=== PATIENT | male | born 1950 | race Caucasian/White ===

== ENCOUNTER → 2017-12-04 | Outpatient (CLI) | payer MEDICARE, OTHER | LOC: RAD 07:25 | PROVIDERS: ATTEND Family Medicine | DX: R07.9 Chest pain, unspecified (principal) | CPT/HCPCS: 93306 ==

== ENCOUNTER → 2018-01-10 | Day surgery (SDC) | payer MEDICARE, OTHER ==
[2018-01-09 11:22] LABS: BASOPHILS # (AUTO) 0.1 (0.0-0.1); BASOPHILS % 0.6 % (0.0-1.0); EOSINOPHILS # (AUTO) 0.1 (0.0-0.4); EOSINOPHILS % 1.6 % (0.0-6.0); HEMOGLOBIN 10.8 g/dL (14.0-18.0); LYMPHOCYTES # (AUTO) 1.1 (1.0-3.2); LYMPHOCYTES % 11.7 % (18.0-39.1); MEAN CORPUSCULAR HEMOGLOBIN 30.3 pg (28-32); MEAN CORPUSCULAR HGB CONC 33.8 g/dL (31-35); MEAN CORPUSCULAR VOLUME 89.9 fL (81-99); MONOCYTES # (AUTO) 0.8 (0.2-0.8); MONOCYTES % 8.5 % (4.4-11.3); NEUTROPHILS # (AUTO) 6.9 (2.1-6.9); PLATELET COUNT 217 x10e3/uL (140-360); RED BLOOD COUNT 3.56 x10e6/uL (4.3-5.7); RED CELL DISTRIBUTION WIDTH 11.9 % (11.7-14.4)
[~2018-01-10] MED LIST: AMIODARONE HCL200 MG PO; AMLODIPINE BESY10 MG PO; AMLODIPINE BESYL5 MG PO; ATORVASTATIN CA20 MG PO; BUMETANIDE1 MG PO; DIGOXIN125 MCG PO; ELIQUIS PO; FUROSEMIDE40 MG PO; GLIMEPIRIDE2 MG PO; HUMALOG100 UNIT/1 SQ; HYDRALAZINE HCL25 MG PO; LANTUS 3ML100 UNITS/ SC; LIDOCAINE HCL 2% LOCAL INJ 5 ML SDV VIAL INJ ONE; LISINOPRIL2.5 MG PO; METOPROLOL TART25 MG PO; MIDAZOLAM HCL 2 MG/2 ML VIAL ONE; NOVOLOG100 UNIT/1 SC; OMEPRAZOLE40 MG PO; PROPOFOL IV EMULSION 10 MG/ML 50 ML VIAL ONE; SPIRONOLACTONE25 MG PO; VESICARE5 MG PO; VITAMIN D22000 UNIT PO
[2018-01-10 11:41] VITALS: BP 120/53
--- NOTE | 2018-01-10 12:44 | Operative Report ---
DATE OF PROCEDURE: January 10, 2018 REFERRING PHYSICIAN: Dr. Re Bauer. PROCEDURE PERFORMED: Esophagogastroduodenoscopy with biopsies and colonoscopy with polypectomy. INDICATIONS FOR ESOPHAGOGASTRODUODENOSCOPY: History of intermittent bouts of nausea and vomiting, black stools. INDICATIONS FOR COLONOSCOPY: Colorectal cancer screening, positive fecal occult blood. MEDICATION: Patient was done under MAC. Please see anesthesiologist's note. PROCEDURE: With patient in left lateral decubitus position, flexible fiberoptic Olympus gastroscope was introduced into the esophagus under direct visualization without any difficulty. There was a minute tongue of velvety red mucosa noted to extend proximally from the GE junction that was biopsied to rule out Lundberg's. The scope was then advanced with ease into the stomach and the mucosa overlying the antrum and the body revealed some patchy erythema and low-grade to moderate edema and biopsies were obtained, sent to stain for H. pylori. Pylorus was of normal contour and shape. It was intubated with ease and the scope was advanced all the way to the second portion of the duodenum. The scope was then withdrawn slowly. Mucosa overlying the proximal second portion and the duodenal bulb appeared to be within normal limits. The scope was then withdrawn back into the stomach and retroflexed. Mucosa overlying the fundus and the cardia appeared to be within normal limits. The scope was then straightened out. It was subsequently withdrawn. Patient tolerated the procedure well. IMPRESSION 1. Mild distal esophagitis. 2. Rule out Lundberg's esophagus. 3. Gastritis biopsied. Biopsies sent to stain for Helicobacter pylori. PLAN: Follow up histology. Increased omeprazole to 40 mg 1 p.o. a.c. b.i.d. PROCEDURE FOR COLONOSCOPY: The patient was then turned around. After adequate lubrication of the anal canal, a flexible fiberoptic Olympus colonoscope was inserted into the rectum with ease and advanced all the way to the cecum. It was then withdrawn slowly. Mucosa overlying the cecum, ascending colon, and transverse colon appeared to be within normal limits. One polyp was hot biopsied from the descending colon. Some minimal diverticulosis was noted in the distal descending and the sigmoid colon. One polyp was snared from the sigmoid colon. The rectum appeared to be within normal limits. The scope was then retroflexed into the distal rectum and small internal hemorrhoids were noted, none of which was actively bleeding. The scope was then straightened out. The scope was subsequently withdrawn. Patient tolerated the procedure well. IMPRESSION 1. Descending colon polyp hot biopsied. 2. Diverticulosis, minimal. 3. Sigmoid colon polyp snared. 4. Internal hemorrhoids, none actively bleeding. PLAN: Follow up histology. Initiate high-fiber, low-fat diet. Initiate high-fiber supplement. Patient will need a followup colonoscopy in 3 to 5 years. Job#: [id number] VAS cc:DR RE BAUER
== END | disposition home or self-care (01) ==
LOC: OR 08:23
PROVIDERS: ATTEND Internal Medicine Gastroenterology
DX: Z12.11 Encounter for screening for malignant neoplasm of colon (principal); D12.5 Benign neoplasm of sigmoid colon; R11.2 Nausea with vomiting, unspecified; R05 Cough; K92.1 Melena; E78.5 Hyperlipidemia, unspecified; I10 Essential (primary) hypertension; I25.10 Atherosclerotic heart disease of native coronary artery without angina pectoris; Z95.2 Presence of prosthetic heart valve; K20.9 Esophagitis, unspecified; K63.5 Polyp of colon; K57.30 Diverticulosis of large intestine without perforation or abscess without bleeding; K64.8 Other hemorrhoids; E11.9 Type 2 diabetes mellitus without complications; K29.50 Unspecified chronic gastritis without bleeding
CPT/HCPCS: 36415 ×2; 43239; 45384; 45385; 82948; 85025; 88305; 88312; 93005; J2001; J2250; 45378

== ENCOUNTER 2018-06-30 12:45 | Inpatient (IN) | payer MEDICARE, OTHER ==
[~2018-06-30] VITALS: Ht 175.3 cm; Wt 99.5 kg
[~2018-06-30 12:45] MED LIST changes: -LIDOCAINE HCL 2% LOCAL INJ 5 ML SDV VIAL INJ ONE; -MIDAZOLAM HCL 2 MG/2 ML VIAL ONE; -PROPOFOL IV EMULSION 10 MG/ML 50 ML VIAL ONE
--- OUTSIDE RECORDS SUMMARY | 2018-06-30 12:48 | XMS REPORT | Clinical Summary ---
Author Author [facility] Organization [facility] Address Unknown Phone Unavailable Care Team Providers Care Lamps Tester And Inspector Name Role Phone Thom Finn MD PCP Allergies No Known Allergies Medications End Date Status Medication Sig Dispensed Refills Start Date Active aspirin (ECOTRIN) 81 MG Take 81 mg by 0 enteric coated tablet mouth daily. 07/04/2017 amIODarone (PACERONE) 200 Take 1 tablet 30 tablet 0 201 MG tablet (200 mg 8 total) by mouth daily for 30 days. 07/04/2017 amLODIPine (NORVASC) 5 mg Take 1 tablet 30 tablet 0 tablet (5 mg total) 8 by mouth daily for 30 days. 07/03/2017 apixaban (ELIQUIS) 2.5 mg Take 1 tablet 60 tablet 0 tablet (2.5 mg 8 total) by mouth 2 (two) times a day for 30 days. 07/03/2017 atorvastatin (LIPITOR) 40 Take 1 tablet 30 tablet 0 MG tablet (40 mg total) 8 by mouth nightly for 30 days. 07/04/2017 digOXIN (LANOXIN) 125 mcg Take 1 tablet 30 tablet 0 tablet (125 mcg 8 total) by mouth daily for 30 days. 07/09/2017 ergocalciferol (VITAMIN Take 1 4 capsule 0 D2) 50,000 unit capsule capsule 8 (50,000 Units total) by mouth once a week for 30 days. 07/03/2017 ferrous sulfate 325 (65 Take 1 tablet 60 tablet 0 FE) MG tablet (325 mg 8 total) by mouth 2 (two) times a day with meals for 30 days. 07/04/2017 furosemide (LASIX) 40 mg Take 1 tablet 30 tablet 0 tablet (40 mg total) 8 by mouth daily for 30 days. 07/03/2017 hydrALAZINE (APRESOLINE) Take 1 tablet 90 tablet 0 25 MG tablet (25 mg total) 8 by mouth every 8 (eight) hours for 30 days. 07/03/2017 insulin GLARGINE (LANTUS) Inject 20 6 mL 0 100 unit/mL injection Units under 8 (vial) the skin nightly for 30 days. 07/03/2017 insulin lispro (HumaLOG) Inject 10 10 mL 12 100 unit/mL injection Units under 8 the skin daily before dinner for 30 days. 07/04/2017 insulin lispro (HumaLOG) Inject 14 10 mL 12 100 unit/mL injection Units under 8 the skin daily before lunch for 30 days. 07/04/2017 insulin lispro (HumaLOG) Inject 16 10 mL 12 100 unit/mL injection Units under 8 the skin daily with breakfast for 30 days. 07/04/2017 lisinopril Take 1 tablet 30 tablet 0 (PRINIVIL,ZESTRIL) 5 mg (5 mg total) 8 tablet by mouth daily for 30 days. 07/03/2017 metoprolol tartrate Take 1 tablet 60 tablet 0 (LOPRESSOR) 25 mg tablet (25 mg total) 8 by mouth 2 (two) times a day for 30 days. 07/03/2017 spironolactone Take 1 tablet 60 tablet 0 (ALDACTONE) 25 MG tablet (25 mg total) 8 by mouth 2 (two) times a day for 30 days. 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 Last Filed Vital Signs Not on file Plan of Treatment Health Maintenance Due Date Last Done Comments DIABETIC RETINAL EYE EXAM 1950 DIABETIC FOOT EXAM 1958 URINE MICROALBUMIN 1958 COLON CANCER SCREENING 1998 SHINGLES VACCINES (1 of 1998 2) PNEUMOCOCCAL 2013 POLYSACCHARIDE VACCINE AGE 65 AND OVER PNEUMOCOCCAL-13 2013 INFLUENZA VACCINE 12/13/2017 Implants Device Identifier Shelf Expiration Date Model / Serial / Lot Implanted Type [place] Manufactur [place] 6500F / / Lead Pace David Mycrdl Unipol Tmpry Cardiovasc N/A: N/A MEDTR[employer] Streamline - [id number] [facility] [place] - Implanted: 05/03/2017 (Quantity not Implants CARDIAC on file) SRGRY 06/23/2020 E100 23A 00 / [id number] / [id number] Valve Aortc Stntd Tiss Annls W/ Cardiovasc N/A: N/A ST TISHA Linx Ac Tech 23mm Epic - [id number] [facility] STRUCTURAL Implanted: 05/03/2017 (Quantity not Implants HEART on file) 6500F / / Lead Pace David Mycrdl Unipol Tmpry Cardiovasc N/A: N/A [employer] Streamline - [id number] [facility] [place] - Implanted: 05/03/2017 (Quantity not Implants CARDIAC on file) SRGRY 6500F / / Lead Pace David Mycrdl Unipol Tmpry Cardiovasc N/A: N/A [employer] Streamline - [id number] [facility] [place] - Implanted: 05/03/2017 (Quantity not Implants CARDIAC on file) SRGRY [id number] / / Clip Ligtng Weck Hemoclip Plus W/ Medical N/A: N/A TELEFLEX Tape Ti Lg - [id number] Clips for MEDICAL Implanted: 05/03/2017 (Quantity not Internal on file) Use [id number] / / Clip Ligtng [place] Hemoclip Plus W/ Medical N/A: N/A TELEFLEX Tape Ti Med - [id number] Clips for MEDICAL Implanted: 05/03/2017 (Quantity not Internal on file) Use 03/11/2022 [id number] / / [id number] [place] Perph Vasclr Ptfe 1.2x10cm Vascular N/A: N/A BARD 1.65mm - [id number] Graft PERIPHERAL Implanted: 05/03/2017 (Quantity not VASCULAR on file) 01/09/2022 [id number] / / [id number] [place] Perph Vasclr Ptfe 1.2x10cm Vascular N/A: N/A BARD 1.65mm - [id number] Graft PERIPHERAL Implanted: 05/03/2017 (Quantity not VASCULAR on file) 10/09/2021 [id number] / / [id number] [place] Perph Vasclr Ptfe 1.2x10cm Vascular N/A: N/A BARD 1.65mm - [id number] Graft PERIPHERAL Implanted: 05/03/2017 (Quantity not VASCULAR on file) Procedures Comments Procedure Name Priority Date/Time Associated Diagnosis TRANSFUSE PLATELETS Routine 01/17/2018 5:46 PM CDT after 06/29/2017 Results * Transfuse platelets (01/17/2018 5:46 PM CDT) after 06/29/2017 Insurance Payer Benefit Subscriber ID Type Phone Address Plan / Group MEDICARE MEDICARE xxxxxxxxxx Medicare [place], [place] PART A AND B BANKERS LIFE AND CASUALTY BANKERS xxxxxxxxx Commercial LIFE AND CASUALTY Advance Directives Patient has advance care planning documents on file. For more information, mason saravia contact: Farhat Scott [address] [place] [address]
[2018-06-30 13:33] LABS: BASOPHILS % 0.2 % (0.0-1.0); HEMATOCRIT 42.2 % (38.2-49.6); HEMOGLOBIN 15.2 g/dL (14.0-18.0); LYMPHOCYTES # (AUTO) 0.1 (1.0-3.2); LYMPHOCYTES % 1.1 % (18.0-39.1); MEAN CORPUSCULAR HEMOGLOBIN 30.9 pg (28-32); MEAN CORPUSCULAR VOLUME 85.8 fL (81-99); MONOCYTES # (AUTO) 0.4 (0.2-0.8); MONOCYTES % 3.5 % (4.4-11.3); NEUTROPHILS # (AUTO) 11.2 (2.1-6.9); NEUTROPHILS % 94.5 % (38.7-80.0); PLATELET COUNT 168 x10e3/uL (140-360); RED BLOOD COUNT 4.92 x10e6/uL (4.3-5.7); RED CELL DISTRIBUTION WIDTH 12.7 % (11.7-14.4)
[2018-06-30 13:51] LABS: INR 0.95; PROTHROMBIN TIME 13.5 seconds (11.9-14.5)
[2018-06-30 13:52] LABS: PARTIAL THROMBOPLASTIN TIME 28.3 seconds (23.8-35.5)
[2018-06-30] MEDS: SODIUM CHLORIDE 0.9% 1000ML 1,000 ML IV SCH ×3 (14:00→18:04)
[2018-06-30 14:01] LABS: ALBUMIN 3.8 g/dL (3.5-5.0); ALBUMIN/GLOBULIN RATIO 1.2 (0.8-2.0); ANION GAP 19.7 mmol/L (8-16); CALCIUM 9.3 mg/dL (8.4-10.2); CREATININE, SERUM 2.06 mg/dL (0.72-1.25); POTASSIUM 4.7 mmol/L (3.5-5.1)
[2018-06-30 14:07] LABS: CREATINE KINASE MB 0.3 ng/mL (0-5.0)
--- NOTE | 2018-06-30 14:09 | NUR ---
[facility] FROM LAB CALLED TO REPORT CRITICAL BLOOD GLUCOSE 475 MG/DL. INFORMED DR. ANDERSON AND THOM, RN PRIMARY NURSE.
[2018-06-30] MEDS ORDERED: ACETAMINOPHEN 325 MG TAB PO ONE (14:30)
--- NOTE | 2018-06-30 14:41 | Diagnostic Imaging Report ---
EXAMINATION: CHEST SINGLE (PORTABLE) INDICATION: ^FEVER ^[id number] ^1330 COMPARISON: None FINDINGS: AP view TUBES and LINES: None. LUNGS: Lungs are well inflated. Lungs are clear. There is no evidence of pneumonia or pulmonary edema. PLEURA: No pleural effusion or pneumothorax. HEART AND MEDIASTINUM: The cardiomediastinal silhouette is unremarkable.. BONES AND SOFT TISSUES: Intact median sternotomy wires. Soft tissues are unremarkable. UPPER ABDOMEN: No free air under the diaphragm. IMPRESSION: No acute thoracic abnormality. Signed by: Dr. Clair Mead M.D. on 06/30/2018 2:38 PM
[2018-06-30] MEDS ORDERED: METOPROLOL TART25 MG PO (14:47)
[2018-06-30] MEDS ORDERED: OMEPRAZOLE40 MG PO (14:47)
[2018-06-30] MEDS ORDERED: FERROUS SULFAT325 MG PO (14:47)
[2018-06-30] MEDS ORDERED: BUMETANIDE1 MG PO (14:47)
[2018-06-30] MEDS ORDERED: ELIQUS PO (14:47)
[2018-06-30] MEDS ORDERED: LIPITOR20 MG PO (14:47)
[2018-06-30] MEDS ORDERED: BENZONATATE100 MG PO (14:47)
[2018-06-30] MEDS ORDERED: PREDNISONE10 MG PO (14:47)
[2018-06-30] MEDS ORDERED: LASIX40 MG PO (14:47)
[2018-06-30 14:55] LABS: CLARITY,URINE CLEAR (CLEAR); COLOR,URINE YELLOW (YELLOW); LEUKOCYTE ESTERASE ,URINE NEGATIVE (NEGATIVE); NITRITE,URINE NEGATIVE (NEGATIVE); PROTEIN,URINE DIPSTICK NEGATIVE (NEGATIVE)
[2018-06-30 14:56] LABS: BILIRUBIN,URINE NEGATIVE (NEGATIVE); KETONES,URINE 1+ (NEGATIVE); URINE UROBILINOGEN 0.2 mg/dL (0.2 - 1)
[2018-06-30] MEDS ORDERED: SPIRONOLACTONE25 MG PO (14:59)
[2018-06-30] MEDS ORDERED: VESICARE5 MG PO (14:59)
[2018-06-30] MEDS ORDERED: AMIODARONE HCL200 MG PO (14:59)
[2018-06-30 15:07] LABS: EPITHELIAL CELLS,URINE FEW /LPF; RBC,URINE 0-5 /HPF (0-5); WBC,URINE (MAN) 0-5 /HPF (0-5)
[2018-06-30 15:13] LABS: BAND NEUTROPHILS % (MANUAL) 3 %; LYMPHOCYTES % (MANUAL) 3 % (19-48); MONOCYTES % (MANUAL) 5 % (3.4-9.0); NEUTROPHILS % (MANUAL) 89 % (40-74)
[2018-06-30 15:15] LABS: PLATELET ESTIMATE ADEQUATE; PLATELET MORPHOLOGY COMMENT NORMAL
[2018-06-30] MEDS ORDERED: INSULIN REGULAR, HUMAN 100 UNIT/1 ML 3ML VIAL IV ONE (15:15)
[2018-06-30 15:17] LABS: ANISOCYTOSIS SLIGHT; RBC MORPHOLOGY COMMENT NORMAL
--- NOTE | 2018-06-30 15:28 | Diagnostic Imaging Report ---
ADDENDUM #[address]. Vidhi Mcdonald's report were reviewed and signed by Dr. Ramya Mack, neuroradiology faculty, on 06/30/2018 at 1829 hours. Signed by: Dr. Ramya Mack M.D. on 06/30/2018 6:29 PM ORIGINAL REPORT Head CT without contrast History: Altered mental status Comparison studies: None Technique: Axial images were obtained from the skull base to the vertex. Coronal and sagittal reconstructions obtained from the axial data. Dose modulation, iterative reconstruction, and/or weight based adjustment of the mA/kV was utilized to reduce the radiation dose to as low as reasonably achievable. Findings: Scalp/skull: No abnormalities. No fractures, blastic or lytic lesions. Extra-axial spaces: No masses. No fluid collections. Brain sulci: Mildly enlarged. Ventricles: Mild compensatory dilatation. No hydrocephalus. Parenchyma: Chronic lacunar infarct in the left frontal bello radiata and right thalamus. Confluent hypodensities in the supratentorial white matter are small vessel ischemic changes. No masses, hemorrhage, acute or chronic cortical vascular insults. Sellar/suprasellar region: No abnormalities Craniocervical junction: Patent foramen magnum. No Chiari one malformation. Incidental: * Moderate calcified atherosclerotic plaque in the bilateral carotid siphons, V4 segment of the left vertebral artery and in the basilar artery. * The lumen of the middle and distal segments of the basilar artery are mildly hyperdense (image 36, coronal series; image 9, axial series). IMPRESSION: 1. No mass, hemorrhage or acute vascular territorial insult. 2. Mildly hyperdense basilar artery lumen could be due to artifact, calcification or possibly thrombus. If clinically concerned, a CTA of the head and neck could further evaluate patency. 3. Moderate supratentorial microvascular ischemic changes with moderate generalized volume loss. Preliminary report dictated by Dr. Vidhi Mcdonald, Neuroradiology Fellow. A final report by the attending radiologist will follow. Signed by: Vidhi Mcdonald MD on 06/30/2018 3:24 PM
--- NOTE | 2018-06-30 15:37 | NUR ---
BLADDER SCANNED 30 MINS AFTER VOIDING. FIRST 360, 2ND 82, 3RD WAS ZERO. REPEAT WITH SIMILAR.
[2018-06-30] MEDS ORDERED: SODIUM CHLORIDE 0.9% 1000ML 1,000 ML IV STA (17:16)
[2018-06-30] MEDS: CEFTRIAXONE SOD 1 GM/NS 50 ML 50 ML IV SCH (17:20)
[2018-06-30] MEDS ORDERED: SODIUM CHLORIDE 0.9% 1000ML 1,000 ML IV ONE (17:30)
[2018-06-30] MEDS ORDERED: ONDANSETRON HCL INJ 2MG/ML 2ML 2 MG/ML VIAL IV PRN (17:30)
[2018-06-30] MEDS ORDERED: DEXTROSE 50% SYRINGE 50 ML IV PRN (17:30)
--- OUTSIDE RECORDS SUMMARY | 2018-06-30 17:44 | XMS REPORT ---
Author Author [facility] Address Unknown Phone Unavailable Care Team Providers Care Building Cleaning Supervisor Name Role Phone Haim ANDERSON Unavailable Unavailable Problems This patient has no known problems. Allergies, Adverse Reactions, Alerts This patient has no known allergies or adverse reactions. Medications This patient has no known medications. Results Test Description Test Time Test Comments Text Results Atomic Results Result Comments CT BRAIN WO 2018-06-30 15:15:00 [place] [address] Patient Name: CRISTHIAN CALIX MR #: [id number] : 1950 Age/Sex: 68/M Req #: [id number] Adm Physician: Ordered by: KADE ANDERSON MD Report #: [id number] Location: ER Room/Bed: Procedure: [id number] CT/CT BRAIN WO Exam Date: Exam Time: REPORT STATUS: Signed Head CT without contrast History: Altered mental status Comparison studies: None Technique: Axial images were obtained from the skull base to the vertex. Coronal and sagittal reconstructions obtained from the axial data. Dose modulation, iterative reconstruction, and/or weight based adjustment of the mA/kV was utilized to reduce the radiation dose to as low as reasonably achievable. Findings: Scalp/skull: No abnormalities. No fractures, blastic or lytic lesions. Extra-axial spaces: No masses. No fluid collections. Brain sulci: Mildly enlarged. Ventricles: Mild compensatory dilatation. No hydrocephalus. Parenchyma: Chronic lacunar infarct in the left frontal bello radiata and right thalamus. Confluent hypodensities in the supratentorial white matter are small vessel ischemic changes. No masses, hemorrhage, acute or chronic cortical vascular insults. Sellar/suprasellar region: No abnormalities Craniocervical junction: Patent foramen magnum. No Chiari one malformation. Incidental: * Moderate calcified atherosclerotic plaque in the bilateral carotid siphons, V4 segment of the left vertebral artery and in the basilar artery. * The lumen of the middle and distal segments of the basilar artery are mildly hyperdense (image 36, coronal series; image 9, axial series). IMPRESSION: 1. No mass, hemorrhage or acute vascular territorial insult. 2. Mildly hyperdense basilar artery lumen could be due to artifact, calcification or possibly thrombus. If clinically concerned, a CTA of the head and neck could further evaluate patency. 3. Moderate supratentorial microvascular ischemic changes with moderate generalized volume loss. Preliminary report dictated by Dr. Vidhi Mcdonald, Neuroradiology Fellow. A final report by the attending radiologist will follow. Signed by: Vidhi Mcdonald MD on 06/30/2018 3:24 PM Dictated By: VIDHI MCDONALD MD 1524 Transcribed By: PILI on 06/30/18 1524 COPY TO: KADE ANDERSON MD CHEST SINGLE (PORTABLE) 2018-06-30 14:38:00 [place] [address] Patient Name: CRISTHIAN CALIX MR #: [id number] : 1950 Age/Sex: 68/M Req #: [id number] Adm Physician: Ordered by: KADE ANDERSON MD Report #: [id number] Location: ER Room/Bed: Procedure: [id number] DX/CHEST SINGLE (PORTABLE) Exam Date: 06/30/18 Exam Time: 1330 REPORT STATUS: Signed EXAMINATION: CHEST SINGLE (PORTABLE) IN DICATION: FEVER [id number] 1330 COMPARISON: None FINDINGS: AP view TUBES and LINES: None. LUNGS: Lungs are well inflated. Lungs are clear. There is no evidence of pneumonia or pulmonary edema. PLEURA: No pleural effusion or pneumothorax. HEART AND MEDIASTINUM: The cardiomediastinal silhouette is unremarkable.. BONES AND SOFT TISSUES: Intact median sternotomy wires. Soft tissues are unremarkable. UPPER ABDOMEN: No free air under the diaphragm. IMPRESSION: No acute thoracic abnormality. Signed by: Dr. Robin Buchanan M.D. on 06/30/2018 2:38 PM Dictated By: ROBIN BUCHANAN MD 1438 Transcribed By: PILI on 06/30/18 1438 COPY TO: KADE ANDERSON MD
--- OUTSIDE RECORDS SUMMARY | 2018-06-30 17:44 | XMS REPORT | Clinical Summary ---
Author Author [facility] Organization [facility] Address Unknown Phone Unavailable Care Team Providers Care Sports Broadcasting Internship Name Role Phone Thom Finn MD PCP [...] Tmpry Cardiovasc N/A: N/A [employer] Streamline - [id number] [facility] [place] - Implanted: 05/03/2017 (Quantity not Implants CARDIAC on file) SRGRY 06/23/2020 E100 23A 00 / [id number] / [id number] Valve Aortc Stntd Tiss Annls W/ Cardiovasc N/A: N/A ST TISHA Linx Ac Tech 23mm Epic - [id number] [facility] STRUCTURAL Implanted: 05/03/2017 (Quantity not Implants HEART on file) [id number] / / Lead Pace David Mycrdl Unipol Tmpry Cardiovasc N/A: N/A [employer] Streamline - [id number] [facility] [place] - Implanted: 05/03/2017 (Quantity not Implants CARDIAC on file) SRGRY [id number] / / Lead Pace David Mycrdl Unipol Tmpry Cardiovasc N/A: N/A [employer] Streamline - [id number] [facility] [place] - Implanted: 05/03/2017 (Quantity not Implants CARDIAC on file) SRGRY [id number] / / Clip Ligtng Weck Hemoclip Plus W/ Medical N/A: N/A TELEFLEX Tape Ti Lg - [id number] Clips for MEDICAL Implanted: 05/03/2017 (Quantity not Internal on file) Use [id number] / / Clip Ligtng Al[place] Hemoclip Plus W/ Medical N/A: N/A TELEFLEX Tape Ti Med - [id number] Clips for MEDICAL Implanted: 05/03/2017 (Quantity not Internal on file) Use 03/11/2022 [id number] / / [id number] [place] Perph Vasclr Ptfe 1.2x10cm Vascular N/A: N/A BARD 1.65mm - [id number] Graft PERIPHERAL Implanted: 05/03/2017 (Quantity not VASCULAR on file) 01/09/2022 [id number] / / [id number] [place] Perph Vasclr Ptfe 1.2x10cm Vascular N/A: N/A BARD 1.65mm - [id number] Graft PERIPHERAL Implanted: 05/03/2017 (Quantity not VASCULAR on file) 10/09/2021 [id number] / / [id number] [place] Perph Vasclr Ptfe 1.2x10cm Vascular N/A: N/A BARD 1.65mm - [id number] Graft PERIPHERAL Implanted: 05/03/2017 (Quantity not VASCULAR on file) Procedures Comments Procedure Name Priority Date/Time Associated Diagnosis TRANSFUSE PLATELETS Routine 01/17/2018 5:46 PM CDT after 06/29/2017 Results * Transfuse platelets (01/17/2018 5:46 PM CDT) after 06/29/2017 Insurance Payer Benefit Subscriber ID Type Phone Address Plan / Group MEDICARE MEDICARE xxxxxxxxxx Medicare [place], [place] PART A AND B BANKERS LIFE AND CASUALTY BANKERS xxxxxxxxx Commercial LIFE AND CASUALTY Advance Directives Patient has advance care planning documents on file. For more information, mason saravia contact: Farhat Scott [address] [place] [address]
[2018-06-30] MEDS ORDERED: INSULIN LISPRO 100 UNIT/1 ML 3ML VIAL SQ ONE (18:00)
--- NOTE | 2018-06-30 18:00 | NUR ---
RT notified of need for ABG.
[2018-06-30] MEDS: ACETAMINOPHEN 1000 MG/100 ML IV PRN (18:28)
[2018-06-30] MEDS: AZITHROMYCIN 500MG/NS 250 ML 250 ML IV SCH (18:40)
[2018-06-30 18:42] LABS: ABG PH 7.43 (7.31-7.41)
[2018-06-30 18:43] LABS: ABG HCO3 22 mmol/L (23-28); ABG PCO2 33 mmHg (41-51); ABG PO2 77 mmHg (80-105)
--- NOTE | 2018-06-30 18:50 | Diagnostic Imaging Report ---
EXAMINATION: CHEST 2 VIEWS INDICATION: ^COUGH, FEVER COMPARISON: Chest radiograph 06/30/2018 FINDINGS: PA and lateral views TUBES and LINES: None. LUNGS: Lungs are well inflated. Since prior exam there has been interval development of bilateral interstitial edema. Reticular nodular opacities in the left retrocardiac region. PLEURA: No pleural effusion or pneumothorax. HEART AND MEDIASTINUM: Stable cardiomegaly. BONES AND SOFT TISSUES: Intact median sternotomy wires. Soft tissues are unremarkable. UPPER ABDOMEN: No free air under the diaphragm. IMPRESSION: Interval development of bilateral interstitial edema. On lateral view, there are reticular nodular opacities may reflect superimposed infection. Signed by: Dr. Clair Mead M.D. on 06/30/2018 6:47 PM
--- NOTE | 2018-06-30 19:10 | NUR ---
RECIEVED REPORT FROM VANDANA CERVANTES DAY SHIFT NURSE.
--- NOTE | 2018-06-30 19:10 | NUR ---
Walking rounds with Afsaneh Vance RN.
[2018-06-30] MEDS ORDERED: FUROSEMIDE INJ 10 MG/ML 4 ML VIAL IV ONE (19:30)
[2018-06-30 22:19] VITALS: BP 96/55
--- NOTE | 2018-06-30 22:19 | NUR ---
patient recieved to room 287 via stretcher. bp 96/55 hr 89 temp 100.1 rr 20. patient awake, alert and oriented x 3. patient slow to respond to questions. 02 sats 97% on /nc. patient voids per urinal without difficulty. Telemetry #22 shows NSR at this time. NS infusing at 100cc hr to the right ac. skin assessed, there's a very small red area noted to sacrum. patient states, " I may scratched myself in that area. " Bruised areas noted to bilateral upper extremities. deformity/weakness noted to left arm due to on the job injury at age 16. admit assessment/history obtained. bed low, side rails up x 3 and call lan placed within reach. remains at the bedside. patient/ instructed to call for assistance when needed.
--- NOTE | 2018-06-30 22:50 | NUR ---
cardiac marker drawn and sent to lab at this time.
[2018-06-30] MEDS: INSULIN LISPRO 100 UNIT/1 ML 3ML VIAL SQ SCH (23:13)
--- NOTE | 2018-06-30 23:13 | NUR ---
blood sugar 321. 16 units humalog given per sliding scale to left arm. patient given a hs snack at this time.
[2018-06-30 23:44] LABS: CREATINE KINASE MB 0.2 ng/mL (0-5.0)
[2018-07-01] MEDS: ACETAMINOPHEN 1000 MG/100 ML IV PRN (03:45)
--- NOTE | 2018-07-01 03:45 | NUR ---
patient medicated with tylenol iv 1000mg for temp 101.7 at this time.
[2018-07-01 04:00] VITALS: BP 140/64
[2018-07-01 05:57] LABS: BASOPHILS % 0.2 % (0.0-1.0); HEMATOCRIT 34.2 % (38.2-49.6); LYMPHOCYTES # (AUTO) 0.2 (1.0-3.2); LYMPHOCYTES % 1.8 % (18.0-39.1); MEAN CORPUSCULAR HEMOGLOBIN 30.8 pg (28-32); MEAN CORPUSCULAR HGB CONC 35.1 g/dL (31-35); MEAN CORPUSCULAR VOLUME 87.7 fL (81-99); MONOCYTES # (AUTO) 0.6 (0.2-0.8); NEUTROPHILS # (AUTO) 9.5 (2.1-6.9); NEUTROPHILS % 91.4 % (38.7-80.0); PLATELET COUNT 116 x10e3/uL (140-360); RED CELL DISTRIBUTION WIDTH 12.9 % (11.7-14.4)
[2018-07-01] MEDS ORDERED: SODIUM CHLORIDE 0.9% 1000ML 1,000 ML ONE (06:16)
[2018-07-01 06:24] LABS: ALBUMIN 2.7 g/dL (3.5-5.0); ALBUMIN/GLOBULIN RATIO 1.2 (0.8-2.0); ANION GAP 14.7 mmol/L (8-16); CREATININE, SERUM 1.85 mg/dL (0.72-1.25); POTASSIUM 3.7 mmol/L (3.5-5.1)
--- NOTE | 2018-07-01 06:25 | NUR ---
here to see patient this am. blood sugar 310. lantus 15 units sq given at this time. ivf continue to infuse at 100cc hr for 12 more hours and vancomycin 1 gm iv given x 1 dose per orders.
[2018-07-01] MEDS: SODIUM CHLORIDE 0.9% 1000ML 1,000 ML IV SCH (06:30)
[2018-07-01] MEDS ORDERED: VANCOMYCIN 1GM/NS 250 ML 250 ML IV ONE (06:30)
[2018-07-01] MEDS: INSULIN GLARGINE 100 UNITS/ML VIAL SQ SCH ×2 (06:33→17:13)
[2018-07-01 08:00] VITALS: BP 103/55
--- NOTE | 2018-07-01 08:47 | History and Physical ---
CHIEF COMPLAINT: This patient comes in with acute mental status changes. HISTORY OF PRESENTING ILLNESS: This is Mr. Steven Medrano with a history of coronary artery disease, congestive heart failure, and atrial fibrillation, was in his usual state of health until about 2 days prior to admission, the patient had upper respiratory symptoms and went in to see the nurse practitioner. The patient was given antibiotics and the patient yesterday started to have confusion and change in mental status. The patient had waxing and waning symptoms. The patient came into emergency room with acute mental status changes. He was found naked in bed and also in the sofa and not aware of his surroundings. The patient was started on antibiotics yesterday and IV fluids and comes in with diagnosis of acute encephalopathy, diabetic hyperosmolar nonketotic state, dehydration, and leukocytosis. PAST MEDICAL HISTORY: History of coronary artery disease, history of congestive heart failure, history of chronic paroxysmal atrial fibrillation, history of hypertension, history of reflux esophagitis, history of CABG, and history of incontinence. MEDICATIONS: Medicines he takes at home are; 1. Amiodarone 200 mg one day. 2. Atorvastatin 80 mg daily. 3. Benzonatate 100 mg 3 times a day, which was recently started. 4. Bumex 1 mg daily. 5. Ferrous sulfate 325 mg daily. 6. Lasix 40 mg daily. 7. Metoprolol 25 mg daily. 8. Omeprazole 40 mg daily. 9. Prednisone, which was recently started., 10. VESIcare 5 mg daily. 11. Aldactone 25 mg twice a day. 12. The patient also takes Eliquis for anticoagulation. PAST SURGICAL HISTORY: History of CABG and history of TAVR. REVIEW OF SYSTEMS: Negative for chest pain. No shortness of breath. No nausea, vomiting, or diarrhea. Positive for coughing and congestion. Positive for flushing. Positive for acute mental status changes. No diplopia. No blurry vision. SOCIAL HISTORY: No EtOH. No IV drug abuse. Lives with . ALLERGIES: NO KNOWN DRUG ALLERGIES NOTED. PHYSICAL EXAMINATION GENERAL: Patient is alert and oriented x3 as of now. The patient can respond to verbal stimuli and is a bit slow on responding, otherwise normal. HEENT: Normocephalic, atraumatic. Patient appears flushed in his face. CVS: S1 and S2 regular at this time with ejection systolic murmur. ABDOMEN: Nontender, nondistended. EXTREMITIES: No clubbing, no cyanosis, no edema. Left upper extremity with chronic changes and orthopedic changes. LABS: Initial laboratory values show white count of 11,000, trended down to 10.4, hemoglobin of 15.2 and hematocrit of 42.2 and are 12 and 34.2 today. Neutrophil count positive for left shift at 94.5 and 91.5. Coags are normal. Chemistries: First glucose was 475, sodium 132, BUN of 43, creatinine of 2.06. CK and CK-MB all within normal limits. Toxicology digoxin level was normal. Urine showed glucose and negative for leukocyte esterase and also for bacteria. MICROBIOLOGY: Pending throat culture. Pending blood culture. IMAGING: Chest x-ray, interval development of bilateral interstitial edema. Initial chest x-ray shows no acute thoracic abnormalities. Jaskaran CT shows no mass or hemorrhage. Mildly hyperdense basilar artery lumen, could be an artifact. Moderate supratentorial microvascular changes. ASSESSMENT AND PLAN: 1. Acute encephalopathy, probably metabolic in nature, also rule out septic encephalopathy. Currently, the patient is on Rocephin and azithromycin. We will continue this and follow up blood cultures. The patient will be started on insulin sliding scale and I will also start him on Lantus 15 units twice a day for controlling metabolic derangement. We will continue monitoring his blood pressures. Fluid resuscitation will be continued gently. I will follow also his volume status and stop as needed. 2. Uncontrolled diabetes with hyperosmolarity, again on insulin and fluids. 3. Hypertension. Continue with antihypertensive. 4. History of paroxysmal atrial fibrillation. Continue on Eliquis 2.5 mg twice a day and amiodarone 200 mg. 5. History of coronary artery disease, status post coronary artery bypass graft. We will continue on statins and also continue on beta-blockade and has Aldactone. 6. Acute kidney injury. We will continue monitoring it and the patient has baseline CKD. Creatinine runs above 1.4. Further recommendations per clinical course. Patient is stable, but prognosis remains guarded. We will keep a close eye on his electrolytes and further recommendations per clinical course. Also, the patient will be given 1 gram of vancomycin at this time. Job#: [id number] NATTY
[2018-07-01] MEDS: INSULIN LISPRO 100 UNIT/1 ML 3ML VIAL SQ SCH ×4 (08:57→21:00)
[2018-07-01] MEDS: AMIODARONE HCL 200 MG TAB PO SCH (08:58)
[2018-07-01] MEDS: SPIRONOLACTONE 25 MG TAB PO SCH ×2 (08:58→17:13)
[2018-07-01] MEDS: BUMETANIDE 1 MG TAB PO SCH (08:58)
[2018-07-01] MEDS: FERROUS SULFATE 325 MG TAB PO SCH (08:59)
[2018-07-01] MEDS: APIXAB 2.5 MG TABLET PO SCH (08:59)
[2018-07-01] MEDS: FUROSEMIDE 40 MG TAB PO SCH (08:59)
[2018-07-01] MEDS: PANTOPRAZOLE SOD 40 MG TABEC PO SCH ×2 (08:59→17:14)
[2018-07-01] MEDS: ATORVASTATIN 20 MG TAB PO SCH (08:59)
[2018-07-01] MEDS: SOLIFENACIN SUCCINATE 5 MG TAB PO SCH (08:59)
[2018-07-01] MEDS: METOPROLOL TARTRATE 25 MG TAB PO SCH ×2 (09:00→17:14)
[2018-07-01 09:33] LABS: BAND NEUTROPHILS % (MANUAL) 8 %; LYMPHOCYTES % (MANUAL) 5 % (19-48); MONOCYTES % (MANUAL) 6 % (3.4-9.0); NEUTROPHILS % (MANUAL) 81 % (40-74); PLATELET ESTIMATE ADEQUATE; PLATELET MORPHOLOGY COMMENT NORMAL; RBC MORPHOLOGY COMMENT NORMAL
--- NOTE | 2018-07-01 10:04 | NUR ---
Notified Dr. Elizabeth at this time of sodium level of 124 and received new orders for demeclocycline 300mg BID first dose now. Addendum: 07/01/18 at 1820 by Evelia Stapleton RN wrong chart
[2018-07-01 12:00] VITALS: BP 104/58
--- NOTE | 2018-07-01 14:21 | NUR ---
Notified Dr. Finn of positive blood culture for gram positive cocci and received new orders for vancomycin 1g q24 hrs start 07/02/18. vanco trough with third dose.
[2018-07-01 16:00] VITALS: BP 109/53
[2018-07-01] MEDS: CEFTRIAXONE SOD 1 GM/NS 50 ML 50 ML IV SCH (16:51)
[2018-07-01] MEDS: AZITHROMYCIN 500MG/NS 250 ML 250 ML IV SCH (17:14)
--- NOTE | 2018-07-01 19:00 | NUR ---
patient recieved awake, alert, lying quietly in bed. no c/o pain noted. ivf continue to infuse without difficulty. scd's bilateral legs in place. respirations even and unlabored. 02/2l/nc in use. pm assessment complete. noted at the bedside. patient/ instructed to call for assistance when needed.
[2018-07-01 20:00] VITALS: BP 107/58
[2018-07-02] VITALS (8 sets, daily range): BP systolic 95–130; BP diastolic 53–69
[2018-07-02] MEDS: SODIUM CHLORIDE 0.9% 1000ML 1,000 ML IV SCH (00:16)
[2018-07-02 06:04] LABS: BASOPHILS % 0.3 % (0.0-1.0); EOSINOPHILS # (AUTO) 0.1 (0.0-0.4); HEMATOCRIT 32.1 % (38.2-49.6); HEMOGLOBIN 11.1 g/dL (14.0-18.0); LYMPHOCYTES # (AUTO) 0.5 (1.0-3.2); LYMPHOCYTES % 6.5 % (18.0-39.1); MEAN CORPUSCULAR HEMOGLOBIN 30.7 pg (28-32); MEAN CORPUSCULAR HGB CONC 34.6 g/dL (31-35); MEAN CORPUSCULAR VOLUME 88.7 fL (81-99); MONOCYTES # (AUTO) 0.7 (0.2-0.8); NEUTROPHILS # (AUTO) 5.8 (2.1-6.9); NEUTROPHILS % 81.6 % (38.7-80.0); PLATELET COUNT 97 x10e3/uL (140-360); RED BLOOD COUNT 3.62 x10e6/uL (4.3-5.7); RED CELL DISTRIBUTION WIDTH 12.7 % (11.7-14.4)
[2018-07-02] MEDS: VANCOMYCIN 1GM/NS 250 ML 250 ML IV SCH (06:12)
--- NOTE | 2018-07-02 07:15 | NUR ---
PATIENT IN BED RESTING WITH NO RESPIRATORY DISTRESS. O2 IN PLACE VIA N/C. DENIED PAIN AT THIS TIME. BED IN OWER POSITION, CALL LIGHT AT REACH.
--- NOTE | 2018-07-02 07:18 | Progress Note ---
DATE: Patient is here for acute encephalopathy. Currently, the patient's mental status is better. Very coherent. Alert and oriented times 3. No chest pain. No shortness of breath. Patient is eating and has no altered mental status. PHYSICAL EXAMINATION VITAL SIGNS: Temperature is 98.9, T-max is 100.9 yesterday at 2000, , respirations of 18, blood pressure is 115/69, pulse oximetry of 96%. HEENT: Normocephalic and atraumatic. The patient appears a little flushed. CV: S1 and S2 normal. Regular rate and rhythm. ABDOMEN: Nontender and nondistended. EXTREMITIES: No clubbing. No cyanosis. No edema. MEDICATIONS: Currently: 1. Vancomycin q.24 h. 2. Insulin sliding scale. 3. The patient is on pantoprazole 40 mg. 4. Azithromycin. 5. Rocephin. 6. The patient's other CV medications include atorvastatin, Bumex, amiodarone, and furosemide. LABORATORY VALUES: From today, hemoglobin is 11.2, hematocrit of 32.1, neutrophil count is still trending down, but slow with the left shift. Chemistry: BUN of 40, creatinine of 1.85 and glucose of 283. The patient's toxicology is digoxin is 0.71. Vancomycin trough will be done today. MICROBIOLOGY: Gram stain and blood culture grew gram-positive growth detected, and still pending on culture workup. ASSESSMENT 1. Sepsis: Plan is to continue the patient on Rocephin, Zithromax and vancomycin until cultures come back. 2. Acute encephalopathy: Probably metabolic and septic. 3. Uncontrolled diabetes: Start on fluids. 4. Hyperosmotic: Continue with fluids. 5. History of paroxysmal atrial fibrillation: Continue Eliquis. 6. History of coronary artery disease: Continue on his cardiovascular medications. 7. Kidney injury: Creatinine is better at 1.8. Will recheck his creatinine today. Further recommendations per clinical course. The patient is stable. Will keep an eye on his electrolytes and also his fever and cultures still pending. Job#: [id number] DE
[2018-07-02] MEDS: INSULIN GLARGINE 100 UNITS/ML VIAL SQ SCH ×2 (07:30→16:30)
[2018-07-02] MEDS: INSULIN LISPRO 100 UNIT/1 ML 3ML VIAL SQ SCH ×4 (07:30→20:20)
[2018-07-02] MEDS: FAMOTIDINE 20 MG TAB PO SCH ×2 (08:05→16:30)
[2018-07-02] MEDS: ACETAMINOPHEN 325 MG TAB PO PRN (08:10)
[2018-07-02] MEDS: SPIRONOLACTONE 25 MG TAB PO SCH ×2 (09:30→17:41)
[2018-07-02] MEDS: FUROSEMIDE 40 MG TAB PO SCH (09:32)
[2018-07-02] MEDS: FERROUS SULFATE 325 MG TAB PO SCH (09:32)
[2018-07-02] MEDS: AMIODARONE HCL 200 MG TAB PO SCH (09:32)
[2018-07-02] MEDS: APIXAB 2.5 MG TABLET PO SCH (09:32)
[2018-07-02] MEDS: ATORVASTATIN 20 MG TAB PO SCH (09:32)
[2018-07-02] MEDS: BUMETANIDE 1 MG TAB PO SCH (09:32)
[2018-07-02] MEDS: SOLIFENACIN SUCCINATE 5 MG TAB PO SCH (09:33)
[2018-07-02] MEDS: METOPROLOL TARTRATE 25 MG TAB PO SCH ×2 (09:33→17:00)
[2018-07-02] MEDS: PANTOPRAZOLE SOD 40 MG TABEC PO SCH ×2 (09:33→17:42)
--- NOTE | 2018-07-02 11:20 | NUR ---
CALL PLACED TO MD REGARDING ABNORMAL LAB RESULT, AWAITING CALL BACK
--- NOTE | 2018-07-02 13:17 | NUR ---
CALL BACK RECEIVED FROM , NOTIFIED OF ABNORMAL LAB RESULT, NO NEW ORDER RECEIVED.
--- NOTE | 2018-07-02 15:49 | NUR ---
PATIENT SITTING UP IN BED TALKING TO FAMILY MEMBER. BED IN LOWER POSITION, CALL LIGHT AT REACH.
[2018-07-02] MEDS: CEFTRIAXONE SOD 1 GM/NS 50 ML 50 ML IV SCH (17:41)
[2018-07-02] MEDS: AZITHROMYCIN 500MG/NS 250 ML 250 ML IV SCH (18:10)
--- NOTE | 2018-07-02 18:53 | NUR ---
patient recieved awake, alert, sitting up in chair. no c/o pain noted. pm assessment complete. noted at the bedside. patient instructed to call for assistance when needed.
--- NOTE | 2018-07-02 20:30 | NUR ---
patient assisted with shower. iv to right ac out. clean dry dressing applied to site. left ac #18 gauge remains. remains at patient side.
[2018-07-03] VITALS (7 sets, daily range): BP systolic 93–125; BP diastolic 53–74
[2018-07-03 06:03] LABS: BASOPHILS % 0.2 % (0.0-1.0); EOSINOPHILS # (AUTO) 0.1 (0.0-0.4); EOSINOPHILS % 1.1 % (0.0-6.0); HEMATOCRIT 32.4 % (38.2-49.6); HEMOGLOBIN 11.3 g/dL (14.0-18.0); LYMPHOCYTES # (AUTO) 0.7 (1.0-3.2); LYMPHOCYTES % 10.8 % (18.0-39.1); MEAN CORPUSCULAR HEMOGLOBIN 30.3 pg (28-32); MEAN CORPUSCULAR HGB CONC 34.9 g/dL (31-35); MEAN CORPUSCULAR VOLUME 86.9 fL (81-99); MONOCYTES # (AUTO) 0.7 (0.2-0.8); MONOCYTES % 10.3 % (4.4-11.3); NEUTROPHILS # (AUTO) 4.9 (2.1-6.9); NEUTROPHILS % 77.3 % (38.7-80.0); PLATELET COUNT 113 x10e3/uL (140-360); RED BLOOD COUNT 3.73 x10e6/uL (4.3-5.7); RED CELL DISTRIBUTION WIDTH 12.5 % (11.7-14.4)
[2018-07-03 06:28] LABS: ANION GAP 13.4 mmol/L (8-16); CALCIUM 8.2 mg/dL (8.4-10.2); CREATININE, SERUM 1.23 mg/dL (0.72-1.25); POTASSIUM 3.4 mmol/L (3.5-5.1)
--- NOTE | 2018-07-03 06:38 | NUR ---
here to see patient. made aware of 3.4 k+ level. kcl 40 meq po ordered x 1.
--- NOTE | 2018-07-03 07:10 | NUR ---
PATIENT IN BED RESTING WITH EYES CLOSED, NO RESPIRATORY DISTRESS OBSERVED. BED IN LOWER POSITION AND LOCKED, CALL LIGHT AT REACH.
[2018-07-03] MEDS ORDERED: POTASSIUM CHLORIDE 20 MEQ TAB CR PO NR (07:15)
[2018-07-03 07:22] LABS: ANISOCYTOSIS SLIGHT; BAND NEUTROPHILS % (MANUAL) 1 %; EOSINOPHILS % (MANUAL) 1 % (0-7); HYPOCHROMASIA SLIGHT; LYMPHOCYTES % (MANUAL) 11 % (19-48); MONOCYTES % (MANUAL) 10 % (3.4-9.0); NEUTROPHILS % (MANUAL) 75 % (40-74); PLATELET ESTIMATE SLIGHTLY DECREASED; PLATELET MORPHOLOGY COMMENT FEW GIANT; RBC MORPHOLOGY COMMENT NORMAL
[2018-07-03] MEDS: INSULIN GLARGINE 100 UNITS/ML VIAL SQ SCH ×2 (07:30→16:30)
[2018-07-03] MEDS: INSULIN LISPRO 100 UNIT/1 ML 3ML VIAL SQ SCH ×4 (07:30→21:00)
--- NOTE | 2018-07-03 07:40 | Progress Note ---
DATE: SUBJECTIVE: Cjklaol-qlyu-chn male comes in with septic encephalopathy. Currently the patient's mental status is stable. He is alert and oriented x3, talkative. No complaints. Slept well. PHYSICAL EXAMINATION: VITAL SIGNS: Temperature is 97.5, pulse of 66, respiration of 17, blood pressure is 93/53, pulse oximetry of 94% on room air. HEENT: Normocephalic, atraumatic. Pupils are reactive to light and accommodation. CVS: S1 and S2 normal. Regular rate and rhythm. ABDOMEN: Nontender, nondistended. EXTREMITIES: No clubbing, no cyanosis, and/or no edema. Left extremity with orthopedic deformities. LABORATORY VALUES: Today's white count is 6.29, hemoglobin of 11.3, hematocrit of 32.4, left shift has gone, neutrophil count is 77.3. Chemistries show a sodium of 137, potassium was 3.4, BUN was 29, creatinine of 1.23, and glucose is 182.3, calcium was 8.2. Toxicology, pending vancomycin trough. Coags are also normal. ASSESSMENT: 1. Septic encephalopathy. 2. Acute sepsis secondary to infection. 3. Hypertension. 4. Coronary artery disease. 5. History of congestive heart failure, chronic, systolic. 6. History of hyperlipidemia. 7. Debility. PLAN: To continue with physical therapy. Microbiology shows Staph aureus on growth, still pending sensitivity. Will continue with vancomycin, Rocephin, and Zithromax at this time. Further recommendations per clinical course. Will continue to monitor the patient as soon as the sensitivity is available. Patient may be discharged to home depending on the sensitivity. Will continue all of his home medications and his cardiovascular examination. Further recommendations per clinical course. Job#: [id number]
[2018-07-03] MEDS: VANCOMYCIN 1GM/NS 250 ML 250 ML IV SCH (07:50)
[2018-07-03] MEDS: FAMOTIDINE 20 MG TAB PO SCH ×2 (07:51→16:30)
--- NOTE | 2018-07-03 08:35 | NUR ---
IMM LETTER GIVEN WITH EXPLANATION. ORIGINAL SIGNED AND PLACED IN CHART; COPY OF ORIGINAL DOCUMENT GIVEN TO PATIENT AT BEDSIDE AND PLACED IN CARE TRANSITION FOLDER. CONTACT INFORMATION GIVEN TO PATIENT FOR ANY NEEDS OR CONCERNS. NO FURTHER QUESTIONS. Addendum: 07/03/18 at 0839 by Amairani Govea CM LATE ENTRY
[2018-07-03] MEDS: ACETAMINOPHEN 325 MG TAB PO PRN (08:49)
[2018-07-03] MEDS: AMIODARONE HCL 200 MG TAB PO SCH (09:09)
[2018-07-03] MEDS: FUROSEMIDE 40 MG TAB PO SCH (09:09)
[2018-07-03] MEDS: BUMETANIDE 1 MG TAB PO SCH (09:09)
[2018-07-03] MEDS: SPIRONOLACTONE 25 MG TAB PO SCH ×2 (09:09→17:53)
[2018-07-03] MEDS: METOPROLOL TARTRATE 25 MG TAB PO SCH ×2 (09:09→17:53)
[2018-07-03] MEDS: FERROUS SULFATE 325 MG TAB PO SCH (09:09)
[2018-07-03] MEDS: ATORVASTATIN 40 MG TAB PO SCH (09:09)
[2018-07-03] MEDS: APIXAB 2.5 MG TABLET PO SCH (09:09)
[2018-07-03] MEDS: PANTOPRAZOLE SOD 40 MG TABEC PO SCH ×2 (09:10→17:53)
[2018-07-03] MEDS: SOLIFENACIN SUCCINATE 5 MG TAB PO SCH (09:10)
--- NOTE | 2018-07-03 13:49 | NUR ---
PATIENT AMBULATING IN HALLWAY WITH PHYSICAL THERAPY, NO COMPLAIN VOICED. WILL CONTINUE TO MONITOR.
[2018-07-03] MEDS: CEFTRIAXONE SOD 1 GM/NS 50 ML 50 ML IV SCH (17:54)
[2018-07-03] MEDS: AZITHROMYCIN 500MG/NS 250 ML 250 ML IV SCH (18:21)
[2018-07-03] MEDS ORDERED: POTASSIUM CHLORIDE 20 MEQ TAB CR PO ONE (18:50)
--- NOTE | 2018-07-03 19:10 | NUR ---
patient recieved awake, alert, lying quietly in bed. no c/o pain noted. patient medicated with kcl 40 meq po for k+ 3.4 as ordered. pm assessment complete. remains at the bedside. patient/ instructed to call for assistance when needed.
[2018-07-04] VITALS: BP 121/61
[2018-07-04 04:20] VITALS: BP 102/53
--- NOTE | 2018-07-04 05:45 | NUR ---
new iv #22 gauge placed to left hand x 1 stick. iv to left ac d/c' due to redness at site.
[2018-07-04 05:53] LABS: ANION GAP 13.1 mmol/L (8-16); CALCIUM 8.4 mg/dL (8.4-10.2); CREATININE, SERUM 1.3 mg/dL (0.72-1.25); POTASSIUM 4.1 mmol/L (3.5-5.1)
[2018-07-04] MEDS: VANCOMYCIN 1GM/NS 250 ML 250 ML IV SCH (05:54)
[2018-07-04 07:25] VITALS: BP 115/68
--- NOTE | 2018-07-04 07:25 | NUR ---
pt up in bed no ditress noted ,denies pain,tele in place nsr
[2018-07-04] MEDS: INSULIN LISPRO 100 UNIT/1 ML 3ML VIAL SQ SCH (08:00)
[2018-07-04] MEDS: INSULIN GLARGINE 100 UNITS/ML VIAL SQ SCH (08:00)
[2018-07-04 08:19] VITALS: BP 115/68
[2018-07-04] MEDS: APIXAB 2.5 MG TABLET PO SCH (08:41)
[2018-07-04] MEDS: SPIRONOLACTONE 25 MG TAB PO SCH (08:41)
[2018-07-04] MEDS: FERROUS SULFATE 325 MG TAB PO SCH (08:41)
[2018-07-04] MEDS: BUMETANIDE 1 MG TAB PO SCH (08:41)
[2018-07-04] MEDS: AMIODARONE HCL 200 MG TAB PO SCH (08:41)
[2018-07-04] MEDS: ATORVASTATIN 40 MG TAB PO SCH (08:41)
[2018-07-04] MEDS: FAMOTIDINE 20 MG TAB PO SCH (08:41)
[2018-07-04] MEDS: FUROSEMIDE 40 MG TAB PO SCH (08:41)
[2018-07-04] MEDS: SOLIFENACIN SUCCINATE 5 MG TAB PO SCH (08:42)
[2018-07-04] MEDS: PANTOPRAZOLE SOD 40 MG TABEC PO SCH (08:42)
[2018-07-04] MEDS: METOPROLOL TARTRATE 25 MG TAB PO SCH (08:42)
[2018-07-04] MEDS ORDERED: LEVAQUIN500 MG PO (09:17)
--- NOTE | 2018-07-04 09:39 | NUR ---
DISCHARGED INSTRUCTIONS GIVEN COPY ON CHART AWAITING RIDE
--- NOTE | 2018-07-04 10:43 | Progress Note ---
DATE: SUBJECTIVE: The patient is a 68-year-old male. The patient is currently afebrile, doing well, no temperature changes. The patient is walking and eating well. No chest pain, shortness of breath, nausea, vomiting, or diarrhea. OBJECTIVE: VITAL SIGNS: Temperature is 97.3, pulse is 66, respirations are 17, blood pressure is 102/53, and pulse oximetry 98%. HEENT: Normocephalic and atraumatic. Pupils are reactive to light and accommodation. CVS: S1 and S2 normal. Regular rate and rhythm. ABDOMEN: Nontender and nondistended. EXTREMITIES: No clubbing, no cyanosis, and no edema. LABORATORY VALUES: Sodium is 134 today, potassium is 4.1, BUN of 28, and creatinine is 1.30, which is baseline for him. Glucose has been trending a little high. Hematology; white count is 6.29, hemoglobin is 11.3, hematocrit 32.4, neutrophil count is normalized, no left shift present. Toxicology, vancomycin is 7.6. Coags are within normal limits. ASSESSMENT: 1. Septic encephalopathy. 2. Sepsis. 3. Hypertension. 4. Coronary artery disease. 5. Hyperlipidemia. 6. Uncontrolled diabetes mellitus. PLAN: 1. Plan is to send him home on Levaquin. The patient's blood culture grew Staphylococcus aureus, sensitive to vancomycin and also sensitive to Levaquin. The patient will be sent home on Levaquin 500 mg for 10 days. Adequate hydration has been ordered for the patient. 2. Further recommendations and clinical course, we will continue seeing the patient in the outpatient setting. The patient's acute kidney injury has also stabilized to his chronic level. MD DIOGENES Donnelly/MODL /[id number]
--- NOTE | 2018-07-04 11:00 | NUR ---
PT DISCHARGED HOME IV DCD WITHOUT REDNESS OR SELLING,PRESCRIPTIONS AND INSTRUCTION GIVEN COPY ON CHART,TRANSPORTED TO AUTO VIA W/C
== END 2018-07-04 10:00 | disposition home or self-care (01) | DRG 871 ==
LOC: ER 12:45 → ERHOLD 17:25 → MED/SURG3 22:19
PROVIDERS: ADMIT Family Medicine; ATTEND Family Medicine
DX: A41.9 Sepsis, unspecified organism (principal); E11.00 Type 2 diabetes mellitus with hyperosmolarity without nonketotic hyperglycemic-hyperosmolar coma (NKHHC); G93.41 Metabolic encephalopathy; I50.22 Chronic systolic (congestive) heart failure; N17.9 Acute kidney failure, unspecified; I25.10 Atherosclerotic heart disease of native coronary artery without angina pectoris; Z95.1 Presence of aortocoronary bypass graft; I11.0 Hypertensive heart disease with heart failure; E86.0 Dehydration; E11.65 Type 2 diabetes mellitus with hyperglycemia; K21.0 Gastro-esophageal reflux disease with esophagitis; Z79.01 Long term (current) use of anticoagulants; Z95.2 Presence of prosthetic heart valve; R53.81 Other malaise; Z79.52 Long term (current) use of systemic steroids; Z87.891 Personal history of nicotine dependence
CPT/HCPCS: 36415; 36600; 70450; 71045; 71046; 80048; 80053; 80162; 80202; 81001; 82140; 82550; 82553; 82805; 82948; 83518; 83605; 83735; 83880; 84484; 85025; 85610; 85730; 87040; 87070; 87071; 87086; 87186; 87205; 87400; 93005; 96361; 99285; J0456; J0696; J1815; J1940; J3370; J7030

== ENCOUNTER 2018-07-10 08:15 | Inpatient (IN) | payer MEDICARE, OTHER ==
[~2018-07-10] VITALS: Ht 175.3 cm; Wt 99.3 kg
[~2018-07-10 08:15] MED LIST changes: +BENZONATATE100 MG PO; +ELIQUS PO; +FERROUS SULFAT325 MG PO; +LASIX40 MG PO; +LEVAQUIN500 MG PO; +LIPITOR20 MG PO; +PREDNISONE10 MG PO
--- OUTSIDE RECORDS SUMMARY | 2018-07-10 08:18 | XMS REPORT | Clinical Summary ---
Author Author [facility] Address Unknown Phone Unavailable Care Team Providers Care Steamfitter Name Role Phone Thom Finn MD PCP Allergies No Known Allergies Medications End Date Status Medication Sig Dispensed Refills Start Date Active aspirin (ECOTRIN) 81 MG Take 81 mg by 0 enteric coated tablet mouth daily. 07/09/2017 ergocalciferol (VITAMIN Take 1 4 capsule 0 D2) 50,000 unit capsule capsule 8 (50,000 Units total) by mouth once a week for 30 days. Active Problems Problem Noted [...] 1958 COLON CANCER SCREENING 1998 SHINGLES VACCINES (#1) 1998 65+ PNEUMOCOCCAL VACCINE 2013 (1 of 2 - PCV13) PNEUMOCOCCAL 2013 POLYSACCHARIDE VACCINE AGE 65 AND OVER INFLUENZA VACCINE 12/13/2017 Implants Device Identifier Shelf Expiration Date Model / Serial / Lot Implanted Type Area Manufactur er 6500F / / Lead Pace David Mycrdl Unipol Tmpry Cardiovasc N/A: N/A [employer] Streamline - [id number] ular [place] - Implanted: 05/03/2017 (Quantity not Implants CARDIAC on file) SRGRY 06/23/2020 E100 23A 00 / [id number] / [id number] Valve Aortc Stntd Tiss Annls W/ Cardiovasc N/A: N/A ST TISHA Linx Ac Tech 23mm Epic - [id number] ular STRUCTURAL Implanted: 05/03/2017 (Quantity not Implants HEART on file) 6500F / / Lead Pace David Mycrdl Unipol Tmpry Cardiovasc N/A: N/A [employer] Streamline - [id number] ular [place] - Implanted: 05/03/2017 (Quantity not Implants CARDIAC on file) SRGRY 6500F / / Lead Pace David Mycrdl Unipol Tmpry Cardiovasc N/A: N/A [employer] Streamline - [id number] ular [place] - Implanted: 05/03/2017 (Quantity not Implants CARDIAC on file) SRGRY [id number] / / Clip Ligtng Weck Hemoclip Plus W/ Medical N/A: N/A TELEFLEX Tape Ti Lg - [id number] Clips for MEDICAL Implanted: 05/03/2017 (Quantity not Internal on file) Use [id number] / / Clip Ligtng Weck Hemoclip Plus W/ Medical N/A: N/A TELEFLEX Tape Ti Med - [id number] Clips for MEDICAL Implanted: 05/03/2017 (Quantity not Internal on file) Use 03/11/2022 [id number] / / [id number] [place] Perph Vasclr Ptfe 1.2x10cm Vascular N/A: N/A BARD 1.65mm - [id number] Graft PERIPHERAL Implanted: 05/03/2017 (Quantity not VASCULAR on file) 01/09/2022 [id number] / / [id number] [place] Perph Vasclr Ptfe 1.2x10cm Vascular N/A: N/A BARD 1.65mm - [id number] Graft PERIPHERAL Implanted: 05/03/2017 (Quantity not VASCULAR on file) 10/09/2021 [id number] / / [id number] [facility] Vasclr Ptfe 1.2x10cm Vascular N/A: N/A BARD 1.65mm - [id number] Graft PERIPHERAL Implanted: 05/03/2017 (Quantity not VASCULAR on file) Procedures Comments Procedure Name Priority Date/Time Associated Diagnosis TRANSFUSE PLATELETS Routine 01/17/2018 5:46 PM CDT after 07/09/2017 Results * Transfuse platelets (01/17/2018 5:46 PM CDT) after 07/09/2017 Insurance Payer Benefit Subscriber ID Type Phone Address Plan / Group MEDICARE MEDICARE xxxxxxxxxx Medicare [place], [place] PART A AND B BANKERS LIFE AND CASUALTY BANKERS xxxxxxxxx Commercial LIFE AND CASUALTY Advance Directives Patient has advance care planning documents on file. For more information, mason saravia contact: Farhat Scott [address] [place] [address]
--- NOTE | 2018-07-10 08:25 | NUR ---
DR. MCKAY AT BEDSIDE FOR PATIENT EVAL AT THIS TIME.
[2018-07-10] MEDS ORDERED: SODIUM CHLORIDE 0.9% 1000ML 1,000 ML IV STA (08:30)
--- NOTE | 2018-07-10 08:40 | NUR ---
RADIOLOGY AT BEDSIDE FOR PORTABLE CXR AT THIS TIME/
[2018-07-10 08:55] LABS: BASOPHILS % 0.2 % (0.0-1.0); HEMATOCRIT 35.9 % (38.2-49.6); HEMOGLOBIN 12.7 g/dL (14.0-18.0); LYMPHOCYTES # (AUTO) 0.2 (1.0-3.2); LYMPHOCYTES % 0.9 % (18.0-39.1); MEAN CORPUSCULAR HEMOGLOBIN 30.8 pg (28-32); MEAN CORPUSCULAR HGB CONC 35.4 g/dL (31-35); MEAN CORPUSCULAR VOLUME 87.1 fL (81-99); MONOCYTES # (AUTO) 0.9 (0.2-0.8); NEUTROPHILS # (AUTO) 22.2 (2.1-6.9); NEUTROPHILS % 94.3 % (38.7-80.0); PLATELET COUNT 241 x10e3/uL (140-360); RED BLOOD COUNT 4.12 x10e6/uL (4.3-5.7)
[2018-07-10 09:01] LABS: INR 1.05; PROTHROMBIN TIME 14.6 seconds (11.9-14.5)
[2018-07-10 09:02] LABS: PARTIAL THROMBOPLASTIN TIME 33.6 seconds (23.8-35.5)
--- NOTE | 2018-07-10 09:04 | Diagnostic Imaging Report ---
Examination: Single AP view of the chest. COMPARISON: 06/30/2018 INDICATION: Weakness, altered mental status DISCUSSION: The lungs are well-inflated. Interval resolution of interstitial opacities relative to 06/30/2018. No new consolidation or effusion. Stable cardiomediastinal contour with median sternotomy wires and postsurgical mediastinal changes. No acute osseous abnormality. IMPRESSION: Interval resolution of interstitial edema relative to 06/30/2018. Signed by: Dr. Kofi Faust M.D. on 07/10/2018 9:00 AM
[2018-07-10 09:10] LABS: ALBUMIN/GLOBULIN RATIO 0.8 (0.8-2.0); ANION GAP 16.1 mmol/L (8-16); CALCIUM 9.5 mg/dL (8.4-10.2); CREATININE, SERUM 1.97 mg/dL (0.72-1.25); POTASSIUM 4.1 mmol/L (3.5-5.1)
[2018-07-10 09:37] LABS: CREATINE KINASE MB 1.5 ng/mL (0-4.3)
[2018-07-10] MEDS: VANCOMYCIN 1GM/NS 250 ML 250 ML IV SCH ×2 (10:40→20:43)
[2018-07-10 10:41] LABS: CLARITY,URINE SL CLOUDY (CLEAR); COLOR,URINE YELLOW (YELLOW)
[2018-07-10 10:42] LABS: BILIRUBIN,URINE NEGATIVE (NEGATIVE); KETONES,URINE 1+ (NEGATIVE); LEUKOCYTE ESTERASE ,URINE NEGATIVE (NEGATIVE); NITRITE,URINE NEGATIVE (NEGATIVE); PROTEIN,URINE DIPSTICK 1+ (NEGATIVE); URINE UROBILINOGEN 0.2 mg/dL (0.2 - 1)
[2018-07-10 10:53] LABS: EPITHELIAL CELLS,URINE RARE /LPF
[2018-07-10] MEDS ORDERED: ONDANSETRON HCL INJ 2MG/ML 2ML 2 MG/ML VIAL IV PRN (11:00)
[2018-07-10] MEDS ORDERED: DEXTROSE 50% SYRINGE 50 ML IV PRN (11:00)
--- OUTSIDE RECORDS SUMMARY | 2018-07-10 11:06 | XMS REPORT | Clinical Summary ---
Author Author [facility] Address Unknown Phone Unavailable Care Team Providers Care Welfare Administrator Name Role Phone Thom Finn MD PCP [...] Tmpry Cardiovasc N/A: N/A [employer] Streamline - [id number] ular [place] - Implanted: 05/03/2017 (Quantity not Implants CARDIAC on file) SRGRY 06/23/2020 E100 23A 00 / [id number] / [id number] Valve Aortc Stntd Tiss Annls W/ Cardiovasc N/A: N/A ST TISHA Linx Ac Tech 23mm Epic - [id number] ular STRUCTURAL Implanted: 05/03/2017 (Quantity not Implants HEART on file) 6500F / / Lead Pace David Mycrdl Unipol Tmpry Cardiovasc N/A: N/A [employer] Streamline - [id number] ular [place] - Implanted: 05/03/2017 (Quantity not Implants CARDIAC on file) SRGRY 6500F / / Lead Pace David Mycrdl Unipol Tmpry Cardiovasc N/A: N/A [employer] Streamline - [id number] ular [place] - Implanted: 05/03/2017 (Quantity not Implants CARDIAC on file) SRGRY [id number] / / Clip Ligtng Weck Hemoclip Plus W/ Medical N/A: N/A TELEFLEX Tape Ti Lg - [id number] Clips for MEDICAL Implanted: 05/03/2017 (Quantity not Internal on file) Use [id number] / / Clip Ligtng Weck Hemoclip Plus W/ Medical N/A: N/A TELEFLEX Tape Ti Med - [id number] Clips for MEDICAL Implanted: 05/03/2017 (Quantity not Internal on file) Use 03/11/2022 [id number] / / [id number] [place] Perph Vasclr Ptfe 1.2x10cm Vascular N/A: N/A BARD 1.65mm - [id number] Graft PERIPHERAL Implanted: 05/03/2017 (Quantity not VASCULAR on file) 01/09/2022 [id number] / / [id number] [place] Perph Vasclr Ptfe 1.2x10cm Vascular N/A: N/A BARD 1.65mm - [id number] Graft PERIPHERAL Implanted: 05/03/2017 (Quantity not VASCULAR on file) 10/09/2021 [id number] / / [id number] [facility] [facility] Vasclr Ptfe 1.2x10cm Vascular N/A: N/A BARD 1.65mm - [id number] Graft PERIPHERAL Implanted: 05/03/2017 (Quantity not VASCULAR on file) Procedures Comments Procedure Name Priority Date/Time Associated Diagnosis TRANSFUSE PLATELETS Routine 01/17/2018 5:46 PM CDT after 07/09/2017 Results * Transfuse platelets (01/17/2018 5:46 PM CDT) after 07/09/2017 Insurance Payer Benefit Subscriber ID Type Phone Address Plan / Group MEDICARE MEDICARE xxxxxxxxxx Medicare [place], [place] PART A AND B BANKERS LIFE AND CASUALTY BANKERS xxxxxxxxx Commercial LIFE AND CASUALTY Advance Directives Patient has advance care planning documents on file. For more information, mason saravia contact: Farhat Scott [address] [place] [address]
[2018-07-10] MEDS: INSULIN LISPRO 100 UNIT/1 ML 3ML VIAL SQ SCH ×3 (11:16→20:44)
[2018-07-10] MEDS: SODIUM CHLORIDE 0.9% 1000ML 1,000 ML IV SCH ×2 (11:18→12:15)
[2018-07-10] MEDS: CEFEPIME 1GM/NS 0.9% 50 ML 50 ML IV SCH ×2 (11:20→21:54)
[2018-07-10 15:15] VITALS: BP 172/67
--- NOTE | 2018-07-10 15:30 | NUR ---
RECD PT FROM ER VIA BED,AAOX3,O2 2L NC IN PLACE ,DENIES PAIN,HOB ELEVATED,CALL IVORY IN REACH,IV INFUSING TO RT AC 20 GAUGE,SKIN INTACT,
[2018-07-10 15:50] VITALS: BP 172/67
--- NOTE | 2018-07-10 18:06 | NUR ---
PT UP IN BED DENIES PAIN,O2 2L NC IN PLACE.
--- NOTE | 2018-07-10 19:30 | NUR ---
patient received awake, alert, lying quietly in bed. no c/o pain noted. ivf continue to infuse without difficulty. pm assessment complete. noted at the bedside. bed alarm on for safety, side rails up x 3, call lan placed within reach. patient/ instructed to call for assistance when needed.
[2018-07-10 20:00] VITALS: BP 97/54
[2018-07-11] VITALS (9 sets, daily range): BP systolic 99–131; BP diastolic 51–65
[2018-07-11] MEDS: SODIUM CHLORIDE 0.9% 1000ML 1,000 ML IV SCH ×3 (00:29→18:54)
[2018-07-11] MEDS: CEFEPIME 1GM/NS 0.9% 50 ML 50 ML IV SCH ×3 (05:17→21:56)
[2018-07-11 06:38] LABS: BASOPHILS % 0.1 % (0.0-1.0); EOSINOPHILS % 0.1 % (0.0-6.0); HEMATOCRIT 27.3 % (38.2-49.6); HEMOGLOBIN 9.3 g/dL (14.0-18.0); LYMPHOCYTES # (AUTO) 0.5 (1.0-3.2); LYMPHOCYTES % 3.4 % (18.0-39.1); MEAN CORPUSCULAR HEMOGLOBIN 30.7 pg (28-32); MEAN CORPUSCULAR HGB CONC 34.1 g/dL (31-35); MEAN CORPUSCULAR VOLUME 90.1 fL (81-99); MONOCYTES % 6.9 % (4.4-11.3); NEUTROPHILS # (AUTO) 12.8 (2.1-6.9); NEUTROPHILS % 87.8 % (38.7-80.0); PLATELET COUNT 137 x10e3/uL (140-360); RED BLOOD COUNT 3.03 x10e6/uL (4.3-5.7); RED CELL DISTRIBUTION WIDTH 13.1 % (11.7-14.4)
[2018-07-11 07:03] LABS: ANION GAP 11.8 mmol/L (8-16); BLOOD UREA NITROGEN 25 mg/dL (7-26); BUN/CREATININE RATIO 22 (6-25); CALCIUM 7.9 mg/dL (8.4-10.2); CARBON DIOXIDE 20 mmol/L (22-29); CHLORIDE 107 mmol/L (98-107); CREATININE, SERUM 1.13 mg/dL (0.72-1.25); EST GLOMERULAR FILTRATION RATE > 60 ML/MIN (60-); GLUCOSE 202 mg/dL (74-118); POTASSIUM 3.8 mmol/L (3.5-5.1); SODIUM 135 mmol/L (136-145)
--- NOTE | 2018-07-11 07:13 | NUR ---
PATIENT IN BED WITH HEAD OF BED ELEVATED TALKING TO MD, NO COMPLAIN VOICED. ALL PERSONAL ITEMS CLOSED TO PATIENT, CALL LIGHT AT REACH.
[2018-07-11] MEDS: INSULIN LISPRO 100 UNIT/1 ML 3ML VIAL SQ SCH ×4 (07:30→20:45)
[2018-07-11] MEDS ORDERED: APIXABAN 2.5 MG PO SCH (09:00)
[2018-07-11] MEDS ORDERED: ATORVASTATIN 20 MG TAB PO SCH (09:00)
[2018-07-11] MEDS: VANCOMYCIN 1GM/NS 250 ML 250 ML IV SCH ×2 (09:17→21:26)
[2018-07-11] MEDS: FERROUS SULFATE 325 MG TAB PO SCH (09:17)
[2018-07-11] MEDS: AMIODARONE HCL 200 MG TAB PO SCH (09:17)
--- NOTE | 2018-07-11 10:50 | NUR ---
CASE MANAGEMENT INITIAL ASSESSMENT Director Of Radiology to bedside to discuss plan of care with patient/family. CM/SW role and care transitions discussed. Anticipated discharge plan discussed along with duration of care. CM/SW discussed patients right to make decisions in care. CM/SW work hours given. Patient lives: IN 1 STORY HOME W Admit/Transfer: ER Hospital/ER visits since last admit: ADMIT 06/30/2018. DC'D 07/04/2018 POA/Emergency contact: GAURAV / [phone] Current/Previous Home Health: NONE PCP/Follow-up Care: DR. BAUER Current/Previous DME: NONE Medications (referring to index hospitalization or the first time you were in the hospital) a. Were changes made in your medications when you were in the hospital on [date of index hospitalization]? Yes b. Did you understand the changes? Yes c. Were you able to obtain your new medications right away? Yes d. Were you able to take your medications like the doctor wanted you to? Yes e. Did the hospital give you an accurate, easy to understand list of medications when you left? 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 SIGNED BY . COPY TO CHART AND COPY TO PT. Goal for discharge: RETURN HOME CM/SW left business card at the bedside with contact information. Name and number was also written on the patients whiteboard. Patient verbalized understanding of discussion. CM will follow-up with ongoing discharge and transition of care needs.
--- NOTE | 2018-07-11 11:53 | NUR ---
PATIENT ASSISTED WITH BED BATH, LINENS CHANGED. BED IN LOWER POSITION, CALL LIGHT AT REACH.
--- NOTE | 2018-07-11 14:03 | History and Physical ---
HISTORY OF PRESENT ILLNESS: The patient is a 68-year-old male, who was recently discharged from the hospital status post sepsis on Levaquin after susceptibilities were obtained. The patient went home and was seen by me about two days prior to this admission. The patient was feeling well one week post admission, was not complaining of any fever or febrile illness or chest pain or shortness of breath, but yesterday, the patient came to the clinic with a febrile illness, the patient was having a fever of 101 and was slightly disoriented with some shortness of breath. The patient came in and was admitted for recurrence of sepsis. PAST MEDICAL HISTORY: History of coronary artery disease, history of paroxysmal atrial fibrillation, history of congestive heart failure, history of hypertension, history of incontinence, history of reflux esophagitis, and history of coronary artery disease status post CABG. MEDICATIONS: Medications at home are amiodarone 200 mg once a day, atorvastatin 80 mg once a day, Bumex 1 mg daily, Lasix 40 mg daily, metoprolol 25 mg daily and aldactone 25 mg daily. The patient also takes Eliquis 2.5 mg twice a day and VESIcare 5 mg daily. PAST SURGICAL HISTORY: History of CABG. REVIEW OF SYSTEMS: Negative for chest pain. Positive for some shortness of breath. No nausea, vomiting, or diarrhea. No cough and no congestion. Positive for changes in mental status. No nausea, vomiting, diarrhea and no constipation. No rectal bleeding. No hematochezia. No hematemesis either. No blurry vision. No diplopia. No paresthesias. No hyperesthesias. SOCIAL HISTORY: Lives with . No EtOH. No IV drug abuse. 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 ALLERGIES: NO KNOWN DRUG ALLERGIES NOTED. PHYSICAL EXAMINATION: GENERAL: The patient is alert and oriented right now. Better mental status and cognitive status than yesterday. VITAL SIGNS: T-max 100.5 yesterday at 1550, the patient's temperature today is 98.3, pulse of 78, respirations of 18, blood pressure is 99/61, pulse oximetry of 95% on 2 L of nasal cannula. HEENT: Normocephalic, atraumatic. Pupils are reactive to light and accommodation. CVS: S1, S2. Normal rate and rhythm, was tachycardic yesterday. ABDOMEN: Soft, nontender, nondistended. EXTREMITIES: No clubbing, no cyanosis, no edema. The patient's left extremities exhibit some orthopedic changes, status post surgeries. NEUROLOGIC: Alert and oriented at this time. Mood and affect are normal. Speech is normal. Cranial nerves are normal. No cerebellar and no motor or sensory deficits noted. IMAGING STUDIES: Chest x-ray shows interval resolution of interstitial edema related to 06/30/2018. LABORATORY VALUES: The patient's laboratory values show white count of 23,000, today's is pending; hemoglobin of 12.7; hematocrit of 35.9; platelet count is 241; neutrophil count 94.3. The patient's chemistries show a sodium of 131, potassium of 4.1, BUN of 36, creatinine of 1.97, glucose of 401, and total bilirubin was 1.8. Microbiology report shows gram-positive cocci in clusters and blood culture otherwise is pending. ASSESSMENT: 1. Gram-positive sepsis, source unknown at this time. 2. Recurrent sepsis. 3. Acute kidney injury. 4. Acute mental status changes. 5. Hypertension. 6. Hyperlipidemia. 7. Coronary artery disease. 8. Diabetes mellitus, uncontrolled. PLAN: Plan is to restart all his medications. The patient has been put on insulin sliding scale. We will start the patient also on some Lantus 8 units twice a day and continue to monitor. The patient's blood cultures will be followed. The patient's last blood culture showed Staphylococcus aureus sensitive to Levaquin and the patient was sent home on Levaquin. The patient's last blood culture also showed vancomycin sensitivity and also Maxipime sensitivity. The patient is currently on Maxipime and vancomycin. We will continue to monitor the patient and also vancomycin trough will be done every third dose. Further recommendations per clinical course. We will continue to monitor the patient and possibly do a CT of the abdomen in lieu of finding the source of sepsis. MD DIOGENES Donnelly/MODL /[id number]
--- NOTE | 2018-07-11 15:06 | NUR ---
CM SPOKE TO PATIENT AT BEDSIDE REGARDING IMM LETTER. IMM LETTER GIVEN WITH EXPLANATION BASED ON ANTICIPATED DISCHARGE DATE WITHIN 48 HOURS. ORIGINAL SIGNED BY PATIENT. COPY OF ORIGINAL PLACED IN CHART; COPY OF ORIGINAL DOCUMENT GIVEN TO PATIENT AT BEDSIDE AND PLACED IN CARE TRANSITION FOLDER. CM CONTACT INFORMATION GIVEN TO PATIENT FOR ANY NEEDS OR CONCERNS. PATIENT WITH NO FURTHER QUESTIONS.
--- NOTE | 2018-07-11 15:52 | NUR ---
PATIENT ASSISTED TO BED SIDE COMMODE AND BACK TO BED. HAD A LARGE BM, BED IN LOWER POSITION, CALL LIGHT AT REACH.
[2018-07-11] MEDS: APIXAB 2.5 MG TABLET PO SCH (17:33)
--- NOTE | 2018-07-11 19:05 | NUR ---
SHIFT REPORT RECEIVED BY DAY NURSE. PATIENT DENIES NEEDS AT THIS TIME. CALL LIGHT WITHIN REACH AND INSTRUCTED TO CALL FOR ASSISTANCE. PATIENT VERBALIZED UNDERSTANDING.
[2018-07-11] MEDS: ATORVASTATIN 20 MG TAB PO SCH (21:26)
[2018-07-12] VITALS (8 sets, daily range): BP systolic 118–140; BP diastolic 59–85
[2018-07-12] MEDS: SODIUM CHLORIDE 0.9% 1000ML 1,000 ML IV SCH ×2 (01:19→17:27)
[2018-07-12] MEDS: CEFEPIME 1GM/NS 0.9% 50 ML 50 ML IV SCH ×3 (05:07→22:09)
[2018-07-12 05:30] LABS: BASOPHILS % 0.2 % (0.0-1.0); EOSINOPHILS # (AUTO) 0.1 (0.0-0.4); EOSINOPHILS % 0.5 % (0.0-6.0); HEMATOCRIT 28.3 % (38.2-49.6); HEMOGLOBIN 9.5 g/dL (14.0-18.0); LYMPHOCYTES # (AUTO) 0.6 (1.0-3.2); LYMPHOCYTES % 4.6 % (18.0-39.1); MEAN CORPUSCULAR HEMOGLOBIN 30.2 pg (28-32); MEAN CORPUSCULAR HGB CONC 33.6 g/dL (31-35); MEAN CORPUSCULAR VOLUME 89.8 fL (81-99); MONOCYTES # (AUTO) 0.9 (0.2-0.8); MONOCYTES % 7.5 % (4.4-11.3); NEUTROPHILS # (AUTO) 10.4 (2.1-6.9); NEUTROPHILS % 86.3 % (38.7-80.0); PLATELET COUNT 131 x10e3/uL (140-360); RED BLOOD COUNT 3.15 x10e6/uL (4.3-5.7)
[2018-07-12 06:08] LABS: BLOOD UREA NITROGEN 25 mg/dL (7-26); BUN/CREATININE RATIO 25 (6-25); CARBON DIOXIDE 21 mmol/L (22-29); CHLORIDE 104 mmol/L (98-107); CREATININE, SERUM 1.02 mg/dL (0.72-1.25); EST GLOMERULAR FILTRATION RATE > 60 ML/MIN (60-); GLUCOSE 256 mg/dL (74-118); SODIUM 130 mmol/L (136-145)
[2018-07-12] MEDS ORDERED: DIATRIZOATE MEGL/DIATRIZOA SOD 30 ML BTL PO ONE (07:27)
[2018-07-12] MEDS: INSULIN LISPRO 100 UNIT/1 ML 3ML VIAL SQ SCH ×4 (07:30→21:50)
--- NOTE | 2018-07-12 08:06 | NUR ---
PATIENT IN BED RESTING WITH EYES CLOSED, NO RESPIRATORY DISTRESS OBSERVED. ALL PERSONAL ITEMS CLOSE TO PATIENT. BED IN LOWER POSITION, CALL LIGHT AT REACH.
[2018-07-12] MEDS: VANCOMYCIN 1GM/NS 250 ML 250 ML IV SCH ×2 (09:49→21:19)
[2018-07-12] MEDS: AMIODARONE HCL 200 MG TAB PO SCH (09:49)
[2018-07-12] MEDS: FERROUS SULFATE 325 MG TAB PO SCH (09:49)
[2018-07-12] MEDS ORDERED: SODIUM CHLORIDE 0.9% 50ML 50 ML ONE (09:55)
[2018-07-12] MEDS ORDERED: IOPAMIDOL 370 MG/ML 200 ML INFUS..BTL INJ ONE (09:55)
--- NOTE | 2018-07-12 10:07 | Diagnostic Imaging Report ---
EXAM: CT Abdomen and Pelvis WITH contrast INDICATION: Bowel incontinence. COMPARISON: None. TECHNIQUE: Abdomen and pelvis were scanned utilizing a multidetector helical scanner from the lung base to the pubic symphysis after administration of IV contrast. Coronal and sagittal reformations were obtained. Routine protocol was performed. Scan was performed when during portal venous phase. Dose modulation, iterative reconstruction, and/or weight based adjustment of the mA/kV was utilized to reduce the radiation dose to as low as reasonably achievable. IV CONTRAST: 100 cc of Isovue 370. ORAL CONTRAST: Gastrografin COMPLICATIONS: None RADIATION DOSE: Total DLP: 768.6 mGy*cm Estimated effective dose: (DLP x 0.015 x size factor) mSv CTDIvol has been reviewed. It is below the limits set by the Radiation Protocol Committee (RPC). FINDINGS: LINES and TUBES: None. LOWER THORAX: Motion artifact limits evaluation. Small bilateral pleural effusions. There is smooth intralobular septal thickening. Patchy dependent atelectasis. Coronary atherosclerosis. HEPATOBILIARY: Mild diffuse fatty liver. Subcentimeter right hepatic lobe hypodensity is too small to characterize, but likely represents a cyst. No evidence of focal lesion. No biliary ductal dilation. GALLBLADDER: Mild wall thickening of the gallbladder fundus. SPLEEN: No splenomegaly. PANCREAS: No focal masses or ductal dilatation. ADRENALS: Indeterminant left adrenal nodules measuring 1.9 cm (series 2, image 24; 33 HU) and 1.6 cm (image 29; 65 HU). KIDNEYS/URETERS: Kidneys enhance symmetrically. No evidence of hydronephrosis, solid mass, or stone. Left renal cyst. Subcentimeter right renal hypodensity is too small to characterize, but likely represents a cyst. GI TRACT: No evidence of wall thickening or distension. Appendix is normal. PELVIC ORGANS/BLADDER: Unremarkable. LYMPH NODES: No lymphadenopathy. VESSELS: There are moderate to extensive atherosclerotic calcifications in the aorta and branch vessels. PERITONEUM / RETROPERITONEUM: No free air. Small amount of free fluid in the pelvis. BONES AND SOFT TISSUES: No acute osseous findings. No suspicious lytic or blastic lesions. Status post median sternotomy. CONCLUSION: Small volume ascites within the pelvis. Mild fatty liver. Small bilateral pleural effusions with findings of pulmonary interstitial edema at the lung bases. Indeterminant left adrenal nodules. Adrenal protocol CT or MRI is suggested for further evaluation. Mild wall thickening within the gallbladder fundus, which could represent adenomyomatosis, stone, or polyp. Right upper quadrant abdominal ultrasound is suggested for further evaluation. Signed by: Dr. Kevon Hitchcock MD on 07/12/2018 10:04 AM
--- NOTE | 2018-07-12 10:37 | Progress Note ---
DATE: SUBJECTIVE: The patient had come in with sepsis and Staphylococcus aureus has been identified. The patient is currently afebrile, feeling better, eating, fluids running at 125 mL an hour, and kidney functions have normalized. OBJECTIVE: VITAL SIGNS: Temperature is 99.4, T-max is 99.7, pulse of 84, respiration of 20, blood pressure is 132/60, pulse ox of 92% on room air. HEENT: Normocephalic, atraumatic. Pupils are reactive to light and accommodation. CVS: S1, S2 normal. Regular rate and rhythm. ABDOMEN: Slight suprapubic tenderness and also left lower quadrant tenderness. EXTREMITIES: No clubbing, no cyanosis, no edema. The patient has a midline scar. INTEGUMENTARY SYSTEM: Normal. LABORATORY VALUES: The patient's white count is 12,000, down from 23,000, hemoglobin of 9.5, hematocrit of 28.3, platelet count is 131, neutrophil count is still elevated at 10.4. The patient's chemistries show sodium of 130, potassium of 4.0, BUN of 25, creatinine of 1.02. Glucose is running high at 256. MEDICATIONS: The patient is on cefepime, atorvastatin, vancomycin, insulin protocol, apixaban, Eliquis at 2.5 mg twice a day, ferrous sulfate 325 mg, amiodarone 200 mg, and ondansetron 4 mg as needed. The patient's other reports include an echocardiogram, which shows LVH, moderate MR, and aortic valve replacement as noted. ASSESSMENT: 1. Sepsis, gram-positive cocci. The patient is currently doing better. Fluid resuscitation has been done and the patient is on IV antibiotics. The patient is on vancomycin and cefepime. 2. Hypertension, resolved. We will restart his hypertensive medications. 3. History of coronary artery disease status post coronary artery bypass graft with left ventricular hypertrophy. Restart medications. 4. History of atrial fibrillation and also history of coronary artery bypass graft. Continue with his apixaban and also his amiodarone. Further recommendation per clinical course. PLAN: 1. Plan is to cut his fluids back to TKO. 2. Restart his antihypertensive medications and also order physical therapy for rehabilitation. Further recommendation per clinical course. We will continue to monitor the patient. The patient also has a CT scan of the abdomen ordered without contrast to rule out any abdominal pathology leading on to the constant septic sepsis. MD DIOGENES Donnelly/MODL /[id number]
[2018-07-12] MEDS ORDERED: ALBUTEROL/IPRATROPIUM 3 ML NEB NEB PRN (11:15)
--- NOTE | 2018-07-12 12:36 | NUR ---
PATIENT ASSISTED WITH DIAPER CHANGE. REPOSITIONED IN BED. CALL LIGHT AT REACH.
[2018-07-12] MEDS: APIXAB 2.5 MG TABLET PO SCH (17:27)
--- NOTE | 2018-07-12 19:00 | NUR ---
SHIFT REPORT RECEIVED BY DAY NURSE. PATIENT DENIES NEEDS AT THIS TIME. CALL LIGHT WITHIN REACH AND INSTRUCTED TO CALL FOR ASSISTANCE. PATIENT VERBALIZED UNDERSTANDING.
--- NOTE | 2018-07-12 19:08 | NUR ---
utrition Screen Note RD Recommendation for Physician: -Continue ADA diet as ordered -RD provided diabetic diet education on 07/12 Plan of Care: RD following, monitoring for tolerance and adequacy, diet education Nutrition reason for involvement: Diagnosis Primary Diagnose(s): sepsis PMH: HTN, CAD, Afib, DM Ht: 69in Wt: 219lb BMI: 32.3kg/m2 IBW: 160lb RD Assessment: (07/12) Chart reviewed. Labs and meds reviewed. 68yo M, who was admitted for sepsis. BG 200-300+. 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 Pt denied chewing/swallowing problems and nausea/vomiting. RN recorded 50-100% meal intake since admission. RD provided diet education per request. Will continue to monitor and follow. Current Diet: ADA diet Malnutrition Evaluation (date of eval) The patient does not meet criteria for a specified degree of malnutrition at this time. Will re-evaluate at follow-up as appropriate. Diet Education Needs Assessment: Diet education indicated, pt and were agreeable with plan. Learner(s): pt and Time spent: 20mins Barriers: No barriers identified. Cultural/Language Modifications: No cultural/language modifications noted. Pt and speak Burmese. Readiness: Acceptance Method: Handouts, explanation Topics: Carbohydrate counting handouts, Reading the nutrition label, meal planning tips, exercise tips, servings/portion sizes Understanding/Compliance: Expect good understanding/compliance from pt. Will benefit from reinforcement. All questions have been answered. Nutrition Care Level: low Signed: Vicki Mckeon, MS, RD, LD
[2018-07-12] MEDS: ATORVASTATIN 20 MG TAB PO SCH (21:19)
[2018-07-13] VITALS (7 sets, daily range): BP systolic 118–138; BP diastolic 58–68
[2018-07-13] MEDS: GUAIFENESIN 200 MG/10 ML UDC PO PRN ×2 (01:07→15:55)
[2018-07-13 05:40] LABS: BASOPHILS % 0.2 % (0.0-1.0); EOSINOPHILS # (AUTO) 0.1 (0.0-0.4); EOSINOPHILS % 0.7 % (0.0-6.0); HEMATOCRIT 27.9 % (38.2-49.6); HEMOGLOBIN 9.5 g/dL (14.0-18.0); LYMPHOCYTES # (AUTO) 0.6 (1.0-3.2); LYMPHOCYTES % 6.9 % (18.0-39.1); MEAN CORPUSCULAR HEMOGLOBIN 30.3 pg (28-32); MEAN CORPUSCULAR HGB CONC 34.1 g/dL (31-35); MEAN CORPUSCULAR VOLUME 88.9 fL (81-99); MONOCYTES # (AUTO) 0.7 (0.2-0.8); MONOCYTES % 7.6 % (4.4-11.3); NEUTROPHILS # (AUTO) 7.6 (2.1-6.9); NEUTROPHILS % 83.8 % (38.7-80.0); PLATELET COUNT 134 x10e3/uL (140-360); RED BLOOD COUNT 3.14 x10e6/uL (4.3-5.7)
[2018-07-13 05:59] LABS: ANION GAP 6.9 mmol/L (8-16); BLOOD UREA NITROGEN 16 mg/dL (7-26); BUN/CREATININE RATIO 18 (6-25); CARBON DIOXIDE 24 mmol/L (22-29); CHLORIDE 105 mmol/L (98-107); CREATININE, SERUM 0.89 mg/dL (0.72-1.25); EST GLOMERULAR FILTRATION RATE > 60 ML/MIN (60-); GLUCOSE 200 mg/dL (74-118); POTASSIUM 3.9 mmol/L (3.5-5.1); SODIUM 132 mmol/L (136-145)
[2018-07-13] MEDS: CEFEPIME 1GM/NS 0.9% 50 ML 50 ML IV SCH ×3 (06:17→22:28)
[2018-07-13] MEDS: INSULIN LISPRO 100 UNIT/1 ML 3ML VIAL SQ SCH ×4 (08:00→21:08)
[2018-07-13] MEDS: FERROUS SULFATE 325 MG TAB PO SCH (08:35)
[2018-07-13] MEDS: AMIODARONE HCL 200 MG TAB PO SCH (08:35)
[2018-07-13] MEDS: VANCOMYCIN 1GM/NS 250 ML 250 ML IV SCH ×2 (09:17→21:07)
--- NOTE | 2018-07-13 10:32 | Progress Note ---
DATE: SUBJECTIVE: The patient is here for sepsis. The patient is currently afebrile, feeling better, but still complains of some abdominal pain, complains of cough and congestion. OBJECTIVE: VITAL SIGNS: Temperature is 97.5, T-max is 100.0 on 07/12/2018 at 2141 hours. The patient's blood pressure 118/64, pulse oximetry 97%. HEENT: Normocephalic and atraumatic. Pupils are reactive to light and accommodation. CVS: S1 and S2 are normal. Regular rate and rhythm. ABDOMEN: Tender in the right upper quadrant. EXTREMITIES: No clubbing. No cyanosis. No edema. LABORATORY VALUES: Today's white count is 9.03, down from 12, still has a left shift, 83.8. The patient's chemistry; sodium of 132, potassium of 3.9, BUN of 16, creatinine 0.89, and glucose 190. IMAGING RESULTS: Abdominal CT was done yesterday with contrast, showed mild fatty liver, small volume ascites in the pelvis, small bilateral pleural effusion consistent with pulmonary edema at the lung base and indeterminate left adrenal nodules, mild wall thickening of the gallbladder fundus which could represent adenomyomatous polyp and right upper quadrant ultrasound is recommended. The patient's microbiology grew Staph aureus, again sensitive to Levaquin, Zyvox, and vancomycin. ASSESSMENT: 1. Sepsis. 2. Gallbladder thickening. 3. Coronary artery disease. 4. Atrial fibrillation. 5. Hypertension. 6. Uncontrolled diabetes mellitus. PLAN: The patient had been sent home earlier on the previous admission on Levaquin, came back in about a week still on the Levaquin and with the same febrile illness. We will keep the patient in-house for another 2 to 3 days on vancomycin. Continue monitoring his vancomycin levels, possible ultrasound of the gallbladder for adenomyosis and continue with IV fluids and his regular CV medications and diabetic medication. Further recommendation and clinical course, we will continue to monitor the patient. Thom Finn MD ASJ/MODL /[id number]
[2018-07-13] MEDS: APIXAB 2.5 MG TABLET PO SCH (17:25)
[2018-07-13] MEDS: SODIUM CHLORIDE 0.9% 1000ML 1,000 ML IV SCH (18:15)
[2018-07-13] MEDS: ATORVASTATIN 20 MG TAB PO SCH (21:08)
[2018-07-14] VITALS (8 sets, daily range): BP systolic 121–156; BP diastolic 60–75
[2018-07-14] MEDS: CEFEPIME 1GM/NS 0.9% 50 ML 50 ML IV SCH ×2 (05:42→14:25)
[2018-07-14 06:29] LABS: BASOPHILS % 0.4 % (0.0-1.0); EOSINOPHILS # (AUTO) 0.1 (0.0-0.4); EOSINOPHILS % 0.7 % (0.0-6.0); HEMATOCRIT 27.3 % (38.2-49.6); HEMOGLOBIN 9.1 g/dL (14.0-18.0); LYMPHOCYTES # (AUTO) 0.7 (1.0-3.2); LYMPHOCYTES % 8.2 % (18.0-39.1); MEAN CORPUSCULAR HEMOGLOBIN 29.7 pg (28-32); MEAN CORPUSCULAR HGB CONC 33.3 g/dL (31-35); MEAN CORPUSCULAR VOLUME 89.2 fL (81-99); MONOCYTES # (AUTO) 0.7 (0.2-0.8); MONOCYTES % 8.1 % (4.4-11.3); NEUTROPHILS # (AUTO) 7.4 (2.1-6.9); NEUTROPHILS % 81.5 % (38.7-80.0); PLATELET COUNT 161 x10e3/uL (140-360); RED BLOOD COUNT 3.06 x10e6/uL (4.3-5.7)
[2018-07-14 06:45] LABS: ANION GAP 9.9 mmol/L (8-16); BLOOD UREA NITROGEN 15 mg/dL (7-26); BUN/CREATININE RATIO 16 (6-25); CALCIUM 8.3 mg/dL (8.4-10.2); CARBON DIOXIDE 24 mmol/L (22-29); CHLORIDE 104 mmol/L (98-107); CREATININE, SERUM 0.93 mg/dL (0.72-1.25); EST GLOMERULAR FILTRATION RATE > 60 ML/MIN (60-); GLUCOSE 201 mg/dL (74-118); POTASSIUM 3.9 mmol/L (3.5-5.1); SODIUM 134 mmol/L (136-145)
--- NOTE | 2018-07-14 07:01 | NUR ---
Report given to oncoming nurse,walking round done.
[2018-07-14] MEDS: VANCOMYCIN 1GM/NS 250 ML 250 ML IV SCH (08:42)
[2018-07-14] MEDS: INSULIN LISPRO 100 UNIT/1 ML 3ML VIAL SQ SCH ×4 (08:42→21:49)
[2018-07-14] MEDS: AMIODARONE HCL 200 MG TAB PO SCH (08:43)
[2018-07-14] MEDS: FERROUS SULFATE 325 MG TAB PO SCH (08:43)
--- NOTE | 2018-07-14 13:04 | Diagnostic Imaging Report ---
EXAM: Right Upper Quadrant Ultrasound INDICATION: ^wall thickening COMPARISON: CT abdomen and pelvis 07/12/2018. TECHNIQUE: Transverse and longitudinal images of the right upper abdomen were obtained. FINDINGS: Liver: Size: 14.8 cm in the right midclavicular line, normal Appearance: Heterogeneous and increased echogenicity, smooth contour Mass: 2.6 x 1.9 x 2.7 cm hyperechoic region in the right hepatic lobe adjacent to the portal vein. Gallbladder: Stones/Sludge: None Wall: 0.7 cm Appearance: No pericholecystic fluid or hydrops. Contracted. Sonographic Tatum's Sign: Negative Bile Ducts: Intrahepatic Ducts: No dilatation Extrahepatic Ducts: Common bile duct measures 0.3 cm, no dilatation Pancreas: Visualized portions of the pancreatic head, neck and proximal body are normal. Right Kidney: Size: 11.1 x 5.1 x 5.2 cm Echogenicity: Normal Parenchymal thickness: Normal Collecting system: No hydronephrosis Stones: None Cyst/Mass: None Vessels: Aorta: Visualized portions are normal Inferior Vena Cava: Visualized portions are normal Main Portal Vein: 0.8 cm, normal size with hepatopetal flow. Free Fluid: Trace ascites around the liver. Small pleural effusion. IMPRESSION: 1. Gallbladder is contracted. Suboptimal evaluation. 2. Gallbladder wall thickening, likely related to contraction. There is highly likely that there are stones and sludge. However, this is not well visualized. 3. Diffuse hepatic steatosis. Indeterminate 2.7 cm lesion the right upper lobe adjacent to the portal vein. This may represent focal fatty infiltration versus a hemangioma. 4. Trace free fluid adjacent to liver Signed by: Dr. Dima Laurent M.D. on 07/14/2018 1:01 PM
[2018-07-14] MEDS: MUPIROCIN 2% OINT 22 GM TUBE TOP SCH (13:37)
[2018-07-14] MEDS: GUAIFENESIN 200 MG/10 ML UDC PO PRN (13:37)
--- NOTE | 2018-07-14 17:43 | Diagnostic Imaging Report ---
EXAM: CT Chest WITH contrast 07/14/2018 4:45 PM INDICATION: ^endocarditis COMPARISON: CT abdomen and pelvis 07/12/2018 TECHNIQUE: Chest was scanned utilizing a multidetector helical scanner from the lung apex through the level of the adrenal glands without administration of IV contrast. Coronal and sagittal reformations were obtained. Routine protocol was performed. IV CONTRAST: 100 mL of Isovue 370 COMPLICATIONS: None RADIATION DOSE: Total DLP: 608.29 mGy*cm Estimated effective dose: (DLP x 0.014 x size factor) mSv CTDIvol has been reviewed. It is below the limits set by the Radiation Protocol Committee (RPC). Dose modulation, iterative reconstruction, and/or weight based adjustment of the mA/kV was utilized to reduce the radiation dose to as low as reasonably achievable. FINDINGS: LINES/ TUBES: Median sternotomy wires and mediastinal clips. LUNGS AND AIRWAYS: There is bibasilar atelectasis. Airways are normal. PLEURA: Moderate right and small left pleural effusions. HEART AND MEDIASTINUM: The thyroid gland is normal. No mediastinal, hilar or axillary lymphadenopathy. Precarinal lymph node measures 0.9 cm. The heart is normal in size. There is no pericardial effusion. There are significant atherosclerotic calcifications in the aorta and coronary arteries. Aortic annular calcification. UPPER ABDOMEN: Left adrenal nodules are better seen on CT abdomen and pelvis 07/12/2018. Calcified splenic granulomas. Diffuse hepatic steatosis. BONES: The visualized bony thorax is within normal limits. SOFT TISSUES: Unremarkable. IMPRESSION: 1. Moderate right and small left pleural effusions. 2. No consolidations or evidence of emboli. Signed by: Dr. Dima Laurent M.D. on 07/14/2018 5:40 PM
[2018-07-14] MEDS ORDERED: IOPAMIDOL 370 MG/ML 200 ML INFUS..BTL INJ ONE (17:59)
[2018-07-14] MEDS ORDERED: SODIUM CHLORIDE 0.9% 50ML 50 ML ONE (17:59)
[2018-07-14] MEDS: NAFCILLIN SOD 2 GM/NS 100ML 100 ML IV SCH ×2 (18:01→21:49)
[2018-07-14] MEDS: APIXAB 2.5 MG TABLET PO SCH (18:01)
--- NOTE | 2018-07-14 20:09 | Diagnostic Imaging Report ---
EXAMINATION: CHEST XRAY LINE PLACEMENT COMPARISON: CT chest 1713 hours INDICATION: Line placement ^PICC line placement DISCUSSION: Frontal view of the chest obtained at 1943 hours. HEART AND MEDIASTINUM: Stable cardiomegaly and aortic ectasia. Prominent pulmonary vascular markings LINES: Right PICC line terminates in the SVC without pneumothorax LUNGS: Right basilar airspace opacity suggestive of atelectasis. No infiltrates in the left lung. PLEURA: Haziness of the right lung base is suggestive of pleural effusion. No evidence of left pleural effusion. No pneumothorax. BONES AND SOFT TISSUES: Median sternotomy wires are intact. The soft tissues are normal. IMPRESSION: Right PICC line terminates in the SVC without pneumothorax. Cardiomegaly and vascular congestion. Right pleural effusion. Signed by: Dr. Conrad Crawford MD on 07/14/2018 8:06 PM
[2018-07-14] MEDS: ATORVASTATIN 20 MG TAB PO SCH (21:48)
[2018-07-15] VITALS (8 sets, daily range): BP systolic 107–172; BP diastolic 54–95
[2018-07-15] MEDS: NAFCILLIN SOD 2 GM/NS 100ML 100 ML IV SCH ×6 (01:51→21:48)
--- NOTE | 2018-07-15 01:55 | Consultation ---
DATE OF CONSULTATION: Consultation Note REASON FOR CONSULTATION: Bacteremia with Staph aureus. HISTORY OF PRESENT ILLNESS: This patient is a very pleasant 68-year-old white male. The patient comes in to this hospital on July 11, 2018, with confusion. The patient at that time he was admitted. He was diagnosed recently with sepsis, who was apparently discharged home on Levaquin. He was there for a few days. There were no fever or chills, but he was just not feeling well. He came back with fever and chills on June 30. The patient has a history of coronary artery disease, history of paroxysmal atrial fibrillation, history of congestive heart failure, history of hypertension, incontinence, coronary artery disease, status post CABG and more importantly, he also had aortic valve replacement with a pig valve a year ago. The patient was discharged home with oral antibiotic, but now he is coming back on July 10, with a feeling of bad, not doing well. The patient is being admitted. Also, the patient tells me he is just not feeling well in general, even though he is taking Levaquin. I reviewed his chart, reviewed his electronic records, and reviewed his past records. The patient did have MSSA bacteremia in two sets on July 10, 2018. PHYSICAL EXAMINATION: GENERAL: He is currently alert and oriented, does not seem to be in acute distress. VITAL SIGNS: Stable. Currently, afebrile. HEENT: Not icteric. NECK: Supple. CHEST: Clear. HEART: S1 and S2. He did have 3/6 systolic ejection fraction in the apex. ABDOMEN: Soft. Bowel sounds present. No tenderness. EXTREMITIES: No edema. SKIN: No rash. IMPRESSION: Staph aureus bacteremia, heart murmur, and history of aortic valve replacement. Also on physical examination, there is a splinter in the right index, it is all consistent with endocarditis. We will put the patient on nafcillin 2 g p.o. 8. Obtain the PICC line, would need 8 weeks of antibiotic. Recommend PASTOR. Recheck of blood cultures. Obtain a sedimentation rate, C-reactive protein, CT body. We will follow with you. MD DAYANARA Rosas/MAYRA /[id number]
--- NOTE | 2018-07-15 06:51 | NUR ---
Report given to oncoming nurse.
[2018-07-15] MEDS: INSULIN LISPRO 100 UNIT/1 ML 3ML VIAL SQ SCH ×4 (08:14→21:46)
[2018-07-15] MEDS: AMIODARONE HCL 200 MG TAB PO SCH (08:14)
[2018-07-15] MEDS: FERROUS SULFATE 325 MG TAB PO SCH (08:14)
[2018-07-15] MEDS: APIXAB 2.5 MG TABLET PO SCH (16:43)
--- NOTE | 2018-07-15 20:10 | NUR ---
RECEIVE DPT IN BED AOX3 .DENIES PAIN NO ACUTE DISTRESS NOTED CALL LIGHT WITH IN REACH .CONTINUE TO MONITOR
[2018-07-15] MEDS: ATORVASTATIN 20 MG TAB PO SCH (21:45)
[2018-07-16] VITALS (9 sets, daily range): BP systolic 106–153; BP diastolic 53–67
[2018-07-16] MEDS: NAFCILLIN SOD 2 GM/NS 100ML 100 ML IV SCH ×6 (02:00→22:00)
[2018-07-16] MEDS: INSULIN LISPRO 100 UNIT/1 ML 3ML VIAL SQ SCH ×4 (07:30→20:17)
--- NOTE | 2018-07-16 07:50 | NUR ---
PT RESTED DURING THE NIGHT AND REPORT GIVEN OT THE ONCOMING NURSE
[2018-07-16] MEDS: AMIODARONE HCL 200 MG TAB PO SCH (08:34)
[2018-07-16] MEDS: FERROUS SULFATE 325 MG TAB PO SCH (08:34)
--- NOTE | 2018-07-16 09:44 | NUR ---
Visit made by the Spiritual Care Department Pastoral Visitor, Kaitlin Reynoso. PV provided pastoral presence, hospitality, and supportive listening. Pastoral Visitor informed pt/family of the scope of [employer] and availability. MERARY KAUR Machine Tool Technology Instructor Spiritual Care Department O: [phone] Pager: [phone] ([phone] calling from)
[2018-07-16] MEDS: MUPIROCIN 2% OINT 22 GM TUBE TOP SCH (10:16)
--- NOTE | 2018-07-16 10:37 | Progress Note ---
DATE: SUBJECTIVE: The patient is here for bacteremia. The patient has been changed to nafcillin from vancomycin. The patient is scheduled for PASTOR. Microbiology shows Staphylococcus aureus in both blood cultures. OBJECTIVE: GENERAL: The patient is awake, alert, and oriented x3. VITAL SIGNS: Temperature is 98.0, blood pressure is 146/63, temperature is 100.7 T-max. HEENT: Normocephalic, atraumatic. Pupils are reactive to light and accommodation. CVS: S1 and S2 normal. Regular rhythm. ABDOMEN: Nontender, nondistended. EXTREMITIES: No clubbing, no cyanosis, and no edema. LABORATORY DATA: The patient's culture is sensitive to vancomycin. The last vancomycin trough was done on 07/13/2018 and was 14.8. Chemistries; negative, none done today. Hematology; white count none done today. ASSESSMENT: 1. Bacteremia, rule out endocarditis. A PASTOR has been ordered. The patient's previous echo was normal. We will continue to monitor the patient. 2. Coronary artery disease. Continue with cardiac medication. 3. Congestive heart failure, chronic, systolic. Continue with diuretics. 4. Hypertension. Continue with antihypertensives. 5. Diabetes mellitus. Continue with blood sugar monitoring. The patient's blood chemistry showed a glucose of 200s to 250s. We will go ahead and increase his baseline insulin. Further recommendation and clinical course, we will continue to monitor the patient. MD DIOGENES Donnelly/MODL /[id number]
--- NOTE | 2018-07-16 13:05 | NUR ---
PASTOR IN AM TO R/O ENDOCARDITIS IN LIGHT OF 2 POSITIVE BLOOD CULTURES
[2018-07-16] MEDS: APIXAB 2.5 MG TABLET PO SCH (17:44)
--- NOTE | 2018-07-16 18:50 | NUR ---
CALL PLACED OUT TO DR. SOUSA AND/OR HIS N.P. REGARDING UPDATE ON PROCEDURE DAY- AWAITING CALLBACK.
--- NOTE | 2018-07-16 19:03 | NUR ---
RECEIVED A CALLBACK FROM DR. GERMAN- INQUIRED WITH DR. GERMAN IF PASTOR PROCEDURE WILL BE DONE TOMORROW OR MONDAY. DR. GERMAN NOT AWARE OF PASTOR SCHEDULE AND ORDERED FOR PATIENT TO REMAIN NPO AFTER MIDNIGHT AND WAIT FOR THE PHYSICIAN OR N.P. TO ROUND TOMORROW MORNING.
--- NOTE | 2018-07-16 19:33 | NUR ---
PATIENT IS AWAKE AND IN STABLE CONDITION WITH NO S/S OF RESPIRATORY DISTRESS. NO PAIN VOICED. DIAPER APPLIED. FAMILY MEMBERS PRESENT IN ROOM. CALL LIGHT IS WITHIN REACH, PATIENT INSTRUCTED TO CALL FOR ASSISTANCE NEEDED. PATIENT ASKED NURSING STAFF NOT TO DO BEDSIDE ROUNDING IN HIS ROOM TOMORROW BUT IS OKAY WITH COMMUNICATION BOARD BEING UPDATED. BEDSIDE REPORT COMPLETED WITH ONCOMING NURSE.
--- NOTE | 2018-07-16 20:18 | NUR ---
RECEIVED PT IN BED AOX3 .FAMILY AT THE BEDSIDE .DENIES PAIN C/O COUGH AND GIVEN COUGH MEDS .CONTINUE TO MONITOR
[2018-07-16] MEDS: ATORVASTATIN 20 MG TAB PO SCH (20:36)
[2018-07-16] MEDS: INSULIN GLARGINE 100 UNITS/ML VIAL SQ SCH (20:36)
[2018-07-17] VITALS (9 sets, daily range): BP systolic 121–182; BP diastolic 53–75
[2018-07-17] MEDS: NAFCILLIN SOD 2 GM/NS 100ML 100 ML IV SCH ×6 (02:00→22:00)
[2018-07-17 06:31] LABS: BASOPHILS % 0.6 % (0.0-1.0); EOSINOPHILS # (AUTO) 0.1 (0.0-0.4); EOSINOPHILS % 1.1 % (0.0-6.0); HEMATOCRIT 28.4 % (38.2-49.6); HEMOGLOBIN 9.5 g/dL (14.0-18.0); LYMPHOCYTES % 15.3 % (18.0-39.1); MEAN CORPUSCULAR HEMOGLOBIN 30.1 pg (28-32); MEAN CORPUSCULAR HGB CONC 33.5 g/dL (31-35); MEAN CORPUSCULAR VOLUME 89.9 fL (81-99); MONOCYTES # (AUTO) 0.7 (0.2-0.8); MONOCYTES % 10.2 % (4.4-11.3); NEUTROPHILS # (AUTO) 4.3 (2.1-6.9); NEUTROPHILS % 67.6 % (38.7-80.0); PLATELET COUNT 277 x10e3/uL (140-360); RED BLOOD COUNT 3.16 x10e6/uL (4.3-5.7); RED CELL DISTRIBUTION WIDTH 13.6 % (11.7-14.4)
[2018-07-17 06:56] LABS: BLOOD UREA NITROGEN 15 mg/dL (7-26); BUN/CREATININE RATIO 14 (6-25); CALCIUM 8.7 mg/dL (8.4-10.2); CARBON DIOXIDE 28 mmol/L (22-29); CHLORIDE 95 mmol/L (98-107); CREATININE, SERUM 1.07 mg/dL (0.72-1.25); EST GLOMERULAR FILTRATION RATE > 60 ML/MIN (60-); GLUCOSE 235 mg/dL (74-118); SODIUM 131 mmol/L (136-145)
[2018-07-17] MEDS: INSULIN LISPRO 100 UNIT/1 ML 3ML VIAL SQ SCH ×4 (07:30→21:00)
--- NOTE | 2018-07-17 07:46 | NUR ---
PT IS NPO FOR PASTOR .CONSENT SIGNED PT HAD BATH .FAMILY AT THE BEDSIDE .DENIES PAIN .CALL LIGHT WITH IN REACH.REPORT GIVEN TO THE ONCOMING NURSE
[2018-07-17] MEDS: MUPIROCIN 2% OINT 22 GM TUBE TOP SCH (09:10)
--- NOTE | 2018-07-17 09:17 | NUR ---
CALL PLACED OUT TO DR. SOUSA REGARDING PROCEDURE- AWAITING CALLBACK.
[2018-07-17] MEDS: AMIODARONE HCL 200 MG TAB PO SCH (10:44)
[2018-07-17] MEDS: FERROUS SULFATE 325 MG TAB PO SCH (10:44)
[2018-07-17 10:47] LABS: BAND NEUTROPHILS % (MANUAL) 14 %; EOSINOPHILS % (MANUAL) 1 % (0-7); LYMPHOCYTES % (MANUAL) 14 % (19-48); MONOCYTES % (MANUAL) 7 % (3.4-9.0); NEUTROPHILS % (MANUAL) 61 % (40-74); NUCLEATED RED BLOOD CELLS 1; PLATELET ESTIMATE ADEQUATE; PLATELET MORPHOLOGY COMMENT NORMAL; PROMYELOCYTES % (MANUAL) 3 % (0-0); RBC MORPHOLOGY COMMENT NORMAL
--- NOTE | 2018-07-17 10:54 | Progress Note ---
DATE: SUBJECTIVE: The patient is here for sepsis, bacteremia, scheduled to get a PASTOR today. The patient's microbiology grew Staphylococcus aureus, sensitive to Bactrim, vancomycin, and Rocephin. The patient is currently getting nafcillin q.6 hours. The patient has a PICC line. Currently asymptomatic. OBJECTIVE: VITAL SIGNS: Temperature is 98.2, blood pressure is 139/65, and pulse oximetry 91%. HEENT: Normocephalic, atraumatic. Pupils are reactive to light and accommodation. CVS: S1 and S2 normal. Regular rate and rhythm. ABDOMEN: Nontender, nondistended. EXTREMITIES: No clubbing, no cyanosis, no edema. LABORATORY DATA: Pending today's labs. The patient's white count had normalized with slight left shift. ASSESSMENT: 1. Bacteremia. The patient is scheduled for PASTOR to rule out endocarditis. 2. Hypertension. We will continue CV medication. 3. Coronary artery disease. We will continue on CV medication. We will also continue with anticoagulation. Further recommendations and clinical course, we will continue to monitor the patient. The patient can be discharged home on IV antibiotics, 6 weeks of antibiotics as recommended by Dr. Anaya. Follow up as an outpatient basis. MD DIOGENES Donnelly/MAYRA /[id number]
--- NOTE | 2018-07-17 12:21 | NUR ---
NOT ABLE TO DO PASTOR TILL DUE TO MANAGER CORPORATE COMMUNICATIONS BEING BOOKED DR MARTINEZ AWARE ARRANGING OP IV ABX AT HIS OFFICE FOLLOWS ANCEF 2 GM IV Q 8 X 8 WEEKS WAITING FOR APPROVAL I SPOKE WITH MADAN AT DR MARTINEZ'S INFUSION SUITE SHE WILL CALL ME WHEN APPROVED
[2018-07-17] MEDS: APIXAB 2.5 MG TABLET PO SCH (17:26)
--- NOTE | 2018-07-17 19:25 | NUR ---
PATIENT SITTING IN THE RECLINER AND IS IN STABLE CONDITION WITH NO S/S OF RESPIRATORY DISTRESS. NO PAIN VOICED. CALL LIGHT IS WITHIN REACH, INSTRUCTED TO CALL FOR ASSISTANCE NEEDED. PRESENT IN ROOM. REPORT GIVEN TO ONCOMING NURSE.
--- NOTE | 2018-07-17 20:00 | NUR ---
RECEIVED PT IN CHAIR .NO ACUTE DISTRESS NOTED .FAMILY AT THE BEDSIDE NPO AFTER MIDNIGHT FOR PASTOR.CONTINUE TO MONITOR
[2018-07-17] MEDS: INSULIN GLARGINE 100 UNITS/ML VIAL SQ SCH (21:00)
[2018-07-17] MEDS: ATORVASTATIN 20 MG TAB PO SCH (23:23)
[2018-07-18] MEDS: NAFCILLIN SOD 2 GM/NS 100ML 100 ML IV SCH ×3 (02:00→10:29)
[2018-07-18] MEDS ORDERED: SODIUM CHLORIDE 0.9% 250ML 250 ML ONE (03:48)
[2018-07-18 04:00] VITALS: BP 138/70
--- NOTE | 2018-07-18 05:40 | NUR ---
PT IS NPO FOR PASTOR .NO ACUTE DISTRESS NOTED .CALL LIGHT WITH IN REACCH .FAMILY AT THE BEDSIDE .CONTINUE TO MONITOR
--- NOTE | 2018-07-18 07:26 | NUR ---
REPORT GIVEN TO THE ONCOMING NURSE
[2018-07-18] MEDS: INSULIN LISPRO 100 UNIT/1 ML 3ML VIAL SQ SCH ×2 (07:30→12:30)
[2018-07-18] MEDS ORDERED: SODIUM CHLORIDE 0.9% 1000ML 1,000 ML ONE (07:52)
[2018-07-18] MEDS ORDERED: BENZOCAINE 20% SPR 60 ML CAN ONE (07:52)
[2018-07-18 08:00] VITALS: BP 143/75
[2018-07-18 08:13] VITALS: BP 143/75
[2018-07-18] MEDS ORDERED: INSULIN REGULAR, HUMAN 100 UNIT/1 ML 3ML VIAL ONE (09:52)
[2018-07-18 10:15] VITALS: BP 114/57
[2018-07-18] MEDS: AMIODARONE HCL 200 MG TAB PO SCH (10:28)
[2018-07-18] MEDS: MUPIROCIN 2% OINT 22 GM TUBE TOP SCH (10:28)
[2018-07-18] MEDS: FERROUS SULFATE 325 MG TAB PO SCH (10:28)
--- NOTE | 2018-07-18 11:41 | Progress Note ---
DATE: SUBJECTIVE: The patient is here for bacteremia and sepsis. The patient is awaiting a PASTOR, which will be done this morning to rule out bacterial endocarditis. The patient is currently on nafcillin for suspected bacterial endocarditis and sepsis. OBJECTIVE: VITAL SIGNS: Temperature is 97.9, pulse of 91, respirations of 20, blood pressure is 138/70, pulse oximetry of 92%. HEENT: Normocephalic, atraumatic. Pupils are reactive to light and accommodation. CVS: S1 and S2 normal. Regular rate and rhythm. ABDOMEN: Nontender and nondistended. EXTREMITIES: No clubbing, no cyanosis, no edema. LABORATORY DATA: Yesterday's sodium was 131, potassium of 4.0, BUN 15, creatinine of 1.07, glucoses have been ranging in the 350s. Hematology; white count 6.35, hemoglobin of 9.5, hematocrit of 28.5, left shift not present. ASSESSMENT: 1. Bacteremia and septicemia. Source unknown. 2. Suspected bacterial endocarditis. PASTOR will be done today. Echocardiogram was normal. 3. Hypertension. Continue with CV medication. 4. Hyperlipidemia. Continue with hyperlipidemic agent. 5. Coronary artery disease. The patient is currently on beta-blockades and SRINATH inhibitors. The patient is also on apixaban for transient atrial fibrillation and is anticoagulated. The patient can be discharged today after PASTOR. The patient has an arrangement for IV antibiotics for six weeks' duration. Further recommendation and clinical course, the patient can be discharged today after PASTOR. The patient will be followed up with me in about a week's time and also with Dr. Anaya after discharge today. MD DIOGENES Donnelly/ORIONL /[id number]
[2018-07-18 12:02] VITALS: BP 106/62
--- NOTE | 2018-07-18 12:35 | NUR ---
PASTOR DONE THIS MORNING IV ABX APPROVED WITH DR MARTINEZ'S OFFICE FOR ANCEF X [address] MARTINEZ'S OFFICE TODAY AT 2PM PT AND NOTIFIED MAP AND ADDRESS FOR DR MARTINEZ GIVEN TO PT
--- NOTE | 2018-07-18 13:00 | NUR ---
Pt discharged home at this time. Pt went home with PICC line in place because he will have antibiotic therapy with Dr. Anaya. Pt educated related to PICC line done and pt verbalized understanding.
[2018-07-18] MEDS ORDERED: LIDOCAINE HCL 2% LOCAL INJ 5 ML SDV VIAL INJ ONE (17:42)
[2018-07-18] MEDS ORDERED: PROPOFOL IV EMULSION 10 MG/ML 20 ML VIAL ONE (17:42)
[2018-07-18] MEDS ORDERED: FENTANYL CITRATE/PF 100MCG/2 ML INJ ONE (17:55)
[2018-07-18] MEDS ORDERED: MIDAZOLAM HCL 2 MG/2 ML VIAL ONE (17:55)
== END 2018-07-18 13:11 | disposition home or self-care (01) | DRG 871 ==
LOC: ER 08:15 → ERHOLD 10:54 → MED/SURG3 15:12
PROVIDERS: ADMIT Family Medicine; ATTEND Family Medicine
PROC: 02HV33Z Insertion of Infusion Device into Superior Vena Cava, Percutaneous Approach (ICD-10-PCS; principal; 2018-07-14)
DX: A41.50 Gram-negative sepsis, unspecified (principal); I33.0 Acute and subacute infective endocarditis; N17.9 Acute kidney failure, unspecified; I50.22 Chronic systolic (congestive) heart failure; I48.0 Paroxysmal atrial fibrillation; Z79.01 Long term (current) use of anticoagulants; E78.5 Hyperlipidemia, unspecified; I25.10 Atherosclerotic heart disease of native coronary artery without angina pectoris; Z95.1 Presence of aortocoronary bypass graft; B95.61 Methicillin susceptible Staphylococcus aureus infection as the cause of diseases classified elsewhere; Z95.3 Presence of xenogenic heart valve; I11.0 Hypertensive heart disease with heart failure; K82.9 Disease of gallbladder, unspecified; E11.65 Type 2 diabetes mellitus with hyperglycemia
CPT/HCPCS: 36415; 36569; 71045; 71260; 74177; 76705; 80048; 80053; 80202; 81001; 82550; 82553; 82948; 83605; 84484; 85025; 85610; 85730; 87040; 87071; 87086; 87186; 87205; 93005; 93306; 93307; 93312; 93325; 99284; J0692; J1815; J2001; J2250; J3370; J7030; J7050; Q9967

== ENCOUNTER 2018-09-07 19:15 | Inpatient (IN) | payer MEDICARE, OTHER ==
[~2018-09-07] VITALS: Ht 175.3 cm; Wt 94.5 kg
--- OUTSIDE RECORDS SUMMARY | 2018-09-07 19:19 | XMS REPORT | Clinical Summary ---
Author Author [facility] Organization [facility] Address Unknown Phone Unavailable Care Team Providers Care Move Coordinator Name Role Phone Thom Finn MD PCP Allergies No Known Allergies Medications End Date Status Medication Sig Dispensed Refills Start Date Active aspirin (ECOTRIN) 81 MG Take 81 mg by 0 enteric coated tablet mouth daily. Active Problems Problem Noted Date Myopathy 05/24/2017 [...] VACCINE AGE 65 AND OVER INFLUENZA VACCINE 12/13/2018 Implants Device Identifier Shelf Expiration Date Model / Serial / Lot Implanted Type Area Manufactur er 6500F / / Lead Pace David Mycrdl Unipol Tmpry Cardiovasc N/A: N/A [employer] Streamline - [id number] ular [place] - Implanted: 05/03/2017 (Quantity not Implants CARDIAC on file) SRGRY 06/23/2020 E100 23A 00 / [id number] / [id number] Valve Aortc Stntd Tiss Annls W/ Cardiovasc N/A: N/A ST TISHA Linx Ac Tech 23mm Epic - [id number] ular STRUCTURAL Implanted: 05/03/2017 (Quantity not Implants HEART on file) 6500F / / Lead Pace David Mycrdl Unipol Tmpry Cardiovasc N/A: N/A [employer] Streamline - [id number] ular [place] - Implanted: 05/03/2017 (Quantity not Implants CARDIAC on file) SRGRY 6500F / / Lead Pace David Mycrdl Unipol Tmpry Cardiovasc N/A: N/A [employer] Streamline - [id number] ular [place] - Implanted: 05/03/2017 (Quantity not Implants CARDIAC on file) SRGRY [id number] / / Clip Ligtng Weck Hemoclip Plus W/ Medical N/A: N/A TELEFLEX Tape Ti Lg - [id number] Clips for MEDICAL Implanted: 05/03/2017 (Quantity not Internal on file) Use [id number] / / Clip Ligtng Weck Hemoclip Plus W/ Medical N/A: N/A TELEFLEX Tape Ti Med - [id number] Clips for MEDICAL Implanted: 05/03/2017 (Quantity not Internal on file) Use 03/11/2022 [id number] / / [id number] Steele Perph Vasclr Ptfe 1.2x10cm Vascular N/A: N/A BARD 1.65mm - [id number] Graft PERIPHERAL Implanted: 05/03/2017 (Quantity not VASCULAR on file) 01/09/2022 [id number] / / [id number] Steele Perph Vasclr Ptfe 1.2x10cm Vascular N/A: N/A BARD 1.65mm - [id number] Graft PERIPHERAL Implanted: 05/03/2017 (Quantity not VASCULAR on file) 10/09/2021 [id number] / / [id number] [place] Perph Vasclr Ptfe 1.2x10cm Vascular N/A: N/A BARD 1.65mm - [id number] Graft PERIPHERAL Implanted: 05/03/2017 (Quantity not VASCULAR on file) Procedures Comments Procedure Name Priority Date/Time Associated Diagnosis TRANSFUSE PLATELETS Routine 01/17/2018 5:46 PM CDT after 09/06/2017 Results * Transfuse platelets (01/17/2018 5:46 PM CDT) after 09/06/2017 Insurance Payer Benefit Subscriber ID Type Phone Address Plan / Group MEDICARE MEDICARE xxxxxxxxxx Medicare [place], [place] PART A AND B BANKERS LIFE AND CASUALTY BANKERS xxxxxxxxx Commercial LIFE AND CASUALTY Advance Directives Patient has advance care planning documents on file. For more information, mason saravia contact: Farhat Scott [address] [place] [address]
--- NOTE | 2018-09-07 20:28 | Diagnostic Imaging Report ---
Examination: Single AP view of the chest. COMPARISON: July 14, 2018 INDICATION: Tachycardia DISCUSSION: Lines/tubes: None. Lungs: The lungs are well inflated and clear. No pneumonia or pulmonary edema. Pleura: No pleural effusion or pneumothorax. Heart and mediastinum: The heart and the mediastinum are unremarkable. Bones and soft tissues: No acute bony abnormalities. IMPRESSION: 1. No acute cardiopulmonary abnormalities. Signed by: Dr. Gerald Kee M.D. on 09/07/2018 8:25 PM
[2018-09-07] MEDS ORDERED: APIXAB 2.5 MG TABLET PO SCH (20:45)
[2018-09-07] MEDS ORDERED: AMIODARONE HCL 150MG 100 ML IV SCH (20:45)
[2018-09-07] MEDS ORDERED: AMIODARONE HCL 360MG 200 ML IV SCH (20:45)
[2018-09-07] MEDS ORDERED: AMIODARONE HCL 900 MG in DEXTROSE 5 % 500ML BOTTLE 500 ML IV ONE (21:00)
[2018-09-07] MEDS ORDERED: APIXABAN 5 MG TABLET PO SCH (21:00)
[2018-09-07] MEDS ORDERED: AMIODARONE HCL 150 MG in DEXTROSE 5% 100ML 100 ML IV ONE (21:00)
[2018-09-07 21:06] LABS: BASOPHILS % 0.2 % (0.0-1.0); EOSINOPHILS % 0.5 % (0.0-6.0); HEMATOCRIT 38.6 % (38.2-49.6); HEMOGLOBIN 13.5 g/dL (14.0-18.0); LYMPHOCYTES # (AUTO) 1.1 (1.0-3.2); MEAN CORPUSCULAR HEMOGLOBIN 30.9 pg (28-32); MEAN CORPUSCULAR VOLUME 88.3 fL (81-99); MONOCYTES # (AUTO) 0.9 (0.2-0.8); MONOCYTES % 10.5 % (4.4-11.3); NEUTROPHILS # (AUTO) 6.1 (2.1-6.9); NEUTROPHILS % 75.3 % (38.7-80.0); PLATELET COUNT 209 x10e3/uL (140-360); RED BLOOD COUNT 4.37 x10e6/uL (4.3-5.7); RED CELL DISTRIBUTION WIDTH 12.6 % (11.7-14.4)
[2018-09-07 21:14] LABS: INR 0.98; PROTHROMBIN TIME 13.5 seconds (11.9-14.5)
[2018-09-07 21:15] LABS: PARTIAL THROMBOPLASTIN TIME 28.8 seconds (23.8-35.5)
[2018-09-07 21:23] LABS: ALBUMIN 3.7 g/dL (3.5-5.0); ANION GAP 15.8 mmol/L (8-16); CALCIUM 9.5 mg/dL (8.4-10.2); POTASSIUM 4.8 mmol/L (3.5-5.1)
[2018-09-07 22:34] LABS: CREATINE KINASE MB 0.9 ng/mL (0-5.0)
[2018-09-07] MEDS ORDERED: ONDANSETRON HCL INJ 2MG/ML 2ML 2 MG/ML VIAL IV PRN (23:00)
[2018-09-07] MEDS ORDERED: SODIUM CHLORIDE FLUSH 10 ML SYR INJ PRN (23:00)
--- OUTSIDE RECORDS SUMMARY | 2018-09-07 23:10 | XMS REPORT | Clinical Summary ---
Author Author [facility] Organization [facility] Address Unknown Phone Unavailable Care Team Providers Care Drawer In Name Role Phone Thom Finn MD PCP [...] Tmpry Cardiovasc N/A: N/A [employer] Streamline - [id number] ular [place] - Implanted: 05/03/2017 (Quantity not Implants CARDIAC on file) SRGRY 06/23/2020 E100 23A 00 / [id number] / [id number] Valve Aortc Stntd Tiss Annls W/ Cardiovasc N/A: N/A ST TISHA Linx Ac Tech 23mm Epic - [id number] ular STRUCTURAL Implanted: 05/03/2017 (Quantity not Implants HEART on file) 6500F / / Lead Pace David Mycrdl Unipol Tmpry Cardiovasc N/A: N/A [employer] Streamline - [id number] ular [place] - Implanted: 05/03/2017 (Quantity not Implants CARDIAC on file) SRGRY 6500F / / Lead Pace David Mycrdl Unipol Tmpry Cardiovasc N/A: N/A [employer] Streamline - [id number] ular [place] - Implanted: 05/03/2017 (Quantity not Implants CARDIAC on file) SRGRY [id number] / / Clip Ligtng Weck Hemoclip Plus W/ Medical N/A: N/A TELEFLEX Tape Ti Lg - [id number] Clips for MEDICAL Implanted: 05/03/2017 (Quantity not Internal on file) Use [id number] / / Clip Ligtng Weck Hemoclip Plus W/ Medical N/A: N/A TELEFLEX Tape Ti Med - [id number] Clips for MEDICAL Implanted: 05/03/2017 (Quantity not Internal on file) Use 03/11/2022 [id number] / / [id number] [place] Perph Vasclr Ptfe 1.2x10cm Vascular N/A: N/A BARD 1.65mm - [id number] Graft PERIPHERAL Implanted: 05/03/2017 (Quantity not VASCULAR on file) 01/09/2022 [id number] / / [id number] [place] Perph Vasclr Ptfe 1.2x10cm Vascular N/A: N/A BARD 1.65mm - [id number] Graft PERIPHERAL Implanted: 05/03/2017 (Quantity not VASCULAR on file) 10/09/2021 [id number] / / [id number] [place] Perph Vasclr Ptfe 1.2x10cm Vascular N/A: N/A BARD 1.65mm - [id number] Graft PERIPHERAL Implanted: 05/03/2017 (Quantity not VASCULAR on file) Procedures Comments Procedure Name Priority Date/Time Associated Diagnosis TRANSFUSE PLATELETS Routine 01/17/2018 5:46 PM CDT after 09/06/2017 Results * Transfuse platelets (01/17/2018 5:46 PM CDT) after 09/06/2017 Insurance Payer Benefit Subscriber ID Type Phone Address Plan / Group MEDICARE MEDICARE xxxxxxxxxx Medicare [place], [place] PART A AND B BANKERS LIFE AND CASUALTY BANKERS xxxxxxxxx Commercial LIFE AND CASUALTY Advance Directives Patient has advance care planning documents on file. For more information, mason saravia contact: Farhat Scott [address] [place] [address]
[2018-09-07] MEDS ORDERED: AMIODARONE HCL INJ 150MG/3ML ONE (23:17)
[2018-09-07] MEDS ORDERED: AMIODARONE 900MG 500 ML IV ONE (23:19)
[2018-09-08] VITALS (11 sets, daily range): BP systolic 91–119; BP diastolic 50–94
[2018-09-08] MEDS ORDERED: AMIODARONE HCL 360MG 200 ML IV SCH
[2018-09-08] MEDS ORDERED: LANTUS 3ML100 UNITS/ SQ (02:35)
[2018-09-08] MEDS ORDERED: HUMALOG100 UNIT/1 SQ (02:36)
--- NOTE | 2018-09-08 05:30 | NUR ---
Amiodarone gtt decreased to 16 mL/hr or 0.5 mg/min at 0530 according to protocol/MD order.
--- NOTE | 2018-09-08 06:34 | NUR ---
Spoke with Michelle at Dr. Anaya's office regarding consult at [phone].
[2018-09-08 06:46] LABS: BASOPHILS % 0.4 % (0.0-1.0); EOSINOPHILS # (AUTO) 0.1 (0.0-0.4); EOSINOPHILS % 1.8 % (0.0-6.0); HEMATOCRIT 34.8 % (38.2-49.6); LYMPHOCYTES # (AUTO) 1.3 (1.0-3.2); LYMPHOCYTES % 22.5 % (18.0-39.1); MEAN CORPUSCULAR HEMOGLOBIN 30.5 pg (28-32); MEAN CORPUSCULAR HGB CONC 34.5 g/dL (31-35); MEAN CORPUSCULAR VOLUME 88.5 fL (81-99); MONOCYTES # (AUTO) 0.7 (0.2-0.8); MONOCYTES % 11.6 % (4.4-11.3); NEUTROPHILS # (AUTO) 3.6 (2.1-6.9); NEUTROPHILS % 63.2 % (38.7-80.0); PLATELET COUNT 159 x10e3/uL (140-360); RED BLOOD COUNT 3.93 x10e6/uL (4.3-5.7); RED CELL DISTRIBUTION WIDTH 12.7 % (11.7-14.4)
[2018-09-08 07:00] LABS: ALBUMIN 3.2 g/dL (3.5-5.0); ALBUMIN/GLOBULIN RATIO 1.1 (0.8-2.0); ANION GAP 11.3 mmol/L (8-16); CALCIUM 9.2 mg/dL (8.4-10.2); CREATININE, SERUM 1.8 mg/dL (0.72-1.25); POTASSIUM 4.3 mmol/L (3.5-5.1)
--- NOTE | 2018-09-08 07:02 | Consultation ---
DATE OF CONSULTATION: Cardiology Consultation CHIEF COMPLAINT: The patient is a 68-year-old with atrial flutter. HISTORY OF PRESENT ILLNESS: The patient came to the office today and was noted to be in atrial flutter with a ventricular response of a 140. The patient had some shortness of breath, but no chest pain. Arrangements were made for the patient to be admitted. The patient was started on IV amiodarone. PAST MEDICAL HISTORY: Significant for: 1. Coronary artery bypass grafting in 2000. 2. Aortic valve replacement and repeat bypass surgery in April 2017 with a bioprosthetic valve. 3. History of staphylococcal aureus septicemia several months ago. 4. History of hyperlipidemia. 5. History of hypertension. 6. History of diabetes mellitus. 7. History of atrial fibrillation. CURRENT MEDICATIONS: 1. Digoxin. 2. Furosemide. 3. Eliquis. 4. Amiodarone. 5. Atorvastatin. 6. Metoprolol. SOCIAL HISTORY: The patient does not drink and does not smoke. PHYSICAL EXAMINATION: GENERAL: The patient is a well-developed, well-nourished male, in no obvious distress. VITAL SIGNS: Include a temperature of 98.8, blood pressure 120/70, and pulse of 80. HEAD, EYES, EARS, NOSE, AND THROAT: The patient's cranium is normocephalic and atraumatic. Extraocular muscles were intact. Sclerae are anicteric. Pupils are equal, round, and reactive to light. There is no pallor or cyanosis to the oral mucosa. There is no erythema or edema to the throat. NECK: Supple. No jugular venous distention. No carotid bruits. CHEST: Demonstrated a rhonchi bilaterally. CARDIAC: Demonstrated normal S1 with an abnormal s2. There was a 2/6 systolic murmur. ABDOMEN: Demonstrated good bowel sounds. No tenderness and no masses. EXTREMITIES: There is no clubbing, no cyanosis, and no edema. NEUROLOGIC: The patient is alert and oriented x3. Cranial nerves II through XII are intact. Motor strength is +5/+5 in all limbs. IMAGING DATA: The patient's initial EKG demonstrated atrial flutter with a rapid ventricular response. IMPRESSION: The patient is a 68-year-old with a history of aortic valve replacement and previous coronary artery bypass grafting, who presented with atrial flutter with a rapid ventricular response. RECOMMENDATIONS: 1. The patient will be given IV amiodarone. 2. The patient will be continued on Eliquis. 3. The patient will require PASTOR and cardioversion on Monday in order to convert him over to the normal rhythm. MD ARACELI Bales/MAYRA /[id number]
[2018-09-08 07:19] LABS: CREATINE KINASE MB 0.7 ng/mL (0-5.0)
[2018-09-08] MEDS: METOPROLOL TARTRATE 25 MG TAB PO SCH ×2 (09:00→17:23)
[2018-09-08] MEDS ORDERED: APIXAB 2.5 MG TABLET PO SCH ×2 (09:00)
[2018-09-08] MEDS ORDERED: PREDNISONE 10 MG TAB PO SCH (09:00)
[2018-09-08] MEDS: SOLIFENACIN SUCCINATE 5 MG TAB PO SCH (09:14)
[2018-09-08] MEDS: PANTOPRAZOLE SOD 40 MG TABEC PO SCH ×2 (09:14→17:06)
[2018-09-08] MEDS: SPIRONOLACTONE 25 MG TAB PO SCH ×2 (09:14→17:06)
[2018-09-08] MEDS: FERROUS SULFATE 325 MG TAB PO SCH (09:15)
[2018-09-08] MEDS: BENZONATATE 100 MG CAP PO SCH ×3 (09:19→21:00)
[2018-09-08] MEDS ORDERED: DEXTROSE 50% SYRINGE 50 ML IV PRN ×2 (11:45)
--- NOTE | 2018-09-08 12:24 | History and Physical ---
HISTORY OF PRESENT ILLNESS: The patient is a 68-year-old male, who was found to have paroxysmal atrial flutter. The patient's rhythm was identified at Dr. Anaya's office. The patient was sent to Dr. Ross's office yesterday and was found to be in atrial flutter. The patient admitted for cardioversion at this time. The patient has been asymptomatic throughout the whole process and the patient has a history of aortic valve replacement too. PAST MEDICAL HISTORY: History of hypertension, history of hyperlipidemia, history of diabetes mellitus, history of reflux esophagitis, recent history of aortic endocarditis, and also history of CAD, history of atrial flutter, which is recent. MEDICATIONS: Include amiodarone 200 mg daily, atorvastatin 20 mg daily, benzonatate 100 mg 3 times a day, Bumex 1 mg t.i.d., ferrous sulfate 325 mg daily, Lasix 40 mg daily, insulin glargine 30 units at nighttime, insulin lispro 3 times a day sliding scale, metoprolol 25 mg twice a day, omeprazole 40 mg b.i.d. prednisone 10 mg daily, and VESIcare 5 mg daily with aldactone 25 mg and Eliquis 2.5 mg twice a day. PAST SURGICAL HISTORY: History of coronary artery bypass in 2000 and AVR in 2017 with bypass. SOCIAL HISTORY: No EtOH. No IV drug abuse. No history of smoking either. FAMILY HISTORY: Noncontributory. Recent hospitalization for possible aortic valve endocarditis. REVIEW OF SYSTEMS: Negative for chest pain. No shortness of breath. Positive for palpitation. No nausea, vomiting, or diarrhea. No constipation. No rectal bleeding. No hematochezia. No hematemesis. PHYSICAL EXAMINATION: GENERAL: The patient is alert and oriented x3. VITAL SIGNS: Temperature is 97.5, pulse of 68, blood pressure is 91/54, pulse oximetry 100%. HEENT: Normocephalic, atraumatic. Pupils are reactive to light and accommodation. CVS: S1, S2 normal at this time. Regular rate and rhythm. ABDOMEN: Nontender, nondistended. EXTREMITIES: No clubbing, no cyanosis, no edema. The patient on the right side upper extremity has deformities. LABORATORY DATA: The patient's white count is 5.68, hemoglobin of 12.5, hematocrit of 34.8. Chemistries show sodium 135, potassium is 4.3, BUN of 48, creatinine of 1.80, total bilirubin was 0.4. BNP was 177.4. ASSESSMENT: 1. Atrial flutter. Plan is to start the patient on IV amiodarone, which has been started. 2. Coronary artery disease. 3. Status post coronary artery bypass surgery. 4. Hypertension. 5. Hyperlipidemia. 6. Diabetes mellitus. 7. History of bacterial endocarditis. PLAN: Plan is to continue on IV amiodarone and Eliquis has been started. The patient is scheduled for PASTOR with cardioversion on Monday. Further recommendation per clinical course. We will continue monitoring the patient. Restart his CV medication and diabetic medications too. MD DIOGENES Donnelly/MODL /[id number]
[2018-09-08] MEDS: INSULIN LISPRO 100 UNIT/1 ML 3ML VIAL SQ SCH ×3 (13:02→21:00)
[2018-09-08] MEDS: FUROSEMIDE 40 MG TAB PO SCH (13:06)
[2018-09-08] MEDS ORDERED: ONDANSETRON HCL 4 MG ORAL DISINTEGRATING TAB PO PRN (15:15)
[2018-09-08 15:34] LABS: CREATINE KINASE MB 0.6 ng/mL (0-5.0)
[2018-09-08] MEDS ORDERED: INSULIN LISPRO 100 UNIT/1 ML 3ML VIAL SQ SCH (16:30)
--- NOTE | 2018-09-08 17:36 | Consultation ---
DATE OF CONSULTATION: REASON FOR CONSULTATION: History of endocarditis. Thank you so much for asking me to see this patient. HISTORY OF PRESENT ILLNESS: This patient who is a very pleasant 68-year-old white male known to me. The patient who has had recently bacteremia, endocarditis, Staphylococcus aureus seen. He was treated with IV antibiotic for 8 weeks and then oral antibiotic and stopped, but during a followup evaluation in my office, it was noted that he is tachycardic, so I referred him to see his ophthalmic lens inspector, Dr. Ross. He went to see him in his office and he told him he need to be admitted. The patient had no chest pain, no shortness of breath. He was not feeling bad at all, but his heart rate is 140. He also had an EKG done, shown to have atrial flutter, so the patient is being admitted. He is currently lying in bed comfortably. He said he is feeling better and has no complaints. PAST MEDICAL HISTORY: Coronary artery disease status post CABG in 2000, aortic valve replacement in 2017. He also have endocarditis, Staphylococcus aureus bacteremia, history of hyperlipidemia, history of hypertension, diabetes mellitus, and atrial fibrillation. PAST SURGICAL HISTORY: CABG. ALLERGIES: NKA. SOCIAL HISTORY: There is no smoking, drug abuse, or alcohol abuse. FAMILY HISTORY: Otherwise, hypertension. REVIEW OF SYSTEMS: HEENT: Negative. PULMONARY: Negative. CARDIAC: Negative. : Negative. SKIN: There is no rash. MEDICATIONS: He is on amiodarone, atorvastatin, Bumex, iron sulfate, and Eliquis. PHYSICAL EXAMINATION: GENERAL: He is currently alert, oriented, does not seem to be in acute distress. VITAL SIGNS: Stable, afebrile. HEENT: He is normocephalic. Does not appear icteric. NECK: Supple. No JVD. No lymphadenopathy. No thyromegaly. CHEST: Clear bilateral. HEART: S1 and S2. No S3, S4, or murmur. ABDOMEN: Soft. Bowel sounds present. No tenderness. No hepatosplenomegaly. EXTREMITIES: No edema of the left upper extremity. There is a deformity. LABORATORY DATA: Reviewed. His white count is 8.07, hemoglobin of 13.5, and hematocrit 38. Sodium 135, potassium 4.3, and creatinine 1.80. IMPRESSION: 1. History of endocarditis, history of aortic valve replacement, concerned about valve infection status post treatment. I am going to check a blood culture, sedimentation rate, and C-reactive protein. 2. Arrhythmia, Cardiology is following. 3. Congestive heart failure. 4. Coronary artery disease. 5. Diabetes mellitus. 6. Hypercholesteremia. His medication list reviewed. He is currently on amiodarone, , Eliquis, Lipitor. 7. PASTOR is planned to follow up on his endocarditis. We will follow with his sedimentation rate and blood cultures. We need to follow his blood cultures several times as an outpatient when he lives here even if it is negative. Further recommendations to follow depending on the cultures and his clinical progress. MD DAYANARA Rosas/MAYRA /[id number]
--- NOTE | 2018-09-08 20:00 | NUR ---
RECEIVED PT IN BED AOX3 .DENIES PAIN RESPIRATIONS ARE EVEN AND UNLABORED ,SKIN WARM AND DRY TO TOUCH PT IS AMIODARONE DRIP .FAMILY AT THE BEDSIDE .CONTINUE TO MONITOR
[2018-09-08] MEDS: INSULIN GLARGINE 100 UNITS/ML VIAL SQ SCH (21:00)
[2018-09-08] MEDS: ATORVASTATIN 40 MG TAB PO SCH (21:00)
[2018-09-09] VITALS (9 sets, daily range): BP systolic 100–128; BP diastolic 57–73
[2018-09-09 05:04] LABS: BASOPHILS % 0.3 % (0.0-1.0); EOSINOPHILS % 0.4 % (0.0-6.0); HEMOGLOBIN 12.3 g/dL (14.0-18.0); LYMPHOCYTES # (AUTO) 0.9 (1.0-3.2); LYMPHOCYTES % 11.8 % (18.0-39.1); MEAN CORPUSCULAR HEMOGLOBIN 30.4 pg (28-32); MEAN CORPUSCULAR HGB CONC 34.2 g/dL (31-35); MEAN CORPUSCULAR VOLUME 89.1 fL (81-99); MONOCYTES # (AUTO) 0.5 (0.2-0.8); MONOCYTES % 6.4 % (4.4-11.3); NEUTROPHILS # (AUTO) 6.4 (2.1-6.9); NEUTROPHILS % 80.6 % (38.7-80.0); PLATELET COUNT 179 x10e3/uL (140-360); RED BLOOD COUNT 4.04 x10e6/uL (4.3-5.7); RED CELL DISTRIBUTION WIDTH 12.3 % (11.7-14.4)
[2018-09-09 05:22] LABS: ANION GAP 13.1 mmol/L (8-16); CALCIUM 9.1 mg/dL (8.4-10.2); CREATININE, SERUM 1.65 mg/dL (0.72-1.25); POTASSIUM 5.1 mmol/L (3.5-5.1)
--- NOTE | 2018-09-09 06:10 | NUR ---
PT RESTING .AMIODARONE DRIP COMPLETED DURING THE SHIFT .DENIES PAIN .CALL LIGHT WITH IN REACH .CONTINUE TO MONITOR
--- NOTE | 2018-09-09 07:03 | NUR ---
REPORT GIVEN TO THE ONCOMING NURSE
[2018-09-09] MEDS: SOLIFENACIN SUCCINATE 5 MG TAB PO SCH (08:09)
[2018-09-09] MEDS: FERROUS SULFATE 325 MG TAB PO SCH (08:09)
[2018-09-09] MEDS: FUROSEMIDE 40 MG TAB PO SCH (08:09)
[2018-09-09] MEDS: PANTOPRAZOLE SOD 40 MG TABEC PO SCH ×2 (08:09→17:00)
[2018-09-09] MEDS: SPIRONOLACTONE 25 MG TAB PO SCH ×2 (08:09→17:30)
[2018-09-09] MEDS: METOPROLOL TARTRATE 25 MG TAB PO SCH ×2 (08:09→17:30)
[2018-09-09] MEDS: INSULIN LISPRO 100 UNIT/1 ML 3ML VIAL SQ SCH ×4 (08:12→21:16)
--- NOTE | 2018-09-09 08:56 | NUR ---
Call placed to Dr. Trip Ross to ask about a possible PO amiodarone order since the IV amiodarone was completed overnight. Awaiting call back.
--- NOTE | 2018-09-09 08:58 | Progress Note ---
DATE: SUBJECTIVE: The patient is here for atrial fibrillation, atrial flutter and possible cardioversion tomorrow. Currently asymptomatic. Telemetry monitoring is within normal limits. The patient has no chest pains. No shortness of breath. No nausea, vomiting, diarrhea, or no constipation. OBJECTIVE: VITAL SIGNS: Temperature is 98.6, pulse of 66, respirations are 16, blood pressure is 112/66, and pulse oximetry of 97% on room air. HEENT: Normocephalic, atraumatic. Pupils are reactive to light and accommodation. CVS: S1 and S2, normal. Regular rate and rhythm. ABDOMEN: Nontender and nondistended. EXTREMITIES: No clubbing, no cyanosis, no edema. LABORATORY DATA: The patient's laboratory values today's hemoglobin is 12.3, hematocrit of 36. Chemistry shows sodium of 135, potassium 5.1, BUN of 44, creatinine of 1.65, with a glucose of 224. IMAGING STUDIES: Chest x-ray from yesterday was within normal limits. ASSESSMENT AND PLAN: Atrial fibrillation and atrial flutter. Plan is to continue on the IV amiodarone. The patient is on Eliquis. The patient is scheduled for PASTOR and cardioversion tomorrow for conversion. . Medications at this time include digoxin, furosemide, Eliquis, amiodarone, atorvastatin, and metoprolol. We will continue all his CV medication. Further recommendation per clinical course and also depending on Dr. Ross. Additional diagnoses include recent history of endocarditis, status post aortic valve replacement, status post coronary artery bypass grafting and history of coronary artery disease and diabetes mellitus. For further information, look in the chart. MD DIOGENES Donnelly/MODL /[id number] MTDTrip
[2018-09-09] MEDS: AMIODARONE HCL 200 MG TAB PO SCH (10:30)
--- NOTE | 2018-09-09 13:05 | NUR ---
Pt showered; linens and gown changed; room cleaned, trash removed.
[2018-09-09] MEDS ORDERED: LORAZEPAM 0.5 MG TAB PO PRN (17:30)
[2018-09-09] MEDS: ATORVASTATIN 40 MG TAB PO SCH (21:05)
[2018-09-09] MEDS: INSULIN GLARGINE 100 UNITS/ML VIAL SQ SCH (21:17)
[2018-09-10] VITALS (8 sets, daily range): BP systolic 102–131; BP diastolic 58–80
--- NOTE | 2018-09-10 07:23 | Progress Note ---
DATE: SUBJECTIVE: The patient is a 68-year-old male, comes in with atrial fibrillation, atrial flutter, due for cardioversion today by Dr. Ross. Currently asymptomatic. Had a lot of anxiety episodes yesterday. Clonazepam was given. Ativan was given. The patient did well after that. PHYSICAL EXAMINATION: VITAL SIGNS: Temperature is 97.9, pulse of 71, blood pressure is 102/62, and pulse oximeter of 98% on room air. HEENT: Normocephalic, atraumatic. Pupils are reactive to light and accommodation. CVS: S1, S2. Regular. ABDOMEN: Nontender, nondistended. EXTREMITIES: No clubbing, no cyanosis, no edema. LABORATORY VALUES: Yesterday were 12.3 and 36 hemoglobin and hematocrit. Today's chemistries are 135 sodium, potassium 5.1, chloride 102, BUN and creatinine 44 and 1.65. ASSESSMENT: Atrial fibrillation, atrial flutter. PLAN: Continue IV amiodarone. The patient is on Eliquis. Schedule for PASTOR and cardioversion today. Continue other medications. Further recommendation and clinical course, the patient has history of coronary artery disease, diabetes mellitus, and hypertension. We will continue all his CV medications. Anxiety, continue on clonazepam. MD GLEN DonnellyJ/MODL /[id number]
[2018-09-10] MEDS: INSULIN LISPRO 100 UNIT/1 ML 3ML VIAL SQ SCH ×4 (07:30→20:39)
[2018-09-10] MEDS: SPIRONOLACTONE 25 MG TAB PO SCH ×2 (08:17→16:59)
[2018-09-10] MEDS: PANTOPRAZOLE SOD 40 MG TABEC PO SCH ×2 (08:17→16:59)
[2018-09-10] MEDS: METOPROLOL TARTRATE 25 MG TAB PO SCH ×2 (08:17→17:00)
[2018-09-10] MEDS: FERROUS SULFATE 325 MG TAB PO SCH (08:17)
[2018-09-10] MEDS: AMIODARONE HCL 200 MG TAB PO SCH (08:17)
[2018-09-10] MEDS: FUROSEMIDE 40 MG TAB PO SCH (08:17)
[2018-09-10] MEDS: SOLIFENACIN SUCCINATE 5 MG TAB PO SCH (08:17)
[2018-09-10 08:35] LABS: ANION GAP 12.6 mmol/L (8-16); CALCIUM 9.6 mg/dL (8.4-10.2); CREATININE, SERUM 1.74 mg/dL (0.72-1.25); POTASSIUM 4.6 mmol/L (3.5-5.1)
[2018-09-10 09:10] LABS: BASOPHILS % 0.4 % (0.0-1.0); EOSINOPHILS # (AUTO) 0.1 (0.0-0.4); HEMATOCRIT 36.8 % (38.2-49.6); HEMOGLOBIN 12.5 g/dL (14.0-18.0); LYMPHOCYTES # (AUTO) 1.3 (1.0-3.2); LYMPHOCYTES % 15.9 % (18.0-39.1); MEAN CORPUSCULAR HEMOGLOBIN 29.9 pg (28-32); MONOCYTES # (AUTO) 0.6 (0.2-0.8); MONOCYTES % 7.2 % (4.4-11.3); NEUTROPHILS % 74.8 % (38.7-80.0); PLATELET COUNT 196 x10e3/uL (140-360); RED BLOOD COUNT 4.18 x10e6/uL (4.3-5.7); RED CELL DISTRIBUTION WIDTH 12.3 % (11.7-14.4)
[2018-09-10] MEDS ORDERED: BENZOCAINE 20% SPR 60 ML CAN ONE (14:04)
--- NOTE | 2018-09-10 14:29 | NUR ---
1358 - anesthesia Dr Solis speaking with pt then pt to endo 3. placed to monitor. observed right AC IV area red with mild tenderness. Flushes w/o resistance. IV to be used. 1405 - Preprocedural time out performed. confirmed zolls defib placement sternal and posterior. Oral bite block palced , Hurricaine spray to back of throat 1407 - Probe insertion 1409 - Several unsuccessful attempts to pass PASTOR probe by Dr. Cottrell, Dr López assisted with probe insertion 1411 - Probe removed. 1415 - Pt synchronized cardioversion @ 200 joules. 1417 - Dr López observed bruising to right side of uvala when removing bite block 1421 - pt transferred to ACU 10 with oral airway in place by AA. 1425 - Oral airway removed, neuro intact, no gross deficits observed. 1445 - alert and oriented, Dr Cottrell to see patient 1455 - report called to Anneliese RN, pt transported on monitor back to [facility]
[2018-09-10] MEDS ORDERED: PROPOFOL IV EMULSION 10 MG/ML 20 ML VIAL ONE (18:11)
[2018-09-10] MEDS ORDERED: LIDOCAINE HCL 2% LOCAL INJ 5 ML SDV VIAL INJ ONE (18:11)
[2018-09-10] MEDS ORDERED: FENTANYL CITRATE/PF 100MCG/2 ML INJ ONE (19:49)
[2018-09-10] MEDS: ATORVASTATIN 40 MG TAB PO SCH (20:39)
[2018-09-10] MEDS: INSULIN GLARGINE 100 UNITS/ML VIAL SQ SCH (20:40)
--- NOTE | 2018-09-10 21:15 | Operative Report ---
DATE OF PROCEDURE: SURGEON: Kofi Ross MD PROCEDURE: Transesophageal echocardiogram and cardioversion. COMPLICATIONS: None. INDICATION: Atrial flutter. TECHNIQUE: The patient was sedated by Anesthesiology. Transesophageal echocardiogram probe was passed and there was no thrombus in the left atrial appendage. The patient was then cardioverted with 200 joules of synchronized cardioversion from atrial flutter to normal sinus rhythm. CONCLUSION: Successful cardioversion from atrial flutter to normal sinus rhythm. Kofi Ross MD DSH/MODL /[id number] cc: Thom Finn MD
[2018-09-11 04:30] VITALS: BP 116/55
--- NOTE | 2018-09-11 07:05 | NUR ---
Report given to AM nurse,walking round done.
[2018-09-11 07:30] VITALS: BP 116/55
[2018-09-11 07:34] VITALS: BP 114/56
[2018-09-11] MEDS: INSULIN LISPRO 100 UNIT/1 ML 3ML VIAL SQ SCH (08:01)
[2018-09-11] MEDS: AMIODARONE HCL 200 MG TAB PO SCH (08:09)
[2018-09-11] MEDS: FUROSEMIDE 40 MG TAB PO SCH (08:09)
[2018-09-11] MEDS: FERROUS SULFATE 325 MG TAB PO SCH (08:09)
[2018-09-11] MEDS: SPIRONOLACTONE 25 MG TAB PO SCH (08:09)
[2018-09-11] MEDS: SOLIFENACIN SUCCINATE 5 MG TAB PO SCH (08:09)
[2018-09-11] MEDS: PANTOPRAZOLE SOD 40 MG TABEC PO SCH (08:09)
[2018-09-11] MEDS: METOPROLOL TARTRATE 25 MG TAB PO SCH (08:09)
--- NOTE | 2018-09-11 08:12 | NUR ---
MD'S ROUNDED WITH PT, PT STABLE. PER DR MUNSON, HE HAS GIVEN PT PRESCRIPTIONS. REVIEWED DC INSTRUCTIONS WITH PT AND SPOUSE, DC STABLE.
--- NOTE | 2018-09-11 09:53 | Progress Note ---
DATE: SUBJECTIVE: The patient is here for atrial flutter, status post cardioversion converted. The patient is doing good. No complaints. No chest pain. No shortness of breath. No nausea, vomiting, or diarrhea. Positive for little bit anxiety, but better. The patient was on steroid, has been stopped. Blood sugars are running in normal range at this time. MEDICATIONS: He is taking amiodarone, Eliquis, atorvastatin, Lasix, insulin glargine, metoprolol, pantoprazole, and Aldactone. OBJECTIVE: VITAL SIGNS: Temperature is 98.3, pulse of 70, blood pressure is 116/55, and pulse oximetry of 100% O2 on room air. HEENT: Normocephalic and atraumatic. Pupils are reactive to light and accommodation. CVS: S1 and S2 normal. Regular rate and rhythm. ABDOMEN: Nontender and nondistended. EXTREMITIES: No clubbing. No cyanosis. No edema. LABORATORY VALUES: Yesterday's labs were all within normal limits. Blood sugars are running in the 130s to 190s. Microbiology; blood cultures no growth in the last 48 hours. ASSESSMENT: Atrial fibrillation and atrial flutter, status post cardioversion, normal sinus rhythm now. PLAN: Restart back the patient on Eliquis. Restart back on p.o. amiodarone. Continue on CV medications and antidiabetic medications and antihypertensives. Continue with medicine for anxiety as needed. Further recommendation per clinical course, the patient can be discharged home if okay with Dr. Ross. MD DIOGENES Donnelly/ORIONL /[id number]
== END 2018-09-11 08:45 | disposition home or self-care (01) | DRG 309 ==
LOC: ER 19:15 → ERHOLD 23:06 → IMCU 09-08 00:48
PROVIDERS: ADMIT Family Medicine; ATTEND Family Medicine
PROC: 5A2204Z Restoration of Cardiac Rhythm, Single (ICD-10-PCS; principal; 2018-09-10)
DX: I48.92 Unspecified atrial flutter (principal); I13.0 Hypertensive heart and chronic kidney disease with heart failure and stage 1 through stage 4 chronic kidney disease, or unspecified chronic kidney disease; I50.32 Chronic diastolic (congestive) heart failure; N18.9 Chronic kidney disease, unspecified; I25.10 Atherosclerotic heart disease of native coronary artery without angina pectoris; I10 Essential (primary) hypertension; E78.5 Hyperlipidemia, unspecified; E11.22 Type 2 diabetes mellitus with diabetic chronic kidney disease; Z79.4 Long term (current) use of insulin; Z79.01 Long term (current) use of anticoagulants; Z95.2 Presence of prosthetic heart valve
CPT/HCPCS: 36415; 71045; 80048; 80053; 82550; 82553; 82948; 83880; 84484; 85025; 85610; 85651; 85730; 86140; 87040; 93005; 93312; 93320; 93325; 96365; 96372; 99284; J1815; J2001; J7512

== ENCOUNTER 2019-11-13 16:49 | Inpatient (IN) | payer MEDICARE, OTHER ==
[~2019-11-13] VITALS: Ht 170.2 cm; Wt 98.0 kg
[~2019-11-13 16:49] MED LIST changes: +LANTUS 3ML100 UNITS/ SQ
[2019-11-13 18:50] LABS: BASOPHILS % 0.4 % (0.0-1.0); EOSINOPHILS % 0.3 % (0.0-6.0); HEMATOCRIT 38.4 % (38.2-49.6); HEMOGLOBIN 13.1 g/dL (14.0-18.0); LYMPHOCYTES % 10.5 % (18.0-39.1); MEAN CORPUSCULAR HEMOGLOBIN 30.8 pg (28-32); MEAN CORPUSCULAR HGB CONC 34.1 g/dL (31-35); MEAN CORPUSCULAR VOLUME 90.4 fL (81-99); MONOCYTES % 10.7 % (4.4-11.3); NEUTROPHILS # (AUTO) 7.1 (2.1-6.9); NEUTROPHILS % 76.5 % (38.7-80.0); PLATELET COUNT 231 x10e3/uL (140-360); RED BLOOD COUNT 4.25 x10e6/uL (4.3-5.7); RED CELL DISTRIBUTION WIDTH 12.9 % (11.7-14.4)
[2019-11-13 18:53] LABS: BILIRUBIN,URINE NEGATIVE (NEGATIVE); CLARITY,URINE CLEAR (CLEAR); COLOR,URINE YELLOW (YELLOW); KETONES,URINE NEGATIVE (NEGATIVE); LEUKOCYTE ESTERASE ,URINE NEGATIVE (NEGATIVE); NITRITE,URINE NEGATIVE (NEGATIVE); PROTEIN,URINE DIPSTICK NEGATIVE (NEGATIVE); URINE UROBILINOGEN 0.2 mg/dL (0.2 - 1)
[2019-11-13 19:02] LABS: ALBUMIN 3.9 g/dL (3.5-5.0); ALBUMIN/GLOBULIN RATIO 1.3 (0.8-2.0); ANION GAP 17.2 mmol/L (8-16); CALCIUM 9.7 mg/dL (8.4-10.2); CREATININE, SERUM 2.46 mg/dL (0.72-1.25); POTASSIUM 5.2 mmol/L (3.5-5.1)
[2019-11-13 19:10] LABS: CREATINE KINASE MB 1.8 ng/mL (0-5.0)
[2019-11-13 19:11] LABS: EPITHELIAL CELLS,URINE RARE /LPF
--- NOTE | 2019-11-13 19:21 | Diagnostic Imaging Report ---
Examination: Single AP view of the chest. COMPARISON: 09/07/18. INDICATION: Cough. DISCUSSION: Lines/tubes: None. Lungs: The lungs are well inflated and clear. No pneumonia or pulmonary edema. Pleura: No pleural effusion or pneumothorax. Heart and mediastinum: The heart and the mediastinum are unremarkable. Bones and soft tissues: No acute bony abnormalities. Degenerative changes in the thoracic spine. Median sternotomy wires and clips. IMPRESSION: 1. No acute thoracic abnormality. Signed by: Dr. Josiah Ramsay M.D. on 11/13/2019 7:17 PM
[2019-11-13 20:36] LABS: INR 0.88; PROTHROMBIN TIME 9.9 seconds (11.9-14.5)
[2019-11-13 20:37] LABS: PARTIAL THROMBOPLASTIN TIME 25.8 seconds (23.8-35.5)
--- NOTE | 2019-11-13 21:26 | Emergency Department Note ---
History of Present Illnes History of Present Illness Chief Complaint: Genitourinary History of Present Illness This is a 69 year old male sent by PCP for evaluation of tremors . Sent by PCP for evaluation of hyperkalemia and renal insufficiency Historian: Patient Arrival Mode: Car Severity: mild Onset quality: gradual Past Medical/Family History Physician Review I have reviewed the patient's past medical and family history. Any updates have been documented here. Past Medical History Recent Fever: No Clinical Suspicion of Infectio: No New/Unexplained Change in Ment: No Past Medical History: Hypertension, Diabetes, CAD, Hyperlipedemia Other Medical History: OBESITY Past Surgical History: CABG Other Surgery: surgey left arm due to on the job injury cardiac bypass surgery PORCINE AORTIC VALVE REPLACEMENT Social History Physically hurt or threatened: No Other Last Tetanus: unk Review of Systems Review of Systems Constitutional: Reports weakness EENTM: Reports no symptoms Cardiovascular: Reports no symptoms Respiratory: Reports no symptoms Gastrointestinal: Reports no symptoms Genitourinary: Reports no symptoms Musculoskeletal: Reports no symptoms Integumentary: Reports no symptoms Neurological: Reports no symptoms Psychological: Reports no symptoms Endocrine: Reports no symptoms Hematological/Lymphatic: Reports no symptoms Physical Exam Related Data Allergies: Coded Allergies: No Known Allergies (Unverified , 01/09/18) Triage Vital Signs Vital Signs Date Time Temp Pulse Resp B/P (MAP) Pulse Ox O2 Delivery O2 Flow Rate FiO2 11/13/19 17:19 99.5 72 18 110/64 95 Room Air Vital signs reviewed: Yes Physical Exam CONSTITUTIONAL Constitutional: Present well-developed, Present well-nourished HENT HENT: Present normocephalic, Present atraumatic, Present oropharynx clear/moist, Present nose normal HENT L/R: Present left ext ear normal, Present right ext ear normal EYES Eyes: Reports PERRL, Reports conjunctivae normal NECK Neck: Present ROM normal PULMONARY Pulmonary: Present effort normal, Present breath sounds normal CARDIOVASCULAR Cardiovascular: Present regular rhythm, Present heart sounds normal, Present capillary refill normal, Present normal rate GASTROINTESTINAL Abdominal: Present soft, Present nontender, Present bowel sounds normal GENITOURINARY Genitourinary: Present exam deferred SKIN Skin: Present warm, Present dry, Present other (old echmyosses b/l LE) MUSCULOSKELETAL Musculoskeletal: Present ROM normal NEUROLOGICAL Neurological: Present alert, Present oriented x 3, Present no gross motor or sensory deficits PSYCHOLOGICAL Psychological: Present mood/affect normal, Present judgement normal Results Laboratory Result Diagram: 11/13/19 1745 11/13/19 1745 Laboratory Laboratory Tests Test 11/13/19 18:10 11/13/19 17:45 Urine Color Yellow (YELLOW) Urine Clarity Clear (CLEAR) Urine pH 5.5 (5 - 7) Urine Specific [employer] 1.020 (1.010-1.025) Urine Protein Negative (NEGATIVE) Urine Glucose (UA) Negative (NEGATIVE) Urine Ketones Negative (NEGATIVE) Urine Blood Negative (NEGATIVE) Urine Nitrite Negative (NEGATIVE) Urine Bilirubin Negative (NEGATIVE) Urine Urobilinogen 0.2 mg/dL (0.2 - 1) Urine Leukocyte Esterase Negative (NEGATIVE) Urine RBC None /HPF (0-5) Urine WBC None /HPF (0-5) Urine Epithelial Cells Rare /LPF (NONE) Urine Bacteria None /HPF (NONE) White Blood Count 9.33 x10e3/uL (4.8-10.8) Red Blood Count 4.25 x10e6/uL (4.3-5.7) Hemoglobin 13.1 g/dL (14.0-18.0) Hematocrit 38.4 % (38.2-49.6) Mean Corpuscular Volume 90.4 fL (81-99) Mean Corpuscular Hemoglobin 30.8 pg (28-32) Mean Corpuscular Hemoglobin Concent 34.1 g/dL (31-35) Red Cell Distribution Width 12.9 % (11.7-14.4) Platelet Count 231 x10e3/uL (140-360) Neutrophils (%) (Auto) 76.5 % (38.7-80.0) Lymphocytes (%) (Auto) 10.5 % (18.0-39.1) Monocytes (%) (Auto) 10.7 % (4.4-11.3) Eosinophils (%) (Auto) 0.3 % (0.0-6.0) Basophils (%) (Auto) 0.4 % (0.0-1.0) Neutrophils # (Auto) 7.1 (2.1-6.9) Lymphocytes # (Auto) 1.0 (1.0-3.2) Monocytes # (Auto) 1.0 (0.2-0.8) Eosinophils # (Auto) 0.0 (0.0-0.4) Basophils # (Auto) 0.0 (0.0-0.1) Absolute Immature Granulocyte (auto 0.15 x10e3/uL (0-0.1) Prothrombin Time 9.9 seconds (11.9-14.5) Prothromb Time International Ratio 0.88 Activated Partial Thromboplast Time 25.8 seconds (23.8-35.5) Sodium Level 134 mmol/L (136-145) Potassium Level 5.2 mmol/L (3.5-5.1) Chloride Level 97 mmol/L (98-107) Carbon Dioxide Level 25 mmol/L (22-29) Anion Gap 17.2 mmol/L (8-16) Blood Urea Nitrogen 76 mg/dL (7-26) Creatinine 2.46 mg/dL (0.72-1.25) Estimat Glomerular Filtration Rate 26 ML/MIN (60-) BUN/Creatinine Ratio 31 (6-25) Glucose Level 78 mg/dL (74-118) Calcium Level 9.7 mg/dL (8.4-10.2) Total Bilirubin 0.5 mg/dL (0.2-1.2) Aspartate Amino Transf (AST/SGOT) 18 IU/L (5-34) Alanine Aminotransferase (ALT/SGPT) 19 IU/L (0-55) Alkaline Phosphatase 81 IU/L (40-150) Creatine Kinase 70 IU/L (30-200) Creatine Kinase MB 1.80 ng/mL (0-5.0) Troponin I 0.034 ng/mL (0-0.300) B-Type Natriuretic Peptide 27.9 pg/mL (0-100) Total Protein 7.0 g/dL (6.5-8.1) Albumin 3.9 g/dL (3.5-5.0) Globulin 3.1 g/dL (2.3-3.5) Albumin/Globulin Ratio 1.3 (0.8-2.0) Thyroid Stimulating Hormone (TSH) 2.861 uIU/mL (0.350-4.940) Assessment & Plan Assessment & Plan Final Impression: (1) Hyperkalemia (2) Renal insufficiency Depart Disposition: ADMITTED Last Vital Signs Date Time Temp Pulse Resp B/P (MAP) Pulse Ox O2 Delivery O2 Flow Rate FiO2 11/13/19 17:19 99.5 72 18 110/64 95 Room Air Home Meds Reported Medications Insulin Lispro (HUMALOG) 100 Unit/1 Ml Cartridge, SQ TID 09/08/18 Insulin Glargine (LANTUS 3ML PEN) 100 Units/1 Ml Inj, 30 SQ HS 09/08/18 Amiodarone Hcl (AMIODARONE HCL) 200 Mg Tablet, 1 TAB PO DAILY 06/30/18 Solifenacin Succinate (VESICARE) 5 Mg Tablet, 10 MG PO DAILY, #30 TAB 06/30/18 Spironolactone (SPIRONOLACTONE) 25 Mg Tablet, 25 MG PO BID, #60 TAB 06/30/18 Ferrous Sulfate (FERROUS SULFATE) 325 Mg Tablet, 1 TAB PO DAILY 06/30/18 Omeprazole (OMEPRAZOLE) 40 Mg Capsule.dr, 1 CAP PO BID 06/30/18 Prednisone (PREDNISONE) 10 Mg Tab, 10 MG PO DAILY, TAB 06/30/18 Atorvastatin Calcium (LIPITOR) 20 Mg Tablet, 80 MG PO DAILY, #30 TAB 06/30/18 Metoprolol Tartrate (METOPROLOL TARTRATE) 25 Mg Tablet, 25 MG PO BID, TAB 06/30/18 [eliqus] No Conflict Check, 2.5 MG PO DAILY 06/30/18 Furosemide (LASIX) 40 Mg Tablet, 40 MG PO DAILY, #30 TAB 06/30/18 Benzonatate (BENZONATATE) 100 Mg Capsule, 100 MG PO TID, CAP 06/30/18 Medications in the ED Sodium Chloride 1,000 ml @ 100 mls/hr Q10H IV ; Start 11/13/19 at 18:30; Stop 11/15/19 at 00:29 FABY STODDARD DO Nov 13, 2019 21:26
[2019-11-13 22:49] VITALS: BP 126/88
[2019-11-13 23:00] VITALS: BP 126/88
[2019-11-14] VITALS (8 sets, daily range): BP systolic 109–133; BP diastolic 46–88
[2019-11-14] MEDS: SODIUM CHLORIDE 0.9% 1000ML 1,000 ML IV SCH ×3 (02:31→14:24)
--- NOTE | 2019-11-14 03:06 | NUR ---
Attempted to call Dr. Elizabeth twice to notify him of the potassium level of 5.2 on the patient. Unable to get a response. Busy signal/ Will attempt again in the morning.
--- NOTE | 2019-11-14 04:45 | NUR ---
LEFT MESSAGE FOR dR. Pina TO CALL BACK FOR NEW ADMISSION/ORDERS.
[2019-11-14 05:40] LABS: BASOPHILS % 0.5 % (0.0-1.0); EOSINOPHILS % 0.5 % (0.0-6.0); HEMATOCRIT 35.3 % (38.2-49.6); LYMPHOCYTES # (AUTO) 0.9 (1.0-3.2); LYMPHOCYTES % 14.8 % (18.0-39.1); MEAN CORPUSCULAR HEMOGLOBIN 30.8 pg (28-32); MEAN CORPUSCULAR VOLUME 90.5 fL (81-99); MONOCYTES # (AUTO) 0.7 (0.2-0.8); MONOCYTES % 11.2 % (4.4-11.3); NEUTROPHILS # (AUTO) 4.4 (2.1-6.9); NEUTROPHILS % 71.9 % (38.7-80.0); PLATELET COUNT 152 x10e3/uL (140-360); RED CELL DISTRIBUTION WIDTH 12.7 % (11.7-14.4)
[2019-11-14 06:25] LABS: ALBUMIN 3.4 g/dL (3.5-5.0); ALBUMIN/GLOBULIN RATIO 1.3 (0.8-2.0); ANION GAP 14.7 mmol/L (8-16); CALCIUM 8.7 mg/dL (8.4-10.2); CREATININE, SERUM 2.28 mg/dL (0.72-1.25); POTASSIUM 4.7 mmol/L (3.5-5.1)
[2019-11-14] MEDS ORDERED: DEXTROSE 50% SYRINGE 50 ML IV PRN (06:30)
[2019-11-14] MEDS ORDERED: ACETAMINOPHEN 325 MG TAB PO PRN (06:30)
[2019-11-14] MEDS: INSULIN LISPRO 100 UNIT/1 ML 3ML VIAL SQ SCH ×5 (07:30→21:00)
[2019-11-14] MEDS: PANTOPRAZOLE SOD 40 MG TABEC PO SCH ×2 (07:30→16:55)
--- NOTE | 2019-11-14 08:00 | NUR ---
Janitorial Account Manager placed call to Dr. Kuhn for consult.
[2019-11-14] MEDS: AMIODARONE HCL 200 MG TAB PO SCH (08:19)
[2019-11-14] MEDS: APIXAB 2.5 MG TABLET PO SCH (08:20)
[2019-11-14] MEDS: BENZONATATE 100 MG CAP PO SCH ×3 (08:20→21:06)
[2019-11-14] MEDS: FERROUS SULFATE 325 MG TAB PO SCH (08:20)
[2019-11-14] MEDS: SOLIFENACIN SUCCINATE 5 MG TAB PO SCH (08:20)
[2019-11-14] MEDS: METOPROLOL TARTRATE 25 MG TAB PO SCH ×2 (08:20→17:23)
--- NOTE | 2019-11-14 09:41 | NUR ---
A second call was placed to Dr. Kuhn to notify od consult. I spoke with Mariah and reports that she will let the know of the consult
--- NOTE | 2019-11-14 14:52 | NUR ---
Dr. Kuhn visited this afternoon and new orders received.
--- NOTE | 2019-11-14 15:22 | NUR ---
The pt. was instructed to call with his next void for spec collection.
--- NOTE | 2019-11-14 15:25 | Diagnostic Imaging Report ---
EXAM: Renal Ultrasound INDICATION: ^JOSE MARTIN COMPARISON: None TECHNIQUE: Transverse and longitudinal images of the kidneys and bladder were obtained. FINDINGS: Right Kidney: Length: 9.8 cm Appearance: Normal echogenicity. Collecting system: No hydronephrosis Stones: None Cyst/Mass: None Left Kidney: Length: 9.6 cm Appearance: Normal echogenicity. Collecting system: No hydronephrosis Stones: None Cyst/Mass: Mid pole 2.2 x 1.7 x 1.7 cm anechoic simple cyst. Bladder: No mass or calculi. Bilateral ureteral jets visualized. Prevoid volume estimate of 195-cc. The prostate appears unremarkable. IMPRESSION: No hydronephrosis or renal calculi. Left renal simple cyst. Signed by: Benjie Wyman MD on 11/14/2019 3:22 PM
[2019-11-14 16:34] LABS: CREATININE,URINE RANDOM 49.19 mg/dL (63-166)
[2019-11-14 16:35] LABS: TOTAL PROTEIN, URINE < 6.8 mg/dL (1-14)
[2019-11-14 16:36] LABS: CLARITY,URINE SL CLOUDY (CLEAR); COLOR,URINE YELLOW (YELLOW); LEUKOCYTE ESTERASE ,URINE NEGATIVE (NEGATIVE); NITRITE,URINE NEGATIVE (NEGATIVE); PROTEIN,URINE DIPSTICK NEGATIVE (NEGATIVE)
[2019-11-14 16:37] LABS: BILIRUBIN,URINE NEGATIVE (NEGATIVE); KETONES,URINE NEGATIVE (NEGATIVE); URINE UROBILINOGEN 0.2 mg/dL (0.2 - 1)
[2019-11-14 16:40] LABS: EPITHELIAL CELLS,URINE RARE /LPF
--- NOTE | 2019-11-14 19:20 | NUR ---
Received patient awake, not in distress, call light within easy reach, advised to call for assistance anytime when needed, will continue to monitor patient
--- NOTE | 2019-11-14 21:01 | Consultation ---
DATE OF CONSULTATION: 11/14/2019 REASON FOR CONSULTATION: Acute kidney injury. HISTORY OF PRESENT ILLNESS: 69-year-old white gentleman underlying history of coronary artery disease, status post coronary artery bypass surgery, history of diabetes and hypertension, history of prior A-flutter with rapid ventricular rate, history of hyperlipidemia, history of prior cardioversion, history of aortic valve replacement 2016, history of endocarditis, history of Staphylococcus bacteremia, history of crush injury to left arm when 16 years old with residual damage. Baseline creatinine 1.7 as August 2018. Currently, awake, alert, lying supine, in no apparent distress. Denies any nausea, vomiting, shortness of breath. ALLERGIES: NO APPARENT DRUG ALLERGIES. MEDICATIONS: He is currently on VESIcare 10 mg p.o. daily, pantoprazole b.i.d., metoprolol 25 b.i.d. He is on Tessalon Perles. He is on Eliquis 2.5 mg p.o. daily. Atorvastatin 80 mg at bedtime. Amiodarone 200 mg daily. Currently receiving IV normal saline at 100 mL an hour. SOCIAL HISTORY: Does not smoke. Used to smoke and drink, quit 30 years ago. FAMILY HISTORY: Significant for hypertension. PHYSICAL EXAMINATION: GENERAL: Awake, alert, oriented x3, lying down, no apparent distress. VITAL SIGNS: Blood pressure 118/59, pulse rate 57, afebrile, oxygen saturation 96% on room air. HEAD AND NECK: Cornea clear. Oral mucosa moist. LUNGS: Decreased air entry at bases. Scattered rales, occasional right base more than left. HEART: S1, S2 audible. ABDOMEN: Otherwise soft, nontender. Distended abdomen, flanks full. EXTREMITIES: Lower extremities, no edema. LABORATORY DATA: White count 6, hemoglobin 12. Sodium 133, potassium 4.7, bicarbonate 24, BUN 66, creatinine 2.2. Total protein 6, globulin 2.6. IMPRESSION: 1. Underlying diabetes. 2. Hypertension, appears euvolemic. Blood pressure is stable. 3. Underlying chronic kidney disease 3, most likely with a baseline creatinine 1.8 as of 2018, now with acute on chronic kidney failure. I suspect progression of underlying renal disease. PLAN: Plan on obtaining urinalysis, urine protein-creatinine ratio, kidney ultrasound, chemistries. Continue with IV fluids. Please see orders. MD KIMBERLEE Chao/MAYRA /[id number]
[2019-11-14] MEDS: ATORVASTATIN 40 MG TAB PO SCH (21:05)
[2019-11-14] MEDS: INSULIN GLARGINE 100 UNITS/ML VIAL SQ SCH (21:13)
[2019-11-15] VITALS (8 sets, daily range): BP systolic 109–144; BP diastolic 66–89
--- NOTE | 2019-11-15 01:06 | History and Physical ---
HISTORY OF PRESENT ILLNESS: The patient is a 69-year-old gentleman, who was sent to the ER secondary to hyperkalemia and acute renal insufficiency. PAST MEDICAL HISTORY: History of coronary artery disease, status post CABG, hyperlipidemia, history of iron-deficiency anemia, history of diabetes with chronic renal failure, history of hypertension, history of reflux esophagitis, and history of atrial fibrillation. MEDICATIONS: At home, amiodarone 200 mg daily, atorvastatin 20 mg daily, benzonatate 100 mg 3 times a day, glargine 30 units at nighttime, metoprolol 25 mg twice a day, omeprazole 40 mg twice a day, VESIcare 5 mg once a day. FAMILY HISTORY: Positive for diabetes mellitus in a brother, stroke in mother and father with history of cirrhosis of the liver. REVIEW OF SYSTEMS: Negative for chest pain. No shortness of breath. No nausea, vomiting, or diarrhea. Generalized fatigue and generalized weakness. No diplopia. No blurry vision. No headaches. No paresthesias. No hyperesthesias. ALLERGIES: NO DRUG ALLERGIES EITHER. PHYSICAL EXAMINATION: GENERAL: The patient is alert and oriented x3, feeling much better compared to yesterday, is being getting IV fluids. HEENT: Normocephalic, atraumatic. Pupils are reactive to light and accommodation. CVS: S1 and S2 normal. Regular rate and rhythm. ABDOMEN: Soft, nontender. EXTREMITIES: No clubbing, no cyanosis, no edema. LABORATORY VALUES: Initial white count is 9.33, hemoglobin of 13.7, hematocrit of 38.4, no left shift present. Chemistry shows sodium 133, BUN of 76 and creatinine is 2.46 with the EGFR of 26. The rest of the labs are within normal limits. Sodium of 134, potassium 5.2. Potassium at the clinic was about 6.7. Chemistry shows sodium 133, BUN of 66, creatinine of 2.28. MEDICATIONS: Currently, the patient is back on all of his home medications except for his omeprazole, which has been held back. The patient is getting normal saline at 100 mL an hour. ASSESSMENT: Mr. Steven Medrano with: 1. Acute kidney injury. 2. Chronic kidney injury. 3. Coronary artery disease. 4. Hypertension. 5. Uncontrolled diabetes mellitus. 6. Hyperlipidemia. PLAN: 1. Continue with fluid resuscitation, looks more prerenal. 2. Continue with all medications including his insulin. The patient is already looking better. Consult with Dr. Kuhn has been done. Renal ultrasound has been ordered. Renal ultrasound shows no hydronephrosis, left renal simple cyst, bladder with bilateral ureteral jet visualized and prevoid volume estimate is 195 mL. Plan is to continue same regimen. Follow up with his creatinine tomorrow. Further recommendation per clinical course. MD DIOGENES Donnelly/MAYRA /[id number]
[2019-11-15 05:57] LABS: BASOPHILS % 0.5 % (0.0-1.0); EOSINOPHILS % 0.7 % (0.0-6.0); HEMATOCRIT 34.5 % (38.2-49.6); HEMOGLOBIN 11.7 g/dL (14.0-18.0); LYMPHOCYTES # (AUTO) 0.8 (1.0-3.2); LYMPHOCYTES % 13.6 % (18.0-39.1); MEAN CORPUSCULAR HEMOGLOBIN 31.4 pg (28-32); MEAN CORPUSCULAR HGB CONC 33.9 g/dL (31-35); MEAN CORPUSCULAR VOLUME 92.5 fL (81-99); MONOCYTES # (AUTO) 0.7 (0.2-0.8); MONOCYTES % 11.5 % (4.4-11.3); NEUTROPHILS # (AUTO) 4.3 (2.1-6.9); NEUTROPHILS % 72.9 % (38.7-80.0); PLATELET COUNT 141 x10e3/uL (140-360); RED BLOOD COUNT 3.73 x10e6/uL (4.3-5.7); RED CELL DISTRIBUTION WIDTH 12.4 % (11.7-14.4)
[2019-11-15 06:39] LABS: ALBUMIN 3.1 g/dL (3.5-5.0); ALBUMIN/GLOBULIN RATIO 1.2 (0.8-2.0); ANION GAP 10.1 mmol/L (8-16); CALCIUM 8.5 mg/dL (8.4-10.2); POTASSIUM 5.1 mmol/L (3.5-5.1)
[2019-11-15] MEDS: PANTOPRAZOLE SOD 40 MG TABEC PO SCH ×2 (08:36→17:12)
[2019-11-15] MEDS: INSULIN LISPRO 100 UNIT/1 ML 3ML VIAL SQ SCH ×4 (08:37→21:45)
[2019-11-15] MEDS: METOPROLOL TARTRATE 25 MG TAB PO SCH ×2 (08:37→17:12)
[2019-11-15] MEDS: SOLIFENACIN SUCCINATE 5 MG TAB PO SCH (08:37)
[2019-11-15] MEDS: APIXAB 2.5 MG TABLET PO SCH (08:37)
[2019-11-15] MEDS: BENZONATATE 100 MG CAP PO SCH ×3 (08:37→20:34)
[2019-11-15] MEDS: FERROUS SULFATE 325 MG TAB PO SCH (08:37)
[2019-11-15] MEDS: AMIODARONE HCL 200 MG TAB PO SCH (08:37)
--- NOTE | 2019-11-15 11:08 | Progress Note ---
DATE: 11/15/2019 Nephrology Followup Note SUBJECTIVE: The patient did not appear to be in any acute distress and denied any nausea, vomiting, chest pain, or shortness of breath. I's and O's were 1200 in and 750 out. OBJECTIVE: VITAL SIGNS: Blood pressure 133/83, respirations 19, heart rate 67, temperature 97.9. CHEST: Revealed fair air entry. HEART: S1, S2. ABDOMEN: Soft. Bowel sounds are positive. EXTREMITIES: No edema. 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 No neuro deficits noted. LAB DATA: White cell count 5.9, hemoglobin 11.7, hematocrit 34.5, platelets 141. Sodium 137, potassium 5.1, chloride 106, CO2 26, BUN 45, creatinine 2, it was 2.28 yesterday and 2.5 the day before. IMPRESSION: 1. Acute kidney injury with improving serum creatinine, most likely secondary to prerenal azotemia. 2. Stable electrolytes, metabolic profile and volume status. PLAN: Continue present treatment. Check BMP in a.m. No new further recommendations at this time. Yovani Gillette MD SA/MODL /[id number]
--- NOTE | 2019-11-15 18:20 | Progress Note ---
DATE: SUBJECTIVE: The patient is a 69-year-old male who came in with acute renal failure and history of chronic renal failure. The patient also had nausea, vomiting, and feeling of fatigue and clamminess. The patient currently is doing better. IV hydration has been stopped at this time. The patient is found to have prerenal azotemia with acidosis currently stable. OBJECTIVE: VITAL SIGNS: Temperature is 97.4, pulse 65, respirations of 19, blood pressure is 144/89, and pulse oximetry of 94%. HEENT: Normocephalic and atraumatic. Pupils are reactive. CVS: S1 and S2 normal. Ejection systolic murmur grade 3. ABDOMEN: Nontender, nondistended. EXTREMITIES: No clubbing. No cyanosis. There is trace amount of edema. MEDICATIONS: The patient is currently on insulin 2.4, VESIcare 10 mg, metoprolol 25 mg twice a day, ferrous sulfate 325 mg, benzonatate, amiodarone 200 mg daily, insulin glargine 30 units at nighttime, and acetaminophen as needed. IV fluid has been held. LABORATORY VALUES: White count is 5.90, hemoglobin is 11.7, hematocrit of 34.5, and platelet count is 141. Chemistry shows sodium 137, potassium is 5.1, BUN of 45, and creatinine of 2.0, GFR 33, CO2 is 26, and glucose is running between 206-278. IMAGING STUDIES: As mentioned above, renal ultrasound was normal. ASSESSMENT: Mr. Steven Medrano with, 1. Prerenal azotemia. 2. Acute kidney injury. 3. Chronic kidney injury. 4. Diabetes mellitus, uncontrolled. 5. Hypertension. 6. Hyperlipidemia. 7. Coronary artery disease. PLAN: Fluids have been held. Labs have been ordered for tomorrow. Possible discharge tomorrow. Further recommendation per clinical course. We will continue to monitor the patient and discharge the patient in the morning. We will hold back on the diuretics for right now. MD GLEN DonnellyJ/MODL /[id number]
--- NOTE | 2019-11-15 19:22 | NUR ---
Patient received sitting up in bed. AAO x 4. Patient had no complaints of pain. Respirations even and non-labored. Safety measures in place. Patient instructed to call for assistance when needed. Call light within reach.
[2019-11-15] MEDS: ATORVASTATIN 40 MG TAB PO SCH (20:34)
[2019-11-15] MEDS: INSULIN GLARGINE 100 UNITS/ML VIAL SQ SCH (21:45)
[2019-11-16] VITALS (7 sets, daily range): BP systolic 111–137; BP diastolic 58–72
[2019-11-16 06:35] LABS: ANION GAP 11.7 mmol/L (8-16); CALCIUM 8.8 mg/dL (8.4-10.2); CREATININE, SERUM 1.75 mg/dL (0.72-1.25); POTASSIUM 4.7 mmol/L (3.5-5.1)
--- NOTE | 2019-11-16 07:37 | Progress Note ---
DATE: SUBJECTIVE: The patient came in with acute kidney injury, prerenal azotemia. The patient is currently doing well. No chest pains. No shortness of breath. OBJECTIVE: VITAL SIGNS: Temperature is 98.0, pulse of 60, respirations of 20, and blood pressure is 116/66. HEENT: Normocephalic and atraumatic. Pupils are reactive. CVS: S1 and S2 normal. Ejection systolic murmur. ABDOMEN: Soft and nontender. EXTREMITIES: No clubbing. No cyanosis. No edema. LABORATORY VALUES: From today show a sodium of 138, potassium of 4.7, BUN of 34, creatinine of 1.97, and EGFR of 39 currently. ASSESSMENT: 1. Prerenal azotemia. 2. Acute kidney injury. 3. Baseline chronic kidney injury. 4. Diabetes mellitus. 5. Hypertension. 6. Coronary artery disease, status post coronary artery bypass grafting. PLAN: Continue same program. Discharge today if okay with Renal. We will hold back on the diuretics at this time and restart later in the clinic. Further recommendation per clinical course. MD GLEN DonnellyJ/MODL /[id number]
[2019-11-16] MEDS: PANTOPRAZOLE SOD 40 MG TABEC PO SCH ×2 (08:42→16:53)
[2019-11-16] MEDS: FERROUS SULFATE 325 MG TAB PO SCH (08:43)
[2019-11-16] MEDS: AMIODARONE HCL 200 MG TAB PO SCH (08:43)
[2019-11-16] MEDS: BENZONATATE 100 MG CAP PO SCH ×3 (08:43→20:14)
[2019-11-16] MEDS: INSULIN LISPRO 100 UNIT/1 ML 3ML VIAL SQ SCH ×4 (08:43→23:38)
[2019-11-16] MEDS: METOPROLOL TARTRATE 25 MG TAB PO SCH ×2 (08:43→16:54)
[2019-11-16] MEDS: SOLIFENACIN SUCCINATE 5 MG TAB PO SCH (08:43)
[2019-11-16] MEDS: APIXAB 2.5 MG TABLET PO SCH (08:43)
[2019-11-16] MEDS: ATORVASTATIN 40 MG TAB PO SCH (20:14)
[2019-11-16] MEDS: INSULIN GLARGINE 100 UNITS/ML VIAL SQ SCH (23:38)
[2019-11-17] VITALS: BP 119/56
[2019-11-17 04:00] VITALS: BP 117/50
--- NOTE | 2019-11-17 07:00 | NUR ---
Patient resting comfortably. Bed-side report given to oncoming nurse.
[2019-11-17 07:44] LABS: ANION GAP 10.7 mmol/L (8-16); CALCIUM 8.8 mg/dL (8.4-10.2); CREATININE, SERUM 1.72 mg/dL (0.72-1.25); POTASSIUM 4.7 mmol/L (3.5-5.1)
[2019-11-17 08:00] VITALS: BP 117/50
--- NOTE | 2019-11-17 08:00 | NUR ---
BMP results were called to Dr. John. TAMAYO to continue with discharge home.
[2019-11-17 08:32] VITALS: BP 132/60
--- NOTE | 2019-11-17 09:26 | Progress Note ---
DATE: SUBJECTIVE: The patient is a 69-year-old gentleman, who came in with acute renal failure, who with dehydration and generalized fatigue and malaise. The patient is currently feeling better. Still has some fatigue left currently. No chest pain. No shortness of breath and is feeling better with fluid resuscitation. OBJECTIVE: VITAL SIGNS: Temperature is 98.6, pulse of 56, respirations of 20, blood pressure is 117/50, and pulse oximetry of 97%. HEENT: Normocephalic and atraumatic. Pupils are reactive to light and accommodation. CVS: S1 and S2 normal. Regular rate and rhythm. LUNGS: Clear. ABDOMEN: Soft, nontender, nondistended. EXTREMITIES: With multiple ecchymosis, otherwise no clubbing, no cyanosis, no edema. LABORATORY VALUES: Chemistries; show a BUN of 34 and creatinine of 1.75. Coronavirus is still pending. ASSESSMENT: Mr. Steven Medrano with: 1. Acute renal failure. 2. Chronic renal failure. 3. Prerenal azotemia. 4. Coronary artery disease. 5. Hypertension. 6. Diabetes mellitus, uncontrolled. PLAN: 1. Continue monitoring. 2. The patient can be discharged home. 3. We will hold back on the diuretics for right now until I see the patient back on . The patient is advised to limit his water intake to 1.5 L. 4. Further recommendation per clinical course. We will continue to monitor the patient. MD DIOGENES Donnelly/MODL /[id number]
== END 2019-11-17 09:25 | disposition home or self-care (01) | DRG 641 ==
LOC: ER 18:51 → ERHOLD 18:52 → MED/SURG2 22:45
PROVIDERS: ADMIT Family Medicine; ATTEND Family Medicine
DX: E87.5 Hyperkalemia (principal); N17.9 Acute kidney failure, unspecified; D50.9 Iron deficiency anemia, unspecified; K21.9 Gastro-esophageal reflux disease without esophagitis; I48.91 Unspecified atrial fibrillation; Z79.01 Long term (current) use of anticoagulants; I25.10 Atherosclerotic heart disease of native coronary artery without angina pectoris; Z95.1 Presence of aortocoronary bypass graft; E78.5 Hyperlipidemia, unspecified; E11.22 Type 2 diabetes mellitus with diabetic chronic kidney disease; E11.65 Type 2 diabetes mellitus with hyperglycemia; I12.9 Hypertensive chronic kidney disease with stage 1 through stage 4 chronic kidney disease, or unspecified chronic kidney disease; N18.3 Chronic kidney disease, stage 3 (moderate); Z79.4 Long term (current) use of insulin; Z11.59 Encounter for screening for other viral diseases
CPT/HCPCS: 36415; 71045; 76770; 80048; 80053; 81001; 82550; 82553; 82570; 82948; 83880; 84156; 84443; 84484; 85025; 85610; 85730; 87040; 87086; 87635; 93005; 99284; J1815; J7030

== ENCOUNTER 2021-01-06 16:39 | Inpatient (IN) | payer MEDICARE, OTHER ==
[~2021-01-06] VITALS: Ht 170.2 cm; Wt 105.2 kg
[2021-01-06] MEDS ORDERED: SODIUM CHLORIDE 0.9% 1000ML 1,000 ML IV STA ×3 (17:07→19:58)
[2021-01-06] MEDS ORDERED: ASPIRIN 81 MG CHEW TAB PO ONE (17:15)
[2021-01-06 18:02] LABS: BASOPHILS % 0.3 % (0.0-1.0); EOSINOPHILS # (AUTO) 0.1 (0.0-0.4); EOSINOPHILS % 0.5 % (0.0-6.0); HEMATOCRIT 28.4 % (38.2-49.6); HEMOGLOBIN 9.7 g/dL (14.0-18.0); LYMPHOCYTES # (AUTO) 0.6 (1.0-3.2); LYMPHOCYTES % 6.1 % (18.0-39.1); MEAN CORPUSCULAR HEMOGLOBIN 31.9 pg (28-32); MEAN CORPUSCULAR HGB CONC 34.2 g/dL (31-35); MEAN CORPUSCULAR VOLUME 93.4 fL (81-99); MONOCYTES # (AUTO) 0.6 (0.2-0.8); MONOCYTES % 5.7 % (4.4-11.3); NEUTROPHILS # (AUTO) 8.6 (2.1-6.9); PLATELET COUNT 227 x10e3/uL (140-360); RED BLOOD COUNT 3.04 x10e6/uL (4.3-5.7); RED CELL DISTRIBUTION WIDTH 13.1 % (11.7-14.4)
[2021-01-06 18:17] LABS: ALBUMIN 3.8 g/dL (3.5-5.0); ALBUMIN/GLOBULIN RATIO 1.5 (0.8-2.0); ANION GAP 23.4 mmol/L (8-16); CALCIUM 9.2 mg/dL (8.4-10.2); CREATININE, SERUM 5.15 mg/dL (0.72-1.25)
[2021-01-06 18:26] LABS: POTASSIUM 7.4 mmol/L (3.5-5.1)
[2021-01-06 18:28] LABS: CREATINE KINASE MB 1.9 ng/mL (0-5.0)
[2021-01-06] MEDS ORDERED: CALCIUM GLUCONATE 10% INJ 4.65 MEQ in SODIUM CHLORIDE 0.9% 50ML 50 ML IV STA (18:38)
[2021-01-06] MEDS ORDERED: INSULIN REGULAR, HUMAN 100 UNIT/1 ML IV STA (18:38)
[2021-01-06] MEDS ORDERED: DEXTROSE 50% SYRINGE 50 ML IV STA (18:38)
[2021-01-06] MEDS ORDERED: FUROSEMIDE INJ 10 MG/ML 4 ML VIAL IV ONE (18:45)
[2021-01-06] MEDS ORDERED: SODIUM BICARBONATE 8.4% INJ 50 ML SYR IV STA (18:47)
[2021-01-06] MEDS ORDERED: SODIUM BICARBONATE 8.4% SYRING 150 ML in DEXTROSE 5%/0.45% SOD CHL 1,000 ML IV STA (20:26)
[2021-01-06] MEDS ORDERED: ALBUTEROL SULF 0.083% NEB SOLN 3 ML NEB NEB STA (20:57)
[2021-01-06 22:02] LABS: CALCIUM 8.3 mg/dL (8.4-10.2); CREATININE, SERUM 4.56 mg/dL (0.72-1.25)
[2021-01-06] MEDS ORDERED: SODIUM CHLORIDE 0.9% 1000ML 1,000 ML ONE (22:49)
[2021-01-06] MEDS ORDERED: LIDOCAINE HCL 1% LOCAL INJ 20 ML VIAL ONE (23:39)
[2021-01-07] VITALS (8 sets, daily range): BP systolic 82–117; BP diastolic 42–66
[2021-01-07] MEDS ORDERED: MANNITOL 25% 12.5GM/50 ML VIAL IV STA (00:45)
[2021-01-07] MEDS ORDERED: SODIUM CHLORIDE 0.9% 1000ML 1,000 ML IV STA ×3 (00:46→12:02)
[2021-01-07] MEDS ORDERED: SODIUM CHLORIDE 0.9% 1000ML 2,000 ML ONE ×2 (00:54→10:42)
[2021-01-07] MEDS ORDERED: SODIUM CHLORIDE 0.9% 1000ML 1,000 ML IV SCH ×2 (03:30→12:15)
[2021-01-07] MEDS ORDERED: LISINOPRIL5 MG PO (05:07)
[2021-01-07] MEDS ORDERED: LEVOCETIRIZINE D5 MG PO (05:07)
[2021-01-07] MEDS ORDERED: BUMETANIDE0.5 MG PO (05:07)
[2021-01-07] MEDS ORDERED: FUROSEMIDE40 MG PO (05:07)
[2021-01-07] MEDS ORDERED: DIGOXIN125 MCG PO (05:07)
[2021-01-07 06:05] LABS: CLARITY,URINE HAZY (CLEAR); COLOR,URINE YELLOW (YELLOW)
[2021-01-07 06:06] LABS: KETONES,URINE NEGATIVE (NEGATIVE); LEUKOCYTE ESTERASE ,URINE NEGATIVE (NEGATIVE); NITRITE,URINE NEGATIVE (NEGATIVE); PROTEIN,URINE DIPSTICK NEGATIVE (NEGATIVE); URINE UROBILINOGEN 0.2 mg/dL (0.2 - 1)
[2021-01-07 06:13] LABS: BACTERIA,URINE FEW /HPF; EPITHELIAL CELLS,URINE FEW /LPF; RBC,URINE >50 /HPF (0-5)
[2021-01-07 06:14] LABS: WBC,URINE (MAN) 21-50 /HPF (0-5)
[2021-01-07 09:07] LABS: ANION GAP 12.3 mmol/L (8-16); CALCIUM 7.9 mg/dL (8.4-10.2); CREATININE, SERUM 2.91 mg/dL (0.72-1.25); POTASSIUM 4.3 mmol/L (3.5-5.1)
[2021-01-07] MEDS ORDERED: SODIUM CHLORIDE 0.9% 1000ML 2,000 ML IV PRN (10:45)
[2021-01-07] MEDS ORDERED: HEPARIN SOD (PORCINE) 1000 UNIT/ML SDV IV PRN (10:45)
[2021-01-07 13:07] LABS: CLARITY,URINE CLEAR (CLEAR); COLOR,URINE YELLOW (YELLOW); KETONES,URINE NEGATIVE (NEGATIVE); LEUKOCYTE ESTERASE ,URINE NEGATIVE (NEGATIVE); NITRITE,URINE NEGATIVE (NEGATIVE); PROTEIN,URINE DIPSTICK NEGATIVE (NEGATIVE); URINE UROBILINOGEN 0.2 mg/dL (0.2 - 1)
[2021-01-07 13:24] LABS: WBC,URINE (MAN) 0-5 /HPF (0-5)
[2021-01-07] MEDS ORDERED: DEXTROSE 50% SYRINGE 50 ML IV PRN (15:00)
[2021-01-07] MEDS: SODIUM CHLORIDE 0.9% 1000ML 1,000 ML IV SCH (15:52)
[2021-01-07] MEDS: PANTOPRAZOLE SOD 40 MG TABEC PO SCH (15:53)
[2021-01-07] MEDS: INSULIN LISPRO 100 UNIT/1 ML 3ML VIAL SQ SCH ×2 (15:53→21:46)
[2021-01-07] MEDS: APIXAB 2.5 MG TABLET PO SCH (15:59)
[2021-01-07] MEDS ORDERED: METOPROLOL TARTRATE 25 MG TAB PO SCH (17:00)
[2021-01-07] MEDS: ATORVASTATIN 40 MG TAB PO SCH (21:45)
[2021-01-08] VITALS (7 sets, daily range): BP systolic 90–126; BP diastolic 30–52
[2021-01-08] MEDS: SODIUM CHLORIDE 0.9% 1000ML 1,000 ML IV SCH (02:30)
[2021-01-08 04:32] LABS: BASOPHILS % 0.4 % (0.0-1.0); EOSINOPHILS # (AUTO) 0.1 (0.0-0.4); EOSINOPHILS % 0.9 % (0.0-6.0); HEMATOCRIT 22.1 % (38.2-49.6); HEMOGLOBIN 7.4 g/dL (14.0-18.0); LYMPHOCYTES # (AUTO) 0.7 (1.0-3.2); LYMPHOCYTES % 12.4 % (18.0-39.1); MEAN CORPUSCULAR HEMOGLOBIN 32.5 pg (28-32); MEAN CORPUSCULAR HGB CONC 33.5 g/dL (31-35); MONOCYTES # (AUTO) 0.5 (0.2-0.8); MONOCYTES % 9.8 % (4.4-11.3); NEUTROPHILS # (AUTO) 4.1 (2.1-6.9); NEUTROPHILS % 75.9 % (38.7-80.0); PLATELET COUNT 126 x10e3/uL (140-360); RED BLOOD COUNT 2.28 x10e6/uL (4.3-5.7); RED CELL DISTRIBUTION WIDTH 13.1 % (11.7-14.4)
[2021-01-08 04:38] LABS: MEAN CORPUSCULAR VOLUME 96.9 fL (81-99)
[2021-01-08 05:03] LABS: ALBUMIN 2.9 g/dL (3.5-5.0); ALBUMIN/GLOBULIN RATIO 1.6 (0.8-2.0); ANION GAP 15.7 mmol/L (8-16); CALCIUM 7.5 mg/dL (8.4-10.2); CREATININE, SERUM 2.21 mg/dL (0.72-1.25); POTASSIUM 4.7 mmol/L (3.5-5.1)
[2021-01-08] MEDS: INSULIN LISPRO 100 UNIT/1 ML 3ML VIAL SQ SCH ×4 (08:15→20:35)
[2021-01-08] MEDS: PANTOPRAZOLE SOD 40 MG TABEC PO SCH ×2 (08:51→17:41)
[2021-01-08] MEDS: AMIODARONE HCL 200 MG TAB PO SCH (08:51)
[2021-01-08] MEDS: APIXAB 2.5 MG TABLET PO SCH ×2 (08:51→17:41)
[2021-01-08] MEDS: METOPROLOL TARTRATE 25 MG TAB PO SCH ×2 (09:00→17:41)
[2021-01-08] MEDS ORDERED: DIGOXIN 0.125 MG TAB PO SCH (09:00)
[2021-01-08 19:42] LABS: % IRON SATURATION 12 % (15-50); IRON 32 ug/dL (65-175); TOTAL IRON BINDING CAPACITY 265 ug/dL (261-478); TRANSFERRIN 189 mg/dL (174-364)
[2021-01-08] MEDS: ATORVASTATIN 40 MG TAB PO SCH (20:31)
[2021-01-09] VITALS (7 sets, daily range): BP systolic 90–123; BP diastolic 43–87
[2021-01-09 05:11] LABS: BASOPHILS % 0.3 % (0.0-1.0); EOSINOPHILS # (AUTO) 0.1 (0.0-0.4); EOSINOPHILS % 1.2 % (0.0-6.0); HEMATOCRIT 24.3 % (38.2-49.6); HEMOGLOBIN 8.2 g/dL (14.0-18.0); LYMPHOCYTES # (AUTO) 0.7 (1.0-3.2); LYMPHOCYTES % 7.6 % (18.0-39.1); MEAN CORPUSCULAR HEMOGLOBIN 32.5 pg (28-32); MEAN CORPUSCULAR HGB CONC 33.7 g/dL (31-35); MEAN CORPUSCULAR VOLUME 96.4 fL (81-99); MONOCYTES # (AUTO) 0.6 (0.2-0.8); MONOCYTES % 6.6 % (4.4-11.3); NEUTROPHILS # (AUTO) 7.8 (2.1-6.9); NEUTROPHILS % 83.8 % (38.7-80.0); PLATELET COUNT 140 x10e3/uL (140-360); RED BLOOD COUNT 2.52 x10e6/uL (4.3-5.7)
[2021-01-09 05:32] LABS: ALBUMIN 3.1 g/dL (3.5-5.0); ALBUMIN/GLOBULIN RATIO 1.6 (0.8-2.0); ANION GAP 13.6 mmol/L (8-16); CALCIUM 7.5 mg/dL (8.4-10.2); CREATININE, SERUM 1.91 mg/dL (0.72-1.25); POTASSIUM 4.6 mmol/L (3.5-5.1)
[2021-01-09] MEDS: INSULIN LISPRO 100 UNIT/1 ML 3ML VIAL SQ SCH ×4 (09:15→21:35)
[2021-01-09] MEDS: ASPIRIN 81 MG ENTERIC COATED PO SCH (09:15)
[2021-01-09] MEDS: AMIODARONE HCL 200 MG TAB PO SCH (09:15)
[2021-01-09] MEDS: METOPROLOL TARTRATE 25 MG TAB PO SCH ×2 (09:15→16:29)
[2021-01-09] MEDS: APIXAB 2.5 MG TABLET PO SCH ×2 (09:15→17:01)
[2021-01-09] MEDS: PANTOPRAZOLE SOD 40 MG TABEC PO SCH ×2 (09:15→17:01)
[2021-01-09] MEDS: IRON SUCROSE 100 MG in SODIUM CHLORIDE 0.9% 100 ML 100 ML IV SCH (12:43)
[2021-01-09] MEDS: ATORVASTATIN 40 MG TAB PO SCH (21:34)
[2021-01-10] VITALS (8 sets, daily range): BP systolic 98–111; BP diastolic 32–54
[2021-01-10 07:35] LABS: BASOPHILS % 0.3 % (0.0-1.0); EOSINOPHILS # (AUTO) 0.1 (0.0-0.4); EOSINOPHILS % 1.2 % (0.0-6.0); HEMATOCRIT 23.3 % (38.2-49.6); HEMOGLOBIN 7.8 g/dL (14.0-18.0); LYMPHOCYTES # (AUTO) 0.6 (1.0-3.2); LYMPHOCYTES % 8.3 % (18.0-39.1); MEAN CORPUSCULAR HEMOGLOBIN 32.4 pg (28-32); MEAN CORPUSCULAR HGB CONC 33.5 g/dL (31-35); MEAN CORPUSCULAR VOLUME 96.7 fL (81-99); MONOCYTES # (AUTO) 0.5 (0.2-0.8); MONOCYTES % 7.5 % (4.4-11.3); NEUTROPHILS # (AUTO) 5.9 (2.1-6.9); NEUTROPHILS % 82.1 % (38.7-80.0); PLATELET COUNT 127 x10e3/uL (140-360); RED BLOOD COUNT 2.41 x10e6/uL (4.3-5.7); RED CELL DISTRIBUTION WIDTH 12.8 % (11.7-14.4)
[2021-01-10 08:09] LABS: ANION GAP 13.1 mmol/L (8-16); CALCIUM 7.6 mg/dL (8.4-10.2); POTASSIUM 4.1 mmol/L (3.5-5.1)
[2021-01-10] MEDS: APIXAB 2.5 MG TABLET PO SCH ×2 (08:38→16:15)
[2021-01-10] MEDS: ASPIRIN 81 MG ENTERIC COATED PO SCH (08:38)
[2021-01-10] MEDS: PANTOPRAZOLE SOD 40 MG TABEC PO SCH ×2 (08:38→16:15)
[2021-01-10] MEDS: AMIODARONE HCL 200 MG TAB PO SCH (08:38)
[2021-01-10] MEDS: IRON SUCROSE 100 MG in SODIUM CHLORIDE 0.9% 100 ML 100 ML IV SCH (08:38)
[2021-01-10] MEDS: METOPROLOL TARTRATE 25 MG TAB PO SCH ×2 (08:39→16:15)
[2021-01-10 08:40] LABS: CREATININE, SERUM 1.71 mg/dL (0.72-1.25)
[2021-01-10] MEDS: INSULIN LISPRO 100 UNIT/1 ML 3ML VIAL SQ SCH ×4 (08:40→22:47)
[2021-01-10] MEDS: ATORVASTATIN 40 MG TAB PO SCH (21:00)
[2021-01-11] VITALS (8 sets, daily range): BP systolic 103–137; BP diastolic 51–58
[2021-01-11 05:09] LABS: BASOPHILS % 0.3 % (0.0-1.0); EOSINOPHILS # (AUTO) 0.1 (0.0-0.4); EOSINOPHILS % 1.3 % (0.0-6.0); HEMATOCRIT 24.4 % (38.2-49.6); HEMOGLOBIN 8.1 g/dL (14.0-18.0); LYMPHOCYTES # (AUTO) 0.5 (1.0-3.2); LYMPHOCYTES % 6.6 % (18.0-39.1); MEAN CORPUSCULAR HGB CONC 33.2 g/dL (31-35); MEAN CORPUSCULAR VOLUME 96.4 fL (81-99); MONOCYTES # (AUTO) 0.6 (0.2-0.8); MONOCYTES % 7.9 % (4.4-11.3); NEUTROPHILS # (AUTO) 6.6 (2.1-6.9); NEUTROPHILS % 83.3 % (38.7-80.0); PLATELET COUNT 141 x10e3/uL (140-360); RED BLOOD COUNT 2.53 x10e6/uL (4.3-5.7); RED CELL DISTRIBUTION WIDTH 13.2 % (11.7-14.4)
[2021-01-11 05:44] LABS: ANION GAP 14.3 mmol/L (8-16); CALCIUM 7.8 mg/dL (8.4-10.2); CREATININE, SERUM 1.71 mg/dL (0.72-1.25); POTASSIUM 4.3 mmol/L (3.5-5.1)
[2021-01-11] MEDS: PANTOPRAZOLE SOD 40 MG TABEC PO SCH ×2 (08:30→17:29)
[2021-01-11] MEDS: APIXAB 2.5 MG TABLET PO SCH ×2 (08:30→17:29)
[2021-01-11] MEDS: ASPIRIN 81 MG ENTERIC COATED PO SCH (08:30)
[2021-01-11] MEDS: METOPROLOL TARTRATE 25 MG TAB PO SCH ×2 (08:31→17:00)
[2021-01-11] MEDS: AMIODARONE HCL 200 MG TAB PO SCH (08:32)
[2021-01-11] MEDS: INSULIN LISPRO 100 UNIT/1 ML 3ML VIAL SQ SCH ×4 (08:38→20:24)
[2021-01-11] MEDS: IRON SUCROSE 100 MG in SODIUM CHLORIDE 0.9% 100 ML 100 ML IV SCH (09:55)
[2021-01-11] MEDS: ATORVASTATIN 40 MG TAB PO SCH (20:24)
[2021-01-12 00:14] VITALS: BP 104/93
[2021-01-12 04:57] VITALS: BP 114/36
[2021-01-12 05:41] LABS: BASOPHILS % 0.3 % (0.0-1.0); EOSINOPHILS # (AUTO) 0.1 (0.0-0.4); EOSINOPHILS % 2.2 % (0.0-6.0); LYMPHOCYTES # (AUTO) 0.5 (1.0-3.2); LYMPHOCYTES % 8.7 % (18.0-39.1); MEAN CORPUSCULAR HEMOGLOBIN 32.1 pg (28-32); MEAN CORPUSCULAR HGB CONC 33.3 g/dL (31-35); MEAN CORPUSCULAR VOLUME 96.4 fL (81-99); MONOCYTES # (AUTO) 0.5 (0.2-0.8); MONOCYTES % 8.1 % (4.4-11.3); NEUTROPHILS # (AUTO) 4.6 (2.1-6.9); PLATELET COUNT 160 x10e3/uL (140-360); RED BLOOD COUNT 2.49 x10e6/uL (4.3-5.7); RED CELL DISTRIBUTION WIDTH 13.2 % (11.7-14.4)
[2021-01-12 06:11] LABS: CALCIUM 7.9 mg/dL (8.4-10.2); CREATININE, SERUM 1.91 mg/dL (0.72-1.25)
[2021-01-12 08:00] VITALS: BP_SYST 104; BP_SYST 98; BP_DIAS 41; BP_DIAS 45
[2021-01-12] MEDS: METOPROLOL TARTRATE 25 MG TAB PO SCH (08:32)
[2021-01-12] MEDS: APIXAB 2.5 MG TABLET PO SCH (08:55)
[2021-01-12] MEDS: AMIODARONE HCL 200 MG TAB PO SCH (08:55)
[2021-01-12] MEDS: ASPIRIN 81 MG ENTERIC COATED PO SCH (08:55)
[2021-01-12] MEDS: IRON SUCROSE 100 MG in SODIUM CHLORIDE 0.9% 100 ML 100 ML IV SCH (08:55)
[2021-01-12] MEDS: PANTOPRAZOLE SOD 40 MG TABEC PO SCH (08:55)
[2021-01-12] MEDS: INSULIN LISPRO 100 UNIT/1 ML 3ML VIAL SQ SCH ×2 (08:57→12:12)
[2021-01-12 11:02] VITALS: BP 98/45
[2021-01-12 12:00] VITALS: BP 111/57
== END 2021-01-12 15:05 | disposition home or self-care (01) | DRG 682 ==
LOC: ER 17:11 → ERHOLD 19:22 → IMCU 01-07 04:28 → MED/SURG3 01-10 16:19
PROVIDERS: ADMIT Family Medicine; ATTEND Family Medicine
PROC: 02HV33Z Insertion of Infusion Device into Superior Vena Cava, Percutaneous Approach (ICD-10-PCS; principal; 2021-01-06)
PROC: 5A1D70Z Performance of Urinary Filtration, Intermittent, Less than 6 Hours Per Day (ICD-10-PCS; 2021-01-07)
DX: N17.0 Acute kidney failure with tubular necrosis (principal); R57.1 Hypovolemic shock; E87.5 Hyperkalemia; E11.9 Type 2 diabetes mellitus without complications; Z79.01 Long term (current) use of anticoagulants; Z95.2 Presence of prosthetic heart valve; I25.10 Atherosclerotic heart disease of native coronary artery without angina pectoris; Z95.1 Presence of aortocoronary bypass graft; Z20.822 Contact with and (suspected) exposure to COVID-19; E78.5 Hyperlipidemia, unspecified; E66.9 Obesity, unspecified; Z68.36 Body mass index [BMI] 36.0-36.9, adult; D63.8 Anemia in other chronic diseases classified elsewhere; I12.9 Hypertensive chronic kidney disease with stage 1 through stage 4 chronic kidney disease, or unspecified chronic kidney disease; N18.32 Chronic kidney disease, stage 3b
CPT/HCPCS: 36415; 36556; 51700; 70450; 71045; 72125; 74470; 76770; 80048; 80053; 80162; 81001; 82550; 82553; 82948; 83540; 83735; 83880; 84466; 84484; 85025; 86705; 86706; 87340; 93005; 93306; 93880; 96372; 99251; 99284; C1752; J0610; J1644; J1756; J1817; J1940; J2001; J2150; J7030; J7799; U0002

== ENCOUNTER 2021-02-22 08:02 | Inpatient (IN) | payer MEDICARE, OTHER ==
[~2021-02-22] VITALS: Ht 170.2 cm; Wt 105.2 kg
[~2021-02-22 08:02] MED LIST changes: +BUMETANIDE0.5 MG PO; +LEVOCETIRIZINE D5 MG PO; +LISINOPRIL5 MG PO
[2021-02-22 08:40] LABS: BASOPHILS % 0.4 % (0.0-1.0); EOSINOPHILS % 0.2 % (0.0-6.0); HEMATOCRIT 25.8 % (38.2-49.6); HEMOGLOBIN 8.8 g/dL (14.0-18.0); LYMPHOCYTES # (AUTO) 1.3 (1.0-3.2); LYMPHOCYTES % 11.5 % (18.0-39.1); MEAN CORPUSCULAR HEMOGLOBIN 31.3 pg (28-32); MEAN CORPUSCULAR HGB CONC 34.1 g/dL (31-35); MEAN CORPUSCULAR VOLUME 91.8 fL (81-99); MONOCYTES # (AUTO) 0.7 (0.2-0.8); MONOCYTES % 5.8 % (4.4-11.3); NEUTROPHILS # (AUTO) 9.1 (2.1-6.9); NEUTROPHILS % 81.5 % (38.7-80.0); PLATELET COUNT 274 x10e3/uL (140-360); RED BLOOD COUNT 2.81 x10e6/uL (4.3-5.7); RED CELL DISTRIBUTION WIDTH 13.5 % (11.7-14.4)
[2021-02-22 08:58] LABS: ALBUMIN 4.2 g/dL (3.5-5.0); ALBUMIN/GLOBULIN RATIO 1.6 (0.8-2.0); ANION GAP 17.2 mmol/L (8-16); CALCIUM 9.8 mg/dL (8.4-10.2); CREATININE, SERUM 3.25 mg/dL (0.72-1.25)
[2021-02-22] MEDS ORDERED: SODIUM CHLORIDE 0.9% 1000ML 1,000 ML IV SCH ×2 (09:15→09:30)
[2021-02-22] MEDS ORDERED: SODIUM BICARBONATE 8.4% INJ 50 ML SYR IV STA (09:17)
[2021-02-22 09:18] LABS: POTASSIUM 6.2 mmol/L (3.5-5.1)
[2021-02-22] MEDS ORDERED: INSULIN REGULAR, HUMAN 100 UNIT/1 ML IV ONE (09:30)
[2021-02-22] MEDS ORDERED: SOD POLYSTYRENE SULFONATE SUSP 15 GM/60 ML BTL PO ONE ×2 (09:30)
[2021-02-22] MEDS ORDERED: LACTULOSE SYRUP 20 GM/30 ML UDC PO ONE (09:30)
[2021-02-22] MEDS ORDERED: CALCIUM GLUCONATE 10% INJ 9.3 MEQ in SODIUM CHLORIDE 0.9% 100 ML 100 ML IV ONE (10:00)
[2021-02-22 10:50] LABS: CLARITY,URINE CLEAR (CLEAR); COLOR,URINE YELLOW (YELLOW); KETONES,URINE NEGATIVE (NEGATIVE); LEUKOCYTE ESTERASE ,URINE NEGATIVE (NEGATIVE); NITRITE,URINE NEGATIVE (NEGATIVE); PROTEIN,URINE DIPSTICK NEGATIVE (NEGATIVE); URINE UROBILINOGEN 0.2 mg/dL (0.2 - 1)
[2021-02-22] MEDS ORDERED: DEXTROSE 50% SYRINGE 50 ML IV PRN ×2 (11:00→18:00)
[2021-02-22 11:09] LABS: EPITHELIAL CELLS,URINE FEW /LPF; RBC,URINE 0-5 /HPF (0-5); WBC,URINE (MAN) 0-5 /HPF (0-5)
[2021-02-22 11:10] LABS: MUCUS,URINE MANY (RARE)
[2021-02-22] MEDS: SODIUM CHLORIDE 0.9% 1000ML 1,000 ML IV SCH ×2 (11:36→17:10)
[2021-02-22] MEDS: INSULIN REGULAR, HUMAN 100 UNIT/1 ML SQ SCH ×2 (11:39→17:00)
[2021-02-22] MEDS ORDERED: ACETAMINOPHEN 325 MG TAB PO ONE (12:00)
[2021-02-22] MEDS: ONDANSETRON HCL INJ 2MG/ML 2ML 2 MG/ML VIAL IV PRN (12:09)
[2021-02-22 12:53] LABS: ANION GAP 14.9 mmol/L (8-16); CALCIUM 9.7 mg/dL (8.4-10.2); CREATININE, SERUM 3.03 mg/dL (0.72-1.25)
[2021-02-22 12:54] LABS: POTASSIUM 5.9 mmol/L (3.5-5.1)
[2021-02-22 14:00] VITALS: BP 132/59
[2021-02-22 14:15] VITALS: BP 110/39
[2021-02-22 15:50] VITALS: BP 132/59
[2021-02-22 20:00] VITALS: BP 114/52
[2021-02-22] MEDS: ATORVASTATIN 40 MG TAB PO SCH (20:17)
[2021-02-22 21:03] VITALS: BP 114/52
[2021-02-23] VITALS (8 sets, daily range): BP systolic 100–155; BP diastolic 47–65
[2021-02-23 00:56] LABS: % IRON SATURATION 23 % (15-50); IRON 77 ug/dL (65-175); TOTAL IRON BINDING CAPACITY 339 ug/dL (261-478); TRANSFERRIN 242 mg/dL (174-364)
[2021-02-23] MEDS: SODIUM CHLORIDE 0.9% 1000ML 1,000 ML IV SCH ×4 (01:46→17:06)
[2021-02-23] MEDS: INSULIN GLARGINE 100 UNITS/ML VIAL SQ SCH ×3 (01:47→20:17)
[2021-02-23] MEDS: INSULIN LISPRO 100 UNIT/1 ML 3ML VIAL SQ SCH ×5 (01:47→20:14)
[2021-02-23 05:57] LABS: BASOPHILS % 0.1 % (0.0-1.0); EOSINOPHILS % 0.3 % (0.0-6.0); LYMPHOCYTES # (AUTO) 0.8 (1.0-3.2); LYMPHOCYTES % 10.2 % (18.0-39.1); MEAN CORPUSCULAR HEMOGLOBIN 31.6 pg (28-32); MEAN CORPUSCULAR HGB CONC 33.2 g/dL (31-35); MEAN CORPUSCULAR VOLUME 95.1 fL (81-99); MONOCYTES # (AUTO) 0.6 (0.2-0.8); MONOCYTES % 7.3 % (4.4-11.3); NEUTROPHILS # (AUTO) 6.1 (2.1-6.9); NEUTROPHILS % 81.3 % (38.7-80.0); PLATELET COUNT 155 x10e3/uL (140-360); RED BLOOD COUNT 2.06 x10e6/uL (4.3-5.7); RED CELL DISTRIBUTION WIDTH 13.9 % (11.7-14.4)
[2021-02-23 06:11] LABS: HEMOGLOBIN 6.5 g/dL (14.0-18.0)
[2021-02-23 06:12] LABS: HEMATOCRIT 19.6 % (38.2-49.6)
[2021-02-23 06:32] LABS: ANION GAP 11.5 mmol/L (8-16); CALCIUM 8.7 mg/dL (8.4-10.2); CREATININE, SERUM 2.35 mg/dL (0.72-1.25); POTASSIUM 4.5 mmol/L (3.5-5.1)
[2021-02-23] MEDS ORDERED: SODIUM CHLORIDE 0.9% 250ML 250 ML IV ONE (07:25)
[2021-02-23] MEDS: AMIODARONE HCL 200 MG TAB PO SCH (08:58)
[2021-02-23] MEDS: FERROUS SULFATE 325 MG TAB PO SCH ×2 (08:59→17:06)
[2021-02-23] MEDS: PANTOPRAZOLE SOD 40 MG TABEC PO SCH ×2 (09:00→17:06)
[2021-02-23] MEDS ORDERED: APIXAB 2.5 MG TABLET PO SCH (09:00)
[2021-02-23] MEDS: METOPROLOL TARTRATE 25 MG TAB PO SCH ×2 (09:00→17:06)
[2021-02-23] MEDS: DIGOXIN 0.125 MG TAB PO SCH (09:00)
[2021-02-23] MEDS ORDERED: HEPARIN SOD (PORCINE) 1000 UNIT/ML SDV ONE (14:25)
[2021-02-23] MEDS: SODIUM BICARBONATE 650 MG TAB PO SCH (17:06)
[2021-02-23] MEDS: ATORVASTATIN 40 MG TAB PO SCH (20:21)
[2021-02-24] VITALS (7 sets, daily range): BP systolic 102–136; BP diastolic 41–59
[2021-02-24] MEDS: SODIUM CHLORIDE 0.9% 1000ML 1,000 ML IV SCH ×4 (02:00→22:22)
[2021-02-24 05:51] LABS: ANION GAP 10.4 mmol/L (8-16); CALCIUM 7.7 mg/dL (8.4-10.2); CREATININE, SERUM 1.89 mg/dL (0.72-1.25); PHOSPHORUS 2.9 MG/DL (2.3-4.7); POTASSIUM 4.4 mmol/L (3.5-5.1)
[2021-02-24] MEDS: INSULIN LISPRO 100 UNIT/1 ML 3ML VIAL SQ SCH ×4 (07:30→20:16)
[2021-02-24] MEDS: CYANOCOBALAMIN INJ 1,000 MCG/ML VIAL IM SCH (07:55)
[2021-02-24] MEDS: AMIODARONE HCL 200 MG TAB PO SCH (07:55)
[2021-02-24] MEDS: FERROUS SULFATE 325 MG TAB PO SCH ×2 (07:55→16:44)
[2021-02-24] MEDS: FOLIC ACID 1 MG TAB PO SCH (07:55)
[2021-02-24] MEDS: SODIUM BICARBONATE 650 MG TAB PO SCH ×2 (07:56→16:42)
[2021-02-24] MEDS: METOPROLOL TARTRATE 25 MG TAB PO SCH ×2 (07:56→16:47)
[2021-02-24] MEDS: INSULIN GLARGINE 100 UNITS/ML VIAL SQ SCH ×2 (07:56→20:17)
[2021-02-24] MEDS: PANTOPRAZOLE SOD 40 MG TABEC PO SCH ×2 (07:56→16:42)
[2021-02-24] MEDS: DIGOXIN 0.125 MG TAB PO SCH (07:57)
[2021-02-24 07:58] LABS: BASOPHILS % 0.3 % (0.0-1.0); EOSINOPHILS # (AUTO) 0.1 (0.0-0.4); EOSINOPHILS % 1.7 % (0.0-6.0); HEMATOCRIT 22.1 % (38.2-49.6); HEMOGLOBIN 7.1 g/dL (14.0-18.0); LYMPHOCYTES # (AUTO) 0.8 (1.0-3.2); LYMPHOCYTES % 12.8 % (18.0-39.1); MEAN CORPUSCULAR HEMOGLOBIN 30.7 pg (28-32); MEAN CORPUSCULAR HGB CONC 32.1 g/dL (31-35); MEAN CORPUSCULAR VOLUME 95.7 fL (81-99); MONOCYTES # (AUTO) 0.5 (0.2-0.8); MONOCYTES % 7.4 % (4.4-11.3); PLATELET COUNT 118 x10e3/uL (140-360); RED BLOOD COUNT 2.31 x10e6/uL (4.3-5.7); RED CELL DISTRIBUTION WIDTH 14.7 % (11.7-14.4)
[2021-02-24 08:12] LABS: ALBUMIN/GLOBULIN RATIO 1.8 (0.8-2.0); ANION GAP 10.4 mmol/L (8-16); CALCIUM 7.8 mg/dL (8.4-10.2); CREATININE, SERUM 1.88 mg/dL (0.72-1.25); POTASSIUM 4.4 mmol/L (3.5-5.1)
[2021-02-24] MEDS ORDERED: FUROSEMIDE INJ 10 MG/ML 2 ML VIAL IV PRN (10:45)
[2021-02-24] MEDS ORDERED: SODIUM CHLORIDE 0.9% 250ML 250 ML IV ONE (11:00)
[2021-02-24] MEDS: ATORVASTATIN 40 MG TAB PO SCH (20:15)
[2021-02-25] VITALS (8 sets, daily range): BP systolic 101–129; BP diastolic 46–66
[2021-02-25] MEDS: SODIUM CHLORIDE 0.9% 1000ML 1,000 ML IV SCH ×2 (04:10→17:27)
[2021-02-25 05:45] LABS: BASOPHILS % 0.3 % (0.0-1.0); EOSINOPHILS # (AUTO) 0.2 (0.0-0.4); EOSINOPHILS % 1.6 % (0.0-6.0); HEMATOCRIT 25.5 % (38.2-49.6); HEMOGLOBIN 8.3 g/dL (14.0-18.0); LYMPHOCYTES % 9.4 % (18.0-39.1); MEAN CORPUSCULAR HEMOGLOBIN 31.2 pg (28-32); MEAN CORPUSCULAR HGB CONC 32.5 g/dL (31-35); MEAN CORPUSCULAR VOLUME 95.9 fL (81-99); MONOCYTES # (AUTO) 0.6 (0.2-0.8); NEUTROPHILS # (AUTO) 8.6 (2.1-6.9); NEUTROPHILS % 81.8 % (38.7-80.0); PLATELET COUNT 152 x10e3/uL (140-360); RED BLOOD COUNT 2.66 x10e6/uL (4.3-5.7); RED CELL DISTRIBUTION WIDTH 14.9 % (11.7-14.4)
[2021-02-25 05:59] LABS: ALBUMIN 3.3 g/dL (3.5-5.0); ALBUMIN/GLOBULIN RATIO 1.6 (0.8-2.0); ANION GAP 11.1 mmol/L (8-16); CALCIUM 7.9 mg/dL (8.4-10.2); CREATININE, SERUM 1.56 mg/dL (0.72-1.25); POTASSIUM 4.1 mmol/L (3.5-5.1)
[2021-02-25] MEDS: INSULIN LISPRO 100 UNIT/1 ML 3ML VIAL SQ SCH ×4 (07:30→20:57)
[2021-02-25] MEDS: CYANOCOBALAMIN INJ 1,000 MCG/ML VIAL IM SCH (09:19)
[2021-02-25] MEDS: AMIODARONE HCL 200 MG TAB PO SCH (09:20)
[2021-02-25] MEDS: FERROUS SULFATE 325 MG TAB PO SCH ×2 (09:20→17:31)
[2021-02-25] MEDS: FOLIC ACID 1 MG TAB PO SCH (09:21)
[2021-02-25] MEDS: PANTOPRAZOLE SOD 40 MG TABEC PO SCH ×2 (09:22→17:27)
[2021-02-25] MEDS: SODIUM BICARBONATE 650 MG TAB PO SCH ×2 (09:22→17:27)
[2021-02-25] MEDS: METOPROLOL TARTRATE 25 MG TAB PO SCH ×2 (09:22→17:27)
[2021-02-25] MEDS: INSULIN GLARGINE 100 UNITS/ML VIAL SQ SCH ×2 (10:48→20:58)
[2021-02-25] MEDS ORDERED: BISACODYL 5 MG TAB EC PO ONE (11:30)
[2021-02-25] MEDS: ONDANSETRON HCL INJ 2MG/ML 2ML 2 MG/ML VIAL IV PRN (13:11)
[2021-02-25] MEDS: ATORVASTATIN 40 MG TAB PO SCH (20:53)
[2021-02-26] VITALS (8 sets, daily range): BP systolic 113–144; BP diastolic 52–67
[2021-02-26] MEDS ORDERED: BISACODYL 5 MG TAB EC PO ONE ×3 (00:30→02:30)
[2021-02-26] MEDS: SODIUM CHLORIDE 0.9% 1000ML 1,000 ML IV SCH ×5 (01:10→21:21)
[2021-02-26] MEDS ORDERED: CITRATE OF MAGNESIA 300ML BOTTLE PO ONE ×3 (05:00→10:45)
[2021-02-26 06:48] LABS: BASOPHILS % 0.2 % (0.0-1.0); EOSINOPHILS % 0.4 % (0.0-6.0); HEMATOCRIT 27.4 % (38.2-49.6); HEMOGLOBIN 8.6 g/dL (14.0-18.0); LYMPHOCYTES # (AUTO) 0.5 (1.0-3.2); LYMPHOCYTES % 4.2 % (18.0-39.1); MEAN CORPUSCULAR HEMOGLOBIN 30.9 pg (28-32); MEAN CORPUSCULAR HGB CONC 31.4 g/dL (31-35); MEAN CORPUSCULAR VOLUME 98.6 fL (81-99); MONOCYTES # (AUTO) 0.7 (0.2-0.8); MONOCYTES % 6.2 % (4.4-11.3); NEUTROPHILS # (AUTO) 10.1 (2.1-6.9); NEUTROPHILS % 88.5 % (38.7-80.0); PLATELET COUNT 149 x10e3/uL (140-360); RED BLOOD COUNT 2.78 x10e6/uL (4.3-5.7); RED CELL DISTRIBUTION WIDTH 15.3 % (11.7-14.4)
[2021-02-26 07:17] LABS: ALBUMIN 3.2 g/dL (3.5-5.0); ALBUMIN/GLOBULIN RATIO 1.3 (0.8-2.0); ANION GAP 10.6 mmol/L (8-16); CALCIUM 7.6 mg/dL (8.4-10.2); CREATININE, SERUM 1.63 mg/dL (0.72-1.25); POTASSIUM 3.6 mmol/L (3.5-5.1)
[2021-02-26] MEDS: INSULIN LISPRO 100 UNIT/1 ML 3ML VIAL SQ SCH ×4 (07:30→20:31)
[2021-02-26] MEDS: INSULIN GLARGINE 100 UNITS/ML VIAL SQ SCH ×2 (08:06→20:32)
[2021-02-26] MEDS: FOLIC ACID 1 MG TAB PO SCH (08:56)
[2021-02-26] MEDS: FERROUS SULFATE 325 MG TAB PO SCH ×2 (08:56→16:43)
[2021-02-26] MEDS: SODIUM BICARBONATE 650 MG TAB PO SCH ×2 (08:57→16:45)
[2021-02-26] MEDS: CYANOCOBALAMIN INJ 1,000 MCG/ML VIAL IM SCH (08:57)
[2021-02-26] MEDS: PANTOPRAZOLE SOD 40 MG TABEC PO SCH ×2 (08:57→16:45)
[2021-02-26] MEDS: AMIODARONE HCL 200 MG TAB PO SCH (08:59)
[2021-02-26] MEDS: METOPROLOL TARTRATE 25 MG TAB PO SCH ×2 (08:59→16:45)
[2021-02-26] MEDS ORDERED: ONDANSETRON HCL 4 MG ORAL DISINTEGRATING TAB PO PRN (10:30)
[2021-02-26] MEDS: ATORVASTATIN 40 MG TAB PO SCH (20:30)
[2021-02-27] VITALS: BP 99/40
[2021-02-27] MEDS: SODIUM CHLORIDE 0.9% 1000ML 1,000 ML IV SCH (03:11)
[2021-02-27 06:00] VITALS: BP 121/51
[2021-02-27] MEDS: INSULIN LISPRO 100 UNIT/1 ML 3ML VIAL SQ SCH (07:28)
[2021-02-27] MEDS: INSULIN GLARGINE 100 UNITS/ML VIAL SQ SCH (07:30)
[2021-02-27 08:00] VITALS: BP 107/55
[2021-02-27] MEDS: METOPROLOL TARTRATE 25 MG TAB PO SCH (08:52)
[2021-02-27] MEDS: SODIUM BICARBONATE 650 MG TAB PO SCH (08:52)
[2021-02-27] MEDS: CYANOCOBALAMIN INJ 1,000 MCG/ML VIAL IM SCH (08:52)
[2021-02-27] MEDS: FERROUS SULFATE 325 MG TAB PO SCH (08:52)
[2021-02-27] MEDS: AMIODARONE HCL 200 MG TAB PO SCH (08:52)
[2021-02-27] MEDS: FOLIC ACID 1 MG TAB PO SCH (08:52)
[2021-02-27] MEDS: PANTOPRAZOLE SOD 40 MG TABEC PO SCH (08:52)
[2021-02-27 08:55] VITALS: BP 107/55
== END 2021-02-27 10:19 | disposition home or self-care (01) | DRG 682 ==
LOC: ER 08:05 → ERHOLD 09:41 → MED/SURG3 13:35
PROVIDERS: ADMIT Family Medicine; ATTEND Family Medicine
PROC: 30233N1 Transfusion of Nonautologous Red Blood Cells into Peripheral Vein, Percutaneous Approach (ICD-10-PCS; 2021-02-23)
PROC: 0DB68ZX Excision of Stomach, Via Natural or Artificial Opening Endoscopic, Diagnostic (ICD-10-PCS; 2021-02-24)
PROC: 0DB78ZX Excision of Stomach, Pylorus, Via Natural or Artificial Opening Endoscopic, Diagnostic (ICD-10-PCS; 2021-02-24)
PROC: 0DBL8ZZ Excision of Transverse Colon, Via Natural or Artificial Opening Endoscopic (ICD-10-PCS; principal; 2021-02-26 16:00)
DX: N17.9 Acute kidney failure, unspecified (principal); K29.71 Gastritis, unspecified, with bleeding; K57.31 Diverticulosis of large intestine without perforation or abscess with bleeding; D62 Acute posthemorrhagic anemia; E87.5 Hyperkalemia; I25.10 Atherosclerotic heart disease of native coronary artery without angina pectoris; Z95.1 Presence of aortocoronary bypass graft; I12.9 Hypertensive chronic kidney disease with stage 1 through stage 4 chronic kidney disease, or unspecified chronic kidney disease; N18.32 Chronic kidney disease, stage 3b; K59.00 Constipation, unspecified; K21.9 Gastro-esophageal reflux disease without esophagitis; D63.1 Anemia in chronic kidney disease; E11.22 Type 2 diabetes mellitus with diabetic chronic kidney disease; K64.8 Other hemorrhoids; Z79.01 Long term (current) use of anticoagulants; Z95.2 Presence of prosthetic heart valve; E78.5 Hyperlipidemia, unspecified
CPT/HCPCS: 36415; 43239; 45378; 45385; 71045; 74176; 76770; 78278; 80048; 80053; 81001; 82270; 82607; 82668; 82746; 82948; 83540; 83615; 83690; 83735; 84100; 84466; 84484; 85025; 85045; 86850; 86900; 86920; 88305; 88312; 88313; 93005; 96361; 96372; 99251; 99284; A9512; J0610; J1644; J1815; J1817; J2405; J3420; J7030; J7050; P9016; U0002

== ENCOUNTER 2021-10-17 17:32 | Emergency (ER) | payer MEDICARE, OTHER ==
[~2021-10-17] VITALS: Ht 170.2 cm; Wt 105.2 kg
[2021-10-17 18:04] LABS: BASOPHILS # (AUTO) 0.1 (0.0-0.1); BASOPHILS % 0.5 % (0.0-1.0); EOSINOPHILS # (AUTO) 0.1 (0.0-0.4); EOSINOPHILS % 0.8 % (0.0-6.0); HEMATOCRIT 31.8 % (38.2-49.6); HEMOGLOBIN 10.5 g/dL (14.0-18.0); LYMPHOCYTES # (AUTO) 0.7 (1.0-3.2); LYMPHOCYTES % 6.1 % (18.0-39.1); MEAN CORPUSCULAR HEMOGLOBIN 31.6 pg (28-32); MEAN CORPUSCULAR VOLUME 95.8 fL (81-99); MONOCYTES # (AUTO) 0.7 (0.2-0.8); NEUTROPHILS # (AUTO) 9.5 (2.1-6.9); NEUTROPHILS % 85.6 % (38.7-80.0); PLATELET COUNT 189 x10e3/uL (140-360); RED BLOOD COUNT 3.32 x10e6/uL (4.3-5.7); RED CELL DISTRIBUTION WIDTH 12.6 % (11.7-14.4)
[2021-10-17 18:22] LABS: ALBUMIN 3.5 g/dL (3.5-5.0); ALBUMIN/GLOBULIN RATIO 1.2 (0.8-2.0); ANION GAP 17.5 mmol/L (8-16); CALCIUM 8.3 mg/dL (8.4-10.2); CREATININE, SERUM 2.04 mg/dL (0.72-1.25); POTASSIUM 4.5 mmol/L (3.5-5.1)
[2021-10-17 18:28] LABS: CREATINE KINASE MB 1.6 ng/mL (0-5.0)
[2021-10-17 21:02] LABS: CREATINE KINASE MB 1.3 ng/mL (0-5.0)
[2021-10-17 21:35] VITALS: BP 136/67
== END 2021-10-17 21:37 | disposition home or self-care (01) ==
LOC: ER 17:45
DX: R06.02 Shortness of breath (principal); R61 Generalized hyperhidrosis; E11.65 Type 2 diabetes mellitus with hyperglycemia; I51.7 Cardiomegaly; I10 Essential (primary) hypertension; N28.9 Disorder of kidney and ureter, unspecified; E78.5 Hyperlipidemia, unspecified; K21.9 Gastro-esophageal reflux disease without esophagitis; I25.10 Atherosclerotic heart disease of native coronary artery without angina pectoris; R94.31 Abnormal electrocardiogram [ECG] [EKG]; Z95.1 Presence of aortocoronary bypass graft
CPT/HCPCS: 36415; 71045; 80053; 82550; 82553; 82948; 84484; 85025; 93005; 99283

== ENCOUNTER → 2024-04-08 | Day surgery (SDC) | payer MEDICARE ==
[2024-03-29 15:35] LABS: BASOPHILS % 0.6 % (0.0-1.0); EOSINOPHILS # (AUTO) 0.1 (0.0-0.4); EOSINOPHILS % 1.7 % (0.0-6.0); HEMATOCRIT 41.3 % (38.2-49.6); HEMOGLOBIN 14.6 g/dL (14.0-18.0); LYMPHOCYTES # (AUTO) 0.8 (1.0-3.2); LYMPHOCYTES % 12.3 % (18.0-39.1); MEAN CORPUSCULAR HEMOGLOBIN 31.9 pg (28-32); MEAN CORPUSCULAR HGB CONC 35.4 g/dL (31-35); MEAN CORPUSCULAR VOLUME 90.2 fL (81-99); MONOCYTES # (AUTO) 0.4 (0.2-0.8); MONOCYTES % 6.2 % (4.4-11.3); NEUTROPHILS % 78.7 % (38.7-80.0); PLATELET COUNT 163 x10e3/uL (140-360); RED BLOOD COUNT 4.58 x10e6/uL (4.3-5.7); RED CELL DISTRIBUTION WIDTH 12.2 % (11.7-14.4); WHITE BLOOD COUNT 6.33 x10e3/uL (4.8-10.8)
[~2024-04-08] MED LIST changes: +FLOMAX0.4 MG PO; +GEMTESA75 MG; +GLUCAGON FOR INJ 1 MG VIAL ONE; +HYOSCYAMINE SULFATE 0.5 MG/ML INJ ONE; +LEXAPRO5 MG PO; +LIDOCAINE HCL 2% LOCAL INJ 5 ML SDV VIAL INJ ONE; +PROPOFOL IV EMULSION 10 MG/ML 20 ML VIAL ONE; +QUETIAPINE FUMA25 MG PO; +TRAZODONE HCL100 MG PO; +VITAMIN D250 MCG
[2024-04-08] MEDS: LACTATED RINGER'S 1,000 ML ONE (10:18)
[2024-04-08 12:16] VITALS: TEMP 97.7
[2024-04-08 12:45] VITALS: BP 135/58; PULSE 55; RESP 16; O2SAT 98
== END | disposition home or self-care (01) ==
LOC: OR 09:49
PROVIDERS: ATTEND Internal Medicine Gastroenterology
DX: Z09 Encounter for follow-up examination after completed treatment for conditions other than malignant neoplasm (principal); D12.4 Benign neoplasm of descending colon; K57.30 Diverticulosis of large intestine without perforation or abscess without bleeding; K64.8 Other hemorrhoids; E10.9 Type 1 diabetes mellitus without complications; I25.810 Atherosclerosis of coronary artery bypass graft(s) without angina pectoris; I10 Essential (primary) hypertension; E78.5 Hyperlipidemia, unspecified; I49.9 Cardiac arrhythmia, unspecified; N28.9 Disorder of kidney and ureter, unspecified; F32.A Depression, unspecified; Z01.810 Encounter for preprocedural cardiovascular examination; Z01.812 Encounter for preprocedural laboratory examination; Z79.4 Long term (current) use of insulin; Z79.85 Long-term (current) use of injectable non-insulin antidiabetic drugs; Z79.02 Long term (current) use of antithrombotics/antiplatelets; Z79.899 Other long term (current) drug therapy; Z68.33 Body mass index [BMI] 33.0-33.9, adult; Z95.1 Presence of aortocoronary bypass graft
CPT/HCPCS: 36415; 45385; 85025; 93005; J1610; J1980; J2003; J2704; J7121

== ENCOUNTER 2024-11-15 14:37 | Inpatient (IN) | payer MEDICARE ==
[~2024-11-15] VITALS: Ht 170.2 cm; Wt 95.3 kg
[~2024-11-15 14:37] MED LIST changes: -GLUCAGON FOR INJ 1 MG VIAL ONE; -HYOSCYAMINE SULFATE 0.5 MG/ML INJ ONE; -LIDOCAINE HCL 2% LOCAL INJ 5 ML SDV VIAL INJ ONE; -PROPOFOL IV EMULSION 10 MG/ML 20 ML VIAL ONE
[2024-11-15 15:29] LABS: BASOPHILS % 0.6 % (0.0-1.0); EOSINOPHILS % 1.4 % (0.0-6.0); LYMPHOCYTES % 15.8 % (18.0-39.1); MONOCYTES % 7.6 % (4.4-11.3); NEUTROPHILS % 74.2 % (38.7-80.0); RED CELL DISTRIBUTION WIDTH 12.6 % (11.7-14.4)
[2024-11-15 15:53] LABS: EST GLOMERULAR FILTRATION RATE 37.0 ML/MIN (>=60)
[2024-11-15] MEDS ORDERED: IOPAMIDOL 370 MG/ML 100 ML INFUS..BTL INJ ONE (16:30)
[2024-11-15] MEDS ORDERED: ONDANSETRON HCL INJ 2MG/ML 2ML 2 MG/ML VIAL IV PRN (18:30)
[2024-11-15 19:23] LABS: LEUKOCYTE ESTERASE ,URINE NEGATIVE (NEGATIVE); PROTEIN,URINE DIPSTICK NEGATIVE (NEGATIVE); URINE UROBILINOGEN 0.2 mg/dL (0.2 - 1)
[2024-11-15 19:33] LABS: WBC,URINE (MAN) 0-5 /HPF (0-5)
[2024-11-15] MEDS: SODIUM CHLORIDE 0.9% 1000ML 1,000 ML IV SCH (20:24)
[2024-11-15 20:27] VITALS: PULSE 61; RESP 18; TEMP 97.6
[2024-11-15 20:36] VITALS: BP 122/98; PULSE 65; RESP 20; TEMP 97.5; O2SAT 97
[2024-11-15 21:30] VITALS: BP 122/98; PULSE 65; RESP 20; TEMP 97.5; O2SAT 97
[2024-11-15] MEDS ORDERED: INSULIN GLARGINE 100 UNITS/ML VIAL SQ SCH (22:45)
[2024-11-15] MEDS ORDERED: DEXTROSE 50% SYRINGE 50 ML IV PRN (22:45)
[2024-11-16] VITALS: BP 139/39; PULSE 51; RESP 18; TEMP 97.8; O2SAT 96
[2024-11-16 05:59] LABS: BASOPHILS % 0.5 % (0.0-1.0); EOSINOPHILS % 1.5 % (0.0-6.0); LYMPHOCYTES % 15.2 % (18.0-39.1); MONOCYTES % 7.0 % (4.4-11.3); NEUTROPHILS % 75.5 % (38.7-80.0); RED CELL DISTRIBUTION WIDTH 12.6 % (11.7-14.4)
[2024-11-16 06:33] LABS: CHOL/HDL RATIO 4.8 (3.9-4.7); EST GLOMERULAR FILTRATION RATE 41.0 ML/MIN (>=60); LDL CHOLESTEROL 121.0 MG/DL (60-130)
[2024-11-16 08:38] VITALS: BP 130/58; PULSE 56; RESP 20; TEMP 97.7; O2SAT 96
[2024-11-16 09:00] VITALS: BP 130/58; PULSE 56; RESP 20; TEMP 97.7; O2SAT 96
[2024-11-16] MEDS: QUETIAPINE FUMARATE 25 MG TAB PO SCH (09:00)
[2024-11-16] MEDS: INSULIN LISPRO 100 UNIT/1 ML 3ML VIAL SQ SCH ×2 (09:00→09:17)
[2024-11-16] MEDS: FERROUS SULFATE 325 MG TAB PO SCH (09:18)
[2024-11-16] MEDS: BUMETANIDE 1 MG TAB PO SCH (09:19)
[2024-11-16] MEDS: AMIODARONE HCL 200 MG TAB PO SCH (09:20)
[2024-11-16] MEDS: ESCITALOPRAM OXALATE 10 MG TAB PO SCH (09:21)
[2024-11-16] MEDS: METOPROLOL TARTRATE 25 MG TAB PO SCH (09:21)
[2024-11-16] MEDS: TAMSULOSIN HCL 0.4 MG CAP PO SCH (09:22)
[2024-11-16] MEDS: DIGOXIN 0.125 MG TAB PO SCH (09:22)
[2024-11-16] MEDS: APIXABAN 2.5 MG TABLET PO SCH (09:22)
[2024-11-16] MEDS: INSULIN GLARGINE 100 UNITS/ML VIAL SQ SCH (09:24)
[2024-11-16 17:16] VITALS: BP 149/67; PULSE 58; RESP 20; TEMP 98.4; O2SAT 97
[2024-11-16] MEDS: LORATADINE 10 MG TAB PO SCH (17:29)
[2024-11-16 20:00] VITALS: BP 179/51; PULSE 58; RESP 20; TEMP 98.6; O2SAT 98
[2024-11-16] MEDS: ATORVASTATIN 40 MG TAB PO SCH (21:19)
[2024-11-16] MEDS: TRAZODONE HCL 50 MG TAB PO SCH (21:20)
[2024-11-17] VITALS (9 sets, daily range): BP systolic 108–166; BP diastolic 52–88; PULSE 52–65; RESP 17–20; TEMP 97.3–98; O2SAT 96–100
[2024-11-17] MEDS: METOPROLOL TARTRATE 25 MG TAB PO SCH (17:07)
[2024-11-18 02:43] VITALS: BP 167/55; PULSE 57; RESP 17; TEMP 97.8; O2SAT 95
[2024-11-18 07:18] VITALS: BP 137/46; PULSE 55; RESP 18; TEMP 97.7; O2SAT 94
[2024-11-18 08:00] VITALS: BP 137/46; PULSE 55; RESP 18; TEMP 97.7; O2SAT 94
[2024-11-18 10:59] VITALS: BP 148/54; PULSE 55; RESP 18; TEMP 97.5; O2SAT 97
[2024-11-18 14:53] VITALS: BP 132/47; PULSE 65; RESP 18; TEMP 97.5; O2SAT 97
[2024-11-18 17:04] VITALS: BP 132/47; PULSE 65
== END 2024-11-18 19:30 | disposition short-term general hospital (02) | DRG 68 ==
LOC: ER 16:38 → ERHOLD 18:31 → MED/SURG2 21:05 → OBSVTOIN 11-16 15:39
PROVIDERS: ADMIT Family Medicine; ATTEND Family Medicine
DX: I65.22 Occlusion and stenosis of left carotid artery (principal); I69.354 Hemiplegia and hemiparesis following cerebral infarction affecting left non-dominant side; G81.91 Hemiplegia, unspecified affecting right dominant side; N17.9 Acute kidney failure, unspecified; E11.22 Type 2 diabetes mellitus with diabetic chronic kidney disease; E11.40 Type 2 diabetes mellitus with diabetic neuropathy, unspecified; I10 Essential (primary) hypertension; I48.0 Paroxysmal atrial fibrillation; E78.5 Hyperlipidemia, unspecified; I25.10 Atherosclerotic heart disease of native coronary artery without angina pectoris; N18.9 Chronic kidney disease, unspecified; F32.A Depression, unspecified; R47.81 Slurred speech; K21.9 Gastro-esophageal reflux disease without esophagitis; R20.2 Paresthesia of skin; Z79.01 Long term (current) use of anticoagulants; Z79.4 Long term (current) use of insulin; Z95.1 Presence of aortocoronary bypass graft; Z95.3 Presence of xenogenic heart valve; Z82.3 Family history of stroke
CPT/HCPCS: 36415; 70450; 70496; 70498; 70551; 80053; 80061; 81001; 82550; 82607; 82948; 83036; 84484; 85025; 93005; 93306; 96372; 99285; G0378; J1815; J7030; Q9967